=== PATIENT | female | born 1955 | race Caucasian/White ===

== ENCOUNTER → 2020-09-21 14:42 | Outpatient (CLI) | payer MEDICARE, SELFPAY ==
--- NOTE | ~2020-09-21 | MM_ITS ---
EXAMINATION: MM screening [facility] BI w charli HISTORY: Screening mammogram TECHNIQUE: Craniocaudal and mediolateral oblique 3-D tomosynthesis images were obtained and synthetic 2-D images were generated. CAD analysis was submitted and interpreted. COMPARISON: 07/23/2019, 06/20/2018, 07/25/2017 BREAST PARENCHYMAL COMPOSITION: There are scattered areas of fibroglandular density. FINDINGS: There is no evidence of suspicious mass, calcification, or architectural distortion to sugg est malignancy in either breast. There has been no suspicious interval change. IMPRESSION: 1. No mammographic evidence of malignancy. 2. Recommend routine screening mammography in one year. BI-RADS Category 1: Negative Reviewed, dictated and finalized at location A. MBLER BONDING
== END ==
PROVIDERS: PCP Internal Medicine; Visit Provider Obstetrics & Gynecology
DX: Z12.31 Encounter for screening mammogram for malignant neoplasm of breast (principal)
CPT/HCPCS: 77063; 77067

== ENCOUNTER → 2022-01-20 10:02 | Outpatient (CLI) | payer MEDICARE, SELFPAY ==
--- NOTE | ~2022-01-20 | MM_ITS ---
EXAMINATION: MM screening [facility] BI w charli HISTORY: Screening mammogram TECHNIQUE: Craniocaudal and mediolateral oblique 3-D tomosynthesis images were obtained and synthetic 2-D images were generated. CAD analysis was submitted and interpreted. COMPARISON: 09/21/2020, 07/23/2019 bilateral screening mammogram examinations BREAST PARENCHYMAL COMPOSITION: There are scattered areas of fibroglandular density. FINDINGS: There is no evidence of suspicious mass, calcification, or architectural distortion to sugg est malignancy in either breast. There has been no suspicious interval change. IMPRESSION: 1. No mammographic evidence of malignancy. 2. Recommend routine screening mammography in one year. BI-RADS Category 1: Negative Reviewed, dictated and finalized at location A.
== END ==
PROVIDERS: PCP Internal Medicine; Visit Provider Obstetrics & Gynecology
DX: Z12.31 Encounter for screening mammogram for malignant neoplasm of breast (principal)
CPT/HCPCS: 77063; 77067

== ENCOUNTER 2022-11-11 09:12 | Outpatient (CLI) | payer MEDICARE, SELFPAY ==
[2022-11-11 10:09] LABS: Hematocrit 32.9 % (37.0-47.0); Hemoglobin 11.1 g/dL (12.0-15.0); Mean Corpuscular HGB Conc 33.7 g/dl (32-36); Mean Corpuscular Hemoglobin 30.1 pg (26-34); Mean Corpuscular Volume 89.2 fl (80-100); Platelet Count Result 351 k/mm3 (150-375); Red Blood Count 3.69 M/mm3 (4.2-5.4); Red Cell Distribution Width 13.6 % (11.5-14.5)
[2022-11-11 10:30] LABS: Anion Gap 4 mmol/L (8-16); Blood Urea Nitrogen 16 mg/dL (7-17); Carbon Dioxide 30 mmol/L (22-30); Chloride 102 mmol/L (98-107); Estimated Glomerular Filt Rate > 60; Glucose 101 mg/dL (65-110); Potassium 4.1 mmol/L (3.4-5.0); Sodium 136 mmol/L (137-145)
== END 2022-11-11 09:13 | disposition home or self-care (01) ==
LOC: ANHSURGERY 09:19
PROVIDERS: Anesthesiology; PCP Internal Medicine; Visit Provider Obstetrics & Gynecology
DX: N95.0 Postmenopausal bleeding (principal); Z51.81 Encounter for therapeutic drug level monitoring; Z01.818 Encounter for other preprocedural examination; I10 Essential (primary) hypertension
CPT/HCPCS: 36415; 80048; 85027; 93005

== ENCOUNTER 2022-11-17 00:18 | Day surgery (SDC) | payer MEDICARE, SELFPAY ==
[2022-11-10 15:10] VITALS: BMI 24.5
--- NOTE | 2022-11-10 15:31 | PC.NURSE ---
Report to the Outpatient Waiting Room, entrance under the green pavilion located off [facility], at time __8:15AM on date _11/17/22 . Planned Procedure Time: __10:15AM . Time changes happen often and if your time is changed the preop area will call you the afternoon before. - You and your visitor will be asked to self-screen and do not enter if you have any COVID symptoms. - Only one visitor is requested with a max of two and NO children visitors are allowed at this time. - The patient visitor may be requested to leave or wait in car when not with patient due to distancing restrictions. - A mask is optional within the hospital at this time. Patients may have clear liquids (water, carbonated beverages, clear teas, apple juice) until 3 hours prior to surgery with a maximum of 20 ounces. - No food from midnight until time of surgery Take the following medications with a SIP of water the morning of surgery: ____EYE DROPS DO NOT STOP ANY OF YOUR OTHER PRESCRIPTION MEDICATIONS PRIOR TO SURGERY ?EXCEPT THE FOLLOWING Medications to discontinue per physician ___HOLD ALL VITAMINS/SUPPLEMENTS 3 DAYS PRE-OP Date to take last dose___11/13/22 Please no make-up, nail kinyarwanda, hairspray, perfume, deodorant, or body powder the day of surgery. No jewelry (including any body piercings) or valuables the day of surgery, leave them at home. Please take a shower or bath the night before, or the morning of, surgery with an antibacterial soap. Wear comfortable, loose fitting clothing. Children are encouraged to wear pajamas. - Jewelry must be removed prior to entering the operating room. Rings and piercings that are not removed may be cut off. - The hospital will not accept responsibility for valuables. - Please leave all valuables, including medications, at home the day of surgery. If you are going home after surgery, a licensed truck driver must drive you home. - NO public transportation without another adult if you receive anesthesia. - We recommend that an adult stay with you for 24 hours following discharge. - We also recommend that you do not drive, make important decision, drink alcoholic beverages, or take any drugs that were not prescribed by your health care provider for at least 24 hours after your discharge time. Follow any additional instructions given to you from your surgeon. If you or anyone in your household have experienced Covid symptoms in the past week, please notify your surgeon or the nurse liaison at the phone number below for possible testing. Telephone instructions given to __PATIENT/HUSBAND_and asked if any additional questions and then verbalized understanding. Patient advised to call surgeon office or pre surgery nurse liaison [phone] if any additional questions.
--- NOTE | 2022-11-16 12:03 | WPDANESEPPF ---
Anes - Initial Pre Proc Eval Procedure: Operation Date: 11/17/22 09:15 Proposed Procedures p Hysteroscopy Dilation and Curettage - Venancio Trinidad MD Date/Time: 11/16/22 12:03 Surgeon: Venancio Trinidad MD Pre Op Diagnosis: post menopausal bleeding Patient Data Age: 67 Gender: F Height: 1.55 m Weight: 59 kg Allergies Allergy/AdvReac Type Severity Reaction Status Date / Time bacitracin Allergy Intermediate Swelling Verified 11/17/22 08:03 [From Neosporin ([id number])] celecoxib [From Celebrex] Allergy Intermediate Hives Verified 11/17/22 08:03 neomycin Allergy Intermediate Swelling Verified 11/17/22 08:03 [From Neosporin ([id number])] polymyxin B Allergy Intermediate Swelling Verified 11/17/22 08:03 [From Neosporin ([id number])] propoxyphene Allergy Intermediate Rash Verified 11/17/22 08:03 [From Darvocet-N 100] diclofenac AdvReac Intermediate Vomiting Verified 11/17/22 08:03 adhesive tape AdvReac Redness of Verified 11/17/22 08:03 Skin/IRRITATION Home Medications Medication Instructions Recorded Confirmed Type cetirizine 10 mg disintegrating 10 mg PO DAILY 11/24/21 11/10/22 History tablet folic acid 1 mg tablet 1 mg PO DAILY 11/24/21 11/10/22 History lisinopril 10 1 tablet PO QAM 11/24/21 11/10/22 History mg-hydrochlorothiazide 12.5 mg tablet methotrexate sodium 2.5 mg tablet 20 mg PO WEEKLY 11/24/21 11/10/22 History montelukast 10 mg tablet 10 mg PO DAILY 11/24/21 11/10/22 History rosuvastatin 20 mg tablet 20 mg PO DAILY 11/24/21 11/10/22 History tofacitinib 11 mg tablet,extended 11 mg PO DAILY 11/24/21 11/10/22 History release 24 hr (Xeljanz XR) brimonidine 0.2 % eye drops 1 drp LEFT EYE BID 11/10/22 11/10/22 History ibuprofen 200 mg tablet (Advil) 400 mg PO Q6H PRN Pain 11/10/22 11/10/22 History obvxtqdlpspd-lnoibfpf-nfrwkw tablet 1 tablet PO DAILY 11/10/22 11/10/22 History psyllium husk 0.4 gram capsule 0.4 g PO DAILY 11/10/22 11/10/22 History (Metamucil) timolol maleate 0.5 % eye drops 1 drp LEFT EYE BID 11/10/22 11/10/22 History clobetasol 0.05 % topical ointment 1 applic topical DAILY 11/11/22 11/11/22 History Patient hx anesthesia problems: none Family hx anesthesia problems: none Results Review: All pre-operative results and documents have been reviewed as part of the pre-operative evaluation. [facility] Past Medical History Medical History Acute arthritis Glaucoma High cholesterol Hypertension Psoriasis Surgical History Surgical History (Updated 10/25/22 @ 08:39 by LIANG Mueller) H/O eye surgery cataract removal implant in left eye History of dilation and curettage History of mandibular surgery (~1993) wires in jaw from surgery Family History Family History Other Carcinoma of colon Cerebrovascular accident Diabetes mellitus Heart disease Neoplasm of brain Social History Social History (Updated 10/25/22 @ 08:36 by LIANG Mueller) Smoking packs per day: 1 Smoking cigarettes per day: 20.0 Years smoked: 35 Smoking pack-years: 35.00 Smoking status: Former smoker Tobacco type: cigarettes Smoking end date: 03/18/11 Additional smoking assessment comments: quit 2010 Alcohol intake: never Substance use: never Substance use type: does not use Living arrangements: with family Additional living arrangements comments: [facility] Occupation/Education: retired Gender identity (if verbalized by the patient): Female Sexual Orientation (if Verbalized by the Patient): Straight or Heterosexual Spiritual care concerns: No Anes - Eval Final PreProcedure Day of Procedure 11/16/22 12:03 Patient weight: normal Heart: regular rate and rhythm Lungs: clear to auscultation and normal air movement Airway: Mallampati scale class II Neurological: alert and o
--- NOTE | 2022-11-17 06:59 | WPDHPUPDATE1 ---
History and Physical Update Update Date/Time: 11/17/22 06:59 History and Physical has been reviewed, including an updated exam of the patient. There are NO changes in the patient's condition. Risks, benefits, and alternatives have been discussed and questions answered. Patient agrees to proceed with procedure.
[2022-11-17] MEDS: LACTATED RINGERS 1,000 ML 30 ML IV CONT ×2 (07:45→09:34)
[2022-11-17] MEDS: ACETAMINOPHEN 500 MG TABLET 1000 MG PO (08:05)
[2022-11-17] MEDS: KETOROLAC 30 MG/ML VIAL (*BKC) IV PUSH (09:32)
--- NOTE | 2022-11-17 09:39 | W.PM.PROC2 ---
Procedure Note - Detailed Date of Procedure 11/17/22 Pre-op Diagnosis post menopausal bleeding Post-op Diagnosis Same Procedure Performed 1. Hysteroscopy with uterine curettings Surgeon Venancio Trinidad MD Anesthesia MAC and Local Findings Hysteroscopic exam reveals atrophic endometrial cavity with no abnormalities, no polyps or other evidence of etiology of bleed. Description of Procedure Patient was prepped and draped in usual manner for this procedure. Pediatric speculum was placed in the vagina the cervix was readily evaluated. Hysteroscope was placed in the endometrial cavity without difficulty and atrophy was noted. Throughout the entire endometrial cavity as well as endocervical canal there were no abnormalities noted. Curettings were obtained though tissue was scant due to the atrophy. At this point the procedure was considered terminated and the patient was sent to the recovery room in stable condition. Estimated Blood Loss 10 Drains No Packing No Pathology Yes Complications No immediate complications Condition Stable Disposition PACU [facility] Billing Surgery - Charge Forward: Surgery Billing
[2022-11-17 09:43] VITALS: BP 153/77; PULSE 70; RESP 16; O2SAT 94
[2022-11-17 10:10] VITALS: BP 120/94; PULSE 78; RESP 16
[2022-11-17] MEDS: oxyCODONE HCL (*CRX) 5 MG TAB IR PO (10:15)
[2022-11-17 10:39] VITALS: BP 165/67; PULSE 58; RESP 16
== END 2022-11-17 10:45 | disposition home or self-care (01) ==
PROVIDERS: PCP Internal Medicine; Visit Provider Obstetrics & Gynecology
PROC: 0U5B8ZZ Destruction of Endometrium, Via Natural or Artificial Opening Endoscopic (ICD-10-PCS; CPT 58563; principal; 2022-11-17 09:15)
DX: C54.1 Malignant neoplasm of endometrium (principal); N95.0 Postmenopausal bleeding; E78.00 Pure hypercholesterolemia, unspecified; I10 Essential (primary) hypertension; H40.9 Unspecified glaucoma; L40.9 Psoriasis, unspecified; Z87.891 Personal history of nicotine dependence
CPT/HCPCS: 58558; 36415; 80048; 85027; 88305; A9270; J1100; J1885; J2250; J2405; J2704; J3010; J7120

== ENCOUNTER → 2023-02-08 13:52 | Outpatient (CLI) | payer MEDICARE, SELFPAY ==
--- NOTE | ~2023-02-08 | CT_ITS ---
CT Scan of the Chest without Contrast: Clinical Indication: Lung cancer screening, personal history of nicotine dependence Technique: Contiguous sections were acquired throughout the chest without intravenous contrast. Dose reduction technique was used on this scan by utilizing automated exposure control and iterative recon struction technique. The dose-length product (DLP) was 49.73 mGy-cm. Findings: There is no evidence of any significant mediastinal, hilar or axillary lymphadenopathy. There are mil d atherosclerotic calcifications of the aorta and coronary arteries. There is no evidence of pleural or pericardial effusion. Possible very subtle 6 mm groundglass opacity in the right upper lobe (axial image 23). No other pulm onary nodule seen. Images through the upper abdomen reveal no abnormalities. Impression: Lung RADS 2: Benign appearance. 12 month follow-up screening CT advised. Reviewed, dictated and finalized at location . Impression: Lung RADS 2: Benign appearance. 12 month follow-up screening CT advised.
== END ==
PROVIDERS: PCP Internal Medicine; Visit Provider Internal Medicine
DX: Z12.2 Encounter for screening for malignant neoplasm of respiratory organs (principal); F17.210 Nicotine dependence, cigarettes, uncomplicated
CPT/HCPCS: 71271

== ENCOUNTER → 2023-02-08 13:58 | Outpatient (CLI) | payer MEDICARE, SELFPAY ==
--- NOTE | ~2023-02-08 | MM_ITS ---
EXAMINATION: MM screening [facility] BI w charli HISTORY: Screening mammogram TECHNIQUE: Craniocaudal and mediolateral oblique 3-D tomosynthesis images were obtained and synthetic 2-D images were generated. CAD analysis was submitted and interpreted. COMPARISON: 01/20/2022, 10/01/2020, 07/23/2019 BREAST PARENCHYMAL COMPOSITION: There are scattered areas of fibroglandular density. FINDINGS: No suspicious mass, calcification, or architectural distortion are identified in either valeria ast to suggest malignancy. There has been no suspicious interval change. IMPRESSION: 1. No mammographic evidence of malignancy. 2. Recommend routine screening mammography in one year. BI-RADS Category 1: Negative Reviewed, dictated and finalized at location A.
== END ==
PROVIDERS: Visit Provider Obstetrics & Gynecology
DX: Z12.31 Encounter for screening mammogram for malignant neoplasm of breast (principal)
CPT/HCPCS: 77063; 77067

== ENCOUNTER 2024-03-25 14:36 | Outpatient (CLI) | payer MEDICARE, SELFPAY ==
--- NOTE | ~2024-03-25 | MM_ITS ---
EXAMINATION: MM screening [facility] BI w charli HISTORY: Screening TECHNIQUE: Craniocaudal and mediolateral oblique 3-D tomosynthesis images were obtained and synthetic 2-D images were generated. CAD analysis was submitted and interpreted. COMPARISON: Comparison to multiple prior studies sequentially, with oldest reviewed study dated 03/2017. BREAST PARENCHYMAL COMPOSITION: Not dense: There are scattered areas of fibroglandular density. FINDINGS: There is no evidence of suspicious mass, calcification, or architectural distortion to sugg est malignancy in either breast. There has been no suspicious interval change. IMPRESSION: 1. No mammographic evidence of malignancy. 2. Recommend routine screening mammography in one year. BI-RADS Category 1: Negative Reviewed, dictated and finalized at location B.
== END 2024-03-25 14:37 ==
LOC: MICIMG 14:39
PROVIDERS: Visit Provider Obstetrics & Gynecology
DX: Z12.31 Encounter for screening mammogram for malignant neoplasm of breast (principal)
CPT/HCPCS: 77063; 77067

== ENCOUNTER 2024-03-25 14:41 | Outpatient (CLI) | payer MEDICARE, SELFPAY ==
--- NOTE | ~2024-03-25 | XR_ITS ---
EXAMINATION: XR cervical spine 4-5V DATE: 03/25/2024 15:10 INDICATION: Neck pain and stiffness and tingling. Segmental and somatic dysfunction of head region. TECHNIQUE: 5 views of cervical spine were obtained. COMPARISON: None. FINDINGS: There is 3 degrees dextrocurvature of cervical spine. Vertebral body heights are normal. Th ere is moderately decreased disc height at C3-C4 and severely decreased disc height at C4-C5, C5-C6, and C6-C7. There is multilevel uncovertebral joint osteoarthritis, severe bilaterally from C4-C5 thro ugh C6-C7. There is multilevel facet joint osteoarthritis, severe at C7-T1. There is mild central can al stenosis at C4-C5, C5-C6, and C6-C7. On the left, there is mild neural foraminal stenosis at C4-C 5, C5-C6, and C6-C7. On the right, there is mild neural foraminal stenosis at C3-C4 and moderate neur al foraminal stenosis at C4-C5, C5-C6, and C6-C7. No prevertebral soft tissue swelling. There is wire fixation of the mandible. IMPRESSION: 1. Severe cervical spondylosis. Reviewed, dictated and finalized at location E.
== END 2024-03-25 14:42 ==
PROVIDERS: PCP Chiropractor; Visit Provider Internal Medicine
DX: M99.00 Segmental and somatic dysfunction of head region (principal); M47.892 Other spondylosis, cervical region
CPT/HCPCS: 72050

== ENCOUNTER 2024-04-17 07:00 | Outpatient (NON) | payer MEDICARE, SELFPAY | END 2024-04-17 07:01 | disposition home or self-care (01) | LOC: ANHLAB 04-18 10:00 | PROVIDERS: PCP Internal Medicine; Visit Provider Internal Medicine Gastroenterology | DX: R63.4 Abnormal weight loss (principal) | CPT/HCPCS: 88305 ==

== ENCOUNTER 2024-04-17 08:20 | Day surgery (SDC) | payer MEDICARE, SELFPAY ==
[2024-04-05 09:58] VITALS: BMI 22.5
[2024-04-05 10:43] VITALS: BMI 22.1
--- NOTE | 2024-04-16 13:32 | WPDANESEPPF ---
Anes - Initial Pre Proc Eval Procedure: Operation Date: 04/17/24 10:30 Proposed Procedures p Esophagogastroduodenoscopy - Loyd Tobar MD Date/Time: 04/16/24 13:32 Surgeon: Loyd oTbar MD Pre Op Diagnosis: Weight loss. Patient Data Age: 68 Gender: F Height: 1.55 m Weight: 53 kg Allergies Allergy/AdvReac Type Severity Reaction Status Date / Time bacitracin Allergy Intermediate Swelling Verified 04/17/24 09:15 [From Neosporin ([id number])] celecoxib [From Celebrex] Allergy Intermediate Hives Verified 04/17/24 09:15 neomycin Allergy Intermediate Swelling Verified 04/17/24 09:15 [From Neosporin ([id number])] polymyxin B Allergy Intermediate Swelling Verified 04/17/24 09:15 [From Neosporin ([id number]-vls-vlzfh)] propoxyphene Allergy Intermediate Rash Verified 04/17/24 09:15 [From Darvocet-N 100] diclofenac AdvReac Intermediate Vomiting Verified 04/17/24 09:15 adhesive tape AdvReac Redness of Verified 04/17/24 09:15 Skin/IRRITATION Home Medications Medication Instructions Recorded Confirmed Type cetirizine 10 mg disintegrating 10 mg PO DAILY 11/24/21 04/17/24 History tablet folic acid 1 mg tablet 1 mg PO DAILY 11/24/21 04/17/24 History lisinopril 10 1 tablet PO QAM 11/24/21 04/17/24 History mg-hydrochlorothiazide 12.5 mg tablet methotrexate sodium 2.5 mg tablet 10 mg PO WEEKLY 11/24/21 04/17/24 History montelukast 10 mg tablet 10 mg PO DAILY 11/24/21 04/17/24 History rosuvastatin 20 mg tablet 20 mg PO DAILY 11/24/21 04/17/24 History tofacitinib 11 mg tablet,extended 11 mg PO DAILY 11/24/21 04/17/24 History release 24 hr (Xeljanz XR) brimonidine 0.2 % eye drops 1 drp LEFT EYE BID 11/10/22 04/17/24 History ibuprofen 200 mg tablet (Advil) 400 mg PO Q6H PRN Pain 11/10/22 04/17/24 History xaullvabjqge-zjxykmkl-qaimmc tablet 1 tablet PO DAILY 11/10/22 04/17/24 History psyllium husk 0.4 gram capsule 0.4 g PO DAILY 11/10/22 04/17/24 History (Metamucil) timolol maleate 0.5 % eye drops 1 drp LEFT EYE BID 11/10/22 04/17/24 History clobetasol 0.05 % topical ointment 1 applic topical DAILY PRN other 11/11/22 04/17/24 History omeprazole 20 mg capsule,delayed 20 mg PO DIRECTED PRN other 04/05/24 04/17/24 History release ondansetron HCl 4 mg tablet 4 mg PO QAM PRN Nausea 04/05/24 04/17/24 History prednisone 2.5 mg tablet 2.5 mg PO DIRECTED PRN other 04/05/24 04/17/24 History risankizumab-rzaa 150 mg/mL 150 mg subcut DIRECTED 04/05/24 04/17/24 History subcutaneous pen injector (Sherly) Patient hx anesthesia problems: none Family hx anesthesia problems: none Results Review: All pre-operative results and documents have been reviewed as part of the pre-operative evaluation. [facility] Past Medical History Medical History (Updated 04/17/24 @ 10:45 by Osbaldo Valencia DO) Acute arthritis Glaucoma High cholesterol History of cervical cancer last radiation 04/2023 Hypertension Psoriasis Surgical History Surgical History H/O eye surgery cataract removal implant in left eye History of dilation and curettage History of hysteroscopy (11/17/22) Hysteroscopy with uterine curettings / Endometrioid carcinoma, FIGO grade 1 History of mandibular surgery (~1993) wires in jaw from surgery Family History Family History Other Carcinoma of colon Cerebrovascular accident Diabetes mellitus Heart disease Neoplasm of brain Social History Social History Smoking packs per day: 1 Smoking cigarettes per day: 20.0 Years smoked: 35 Smoking pack-years: 35.00 Smoking status: Former smoker Tobacco type: cigarettes Smoking end date: 03/18/11 Additional smoking assessment comments: quit 2011 Alcohol intake: never Substance use: never Substance use type: castillo
[2024-04-17 09:24] VITALS: BP 124/68; PULSE 71; RESP 16; TEMP 36.6; O2SAT 100; BMI 21.3
[2024-04-17] MEDS: LACTATED RINGERS 1,000 ML 150 ML IV CONT (09:41)
--- NOTE | 2024-04-17 10:09 | PM.HPGS ---
History of Present Illness History of Present Illness Consent: Risks, benefits, and alternatives have been discussed and questions answered. Patient agrees to proceed with procedure. Chief complaint: Weight loss. Narrative: Louann Hogan is a 68 year old female referred for EGD by Dr. Otero. Patient reports having had cervical cancer a year and a half has been receiving radiation until April of last year. She stopped this medication is subsequently has had intermittent vomiting and diarrhea. She states the diarrhea has improved. She never had bleeding. She is to have intermittent vomiting. Patient reports that she was seen somewhere in [place] and underwent a colonoscopy and a CT scan within the last month that were reported to be normal. These are not available for review and have not been forwarded to me. EGD is now requested. Patient is currently on a trial of omeprazole 20mg p.o. daily. Family history noncontributory. Status of carcinoma in previous test results not available for review. Patient reports a 15lb weight loss recently. She has had a significant weight loss prior to this as well. Review of Systems Review of Systems: All systems reviewed & are unremarkable except as noted in HPI and below PMFSH Past Medical History Medical History Acute arthritis Glaucoma High cholesterol Hypertension Psoriasis Surgical History Surgical History H/O eye surgery cataract removal implant in left eye History of dilation and curettage History of hysteroscopy (11/17/22) Hysteroscopy with uterine curettings / Endometrioid carcinoma, FIGO grade 1 History of mandibular surgery (~1993) wires in jaw from surgery Family History Family History Other Carcinoma of colon Cerebrovascular accident Diabetes mellitus Heart disease Neoplasm of brain Social History Social History Smoking packs per day: 1 Smoking cigarettes per day: 20.0 Years smoked: 35 Smoking pack-years: 35.00 Smoking status: Former smoker Tobacco type: cigarettes Smoking end date: 03/18/11 Additional smoking assessment comments: quit 2010 Alcohol intake: never Substance use: never Substance use type: does not use Living arrangements: with family Additional living arrangements comments: [facility] Occupation/Education: retired Gender identity (if verbalized by the patient): Female Sexual Orientation (if Verbalized by the Patient): Straight or Heterosexual Spiritual care concerns: No Meds Home Medications and Allergies Home Medications Medication Instructions Recorded Confirmed Type cetirizine 10 mg disintegrating 10 mg PO DAILY 11/24/21 04/17/24 History tablet folic acid 1 mg tablet 1 mg PO DAILY 11/24/21 04/17/24 History lisinopril 10 1 tablet PO QAM 11/24/21 04/17/24 History mg-hydrochlorothiazide 12.5 mg tablet methotrexate sodium 2.5 mg tablet 10 mg PO WEEKLY 11/24/21 04/17/24 History montelukast 10 mg tablet 10 mg PO DAILY 11/24/21 04/17/24 History rosuvastatin 20 mg tablet 20 mg PO DAILY 11/24/21 04/17/24 History tofacitinib 11 mg tablet,extended 11 mg PO DAILY 11/24/21 04/17/24 History release 24 hr (Xeljanz XR) brimonidine 0.2 % eye drops 1 drp LEFT EYE BID 11/10/22 04/17/24 History ibuprofen 200 mg tablet (Advil) 400 mg PO Q6H PRN Pain 11/10/22 04/17/24 History hxieezjixqxd-ymikyrtw-sguazq tablet 1 tablet PO DAILY 11/10/22 04/17/24 History psyllium husk 0.4 gram capsule 0.4 g PO DAILY 11/10/22 04/17/24 History (Metamucil) timolol maleate 0.5 % eye drops 1 drp LEFT EYE BID 11/10/22 04/17/24 History clobetasol 0.05 % topical ointment 1 applic topical DAILY PRN other 11/11/22 04/17/24 History omeprazole 20 mg capsule,delayed 20 mg PO DIRECTED PRN other 07
[2024-04-17 11:02] VITALS: BP 104/61; PULSE 78; RESP 16; O2SAT 97
--- NOTE | 2024-04-17 11:08 | WPDANESPN ---
Anes - Prog Note Post-Op Date/Time: 04/17/24 11:08 Cardiovascular status: normal Respiratory status: normal Airway patency: baseline Mental status: baseline Post-Op hydration status: normal Vital Signs: Last Vital Signs Temp 36.6 C 04/17/24 09:24 Pulse 71 04/17/24 09:24 Resp 16 04/17/24 09:24 BP 124/68 04/17/24 09:24 Pulse Ox 100 04/17/24 09:24 O2 Del Method Room Air 04/17/24 09:24 Pain Score (VAS): 0 I/O: Intake & Output 04/16/24 04/17/24 04/17/24 23:59 07:59 15:59 Intake Total 300 Balance 300 Post-procedural complaints: none Patient Feedback: Patient satisfied with anesthetic care. Other Findings: Patient vital signs back to baseline. Patient denies nausea and vomiting. Patient's pain under control. Patient OK for discharge.
[2024-04-17 11:12] VITALS: BP 106/59; PULSE 79; RESP 16; O2SAT 97
[2024-04-17 11:22] VITALS: BP 125/64; PULSE 72; RESP 16; O2SAT 100
== END 2024-04-17 11:48 | disposition home or self-care (01) ==
PROVIDERS: PCP Internal Medicine; Visit Provider Internal Medicine Gastroenterology
PROC: 0DJ08ZZ Inspection of Upper Intestinal Tract, Via Natural or Artificial Opening Endoscopic (ICD-10-PCS; CPT 43235; principal; 2024-04-17 10:30)
DX: R11.0 Nausea (principal); K29.60 Other gastritis without bleeding
CPT/HCPCS: 43239

== ENCOUNTER 2024-07-18 12:24 | Outpatient (CLI) | payer MEDICARE, SELFPAY ==
--- NOTE | ~2024-07-18 | XR_ITS ---
XR abdomen/kub 1V Ordering provider: Chioma Mcbride APRN History: . hx of SBO, abdominal pain, VOMITING DIAHRREA X 14 MON. . Comparison: None. FINDINGS: BOWEL: Nonobstructive bowel gas pattern. ORGANOMEGALY: None. SIGNIFICANT PATHOLOGIC CALCIFICATIONS: None. OTHER: No free air is seen under the diaphragm. Degenerative spine. IMPRESSION: NO ACUTE ABDOMINAL FINDINGS. Reviewed, dictated and finalized at location A.
[2024-07-18 13:02] LABS: Hematocrit 25.6 % (37.0-47.0); Hemoglobin 8.2 g/dL (12.0-15.0); Mean Corpuscular Hemoglobin 25.9 pg (26-34); Mean Corpuscular Volume 80.8 fl (80-100); Mean Platelet Volume 8.8 fl (7.4-10.4); Platelet Count Result 382 k/mm3 (150-375); Red Blood Count 3.17 M/mm3 (4.2-5.4); Red Cell Distribution Width 16.1 % (11.5-14.5); White Blood Count 6.4 K/mm3 (4.5-10.0)
[2024-07-18 13:15] LABS: Alanine Aminotransferase 20 U/L (6-35); Alkaline Phosphatase 74 U/L (38-126); Anion Gap 8 mmol/L (4-12); Aspartate Amino Transferase 34 U/L (14-36); Bilirubin,Total 0.2 mg/dL (0.2-1.3); Blood Urea Nitrogen 9 mg/dL (7-17); CRP 1.8 mg/dL (<1.0); Calcium 8.9 mg/dL (8.4-10.2); Carbon Dioxide 29 mmol/L (22-30); Chloride 99 mmol/L (98-107); Estimated Glomerular Filt Rate > 60; Glucose 87 mg/dL (65-110); Potassium 3.1 mmol/L (3.4-5.0); Sodium 136 mmol/L (137-145)
[2024-07-18 13:28] LABS: Erythrocyte Sedimentation Rate 45 mm/hr (0-20)
[2024-07-25 03:23] LABS: Immunoglobulin A 64 mg/dL (70-320); TTG IGA AB <1.0 U/mL; Tissue Transglutaminase IgG Ab <1.0 U/mL
== END 2024-07-18 12:25 | disposition home or self-care (01) ==
PROVIDERS: PCP Internal Medicine; Visit Provider Nurse Practitioner
DX: R63.4 Abnormal weight loss (principal); K52.9 Noninfective gastroenteritis and colitis, unspecified; R10.30 Lower abdominal pain, unspecified; R11.2 Nausea with vomiting, unspecified; Z85.41 Personal history of malignant neoplasm of cervix uteri; Z87.19 Personal history of other diseases of the digestive system; R11.10 Vomiting, unspecified
CPT/HCPCS: 36415; 74018; 80053; 82784; 84443; 85027; 85652; 86140; 86364

== ENCOUNTER 2024-07-19 07:25 | Outpatient (NON) | payer MEDICARE, SELFPAY ==
[2024-07-24 16:19] LABS: Concentrate Ova and Parasites No Ova or Parasites; Trichrome Ova and Parasites No Ova or Parasites
== END 2024-07-19 07:26 | disposition home or self-care (01) ==
LOC: ANHLAB 07:29
PROVIDERS: PCP Internal Medicine; Visit Provider Nurse Practitioner
DX: K52.9 Noninfective gastroenteritis and colitis, unspecified (principal); R10.30 Lower abdominal pain, unspecified; R11.2 Nausea with vomiting, unspecified; Z85.41 Personal history of malignant neoplasm of cervix uteri; Z87.19 Personal history of other diseases of the digestive system
CPT/HCPCS: 82653; 83993; 87045; 87177; 87209; 87269; 87427; 87449; 87493

== ENCOUNTER 2024-08-21 11:09 | Outpatient (CLI) | payer MEDICARE, SELFPAY ==
--- NOTE | ~2024-08-21 | CT_ITS ---
EXAMINATION: CT abdomen pelvis w con DATE: 08/21/2024 11:34 INDICATION: Abdominal pain, nausea and vomiting. TECHNIQUE: Computed tomography (CT) of the abdomen and pelvis was performed with 100 mL Omnipaque-350 intravenous contrast. Automated exposure control and iterative reconstruction technique were employe d. The dose-length product was 194.05 mGy-cm. COMPARISON: None FINDINGS: Lung bases are clear. Heart size is normal. No pericardial or pleural effusion. Liver, gallbladder, s pleen, pancreas and bilateral adrenal glands are normal. There centimeter low-attenuation bilateral r enal cysts. There is mild diffuse colonic wall thickening with mild stranding and haziness to the per icolonic fat consistent with colitis. There are fluid-filled loops of small bowel, mildly dilated pro ximally measuring up to 3.5 cm but which gradually taper with intermittent small relatively decompres sed segments without a discrete transition point to suggest obstruction and would favor an ileus. Hung dder is normal. The uterus is not identified and has likely been surgically resected. Small amount of likely reactive free fluid in the deep pelvis. No abscess or free intraperitoneal gas. There is calc ified atherosclerosis of the normal caliber aorta and several the arteries arising from the aorta. N o pathologically enlarged abdominal or pelvic lymphadenopathy. Mild thoracolumbar dextrocurvature wit h moderate spondylosis. IMPRESSION: 1. Diffuse mild colonic wall thickening with mild associated pericolonic inflammatory stranding suspi cious for colitis which could be infectious, inflammatory or less likely ischemic in etiology. 2. Fluid within a few mildly dilated loops of small bowel which gradually and intermittently taper di stally without a discrete transition point to suggest obstruction and would favor an ileus. 3. Likely reactive small amount of ascites in the pelvis. Reviewed, dictated and finalized at location A. OR GRANTS OFFICER IMPRESSION: 1. Diffuse mild colonic wall thickening with mild associated pericolonic inflam matory stranding suspicious for colitis which could be infectious, inflammatory or less likely ischemic in etiology. 2. Fluid within a few mildly dilated loops of small bowel which gradually and i ntermittently taper distally without a discrete transition point to suggest obs truction and would favor an ileus. 3. Likely reactive small amount of ascites in the pelvis.
[2024-08-21 11:29] LABS: Estimated Glomerular Filt Rate > 60
== END 2024-08-21 11:10 | disposition home or self-care (01) ==
LOC: ANHIMG 11:13
PROVIDERS: PCP Internal Medicine; Visit Provider Nurse Practitioner
DX: A02.0 Salmonella enteritis (principal); R11.2 Nausea with vomiting, unspecified; R19.5 Other fecal abnormalities; R19.7 Diarrhea, unspecified; Z87.19 Personal history of other diseases of the digestive system
CPT/HCPCS: 74177; Q9967

== ENCOUNTER 2024-08-21 14:52 | Inpatient (IN) | payer MEDICARE, SELFPAY ==
[2024-08-21 15:08] VITALS: BP 153/86; PULSE 86; RESP 16; TEMP 36.8; O2SAT 99
[2024-08-21 17:19] LABS: Basophils Absolute Auto 0.1 K/mm3 (0.0-0.1); Basophils Percent Auto 0.9 % (0.2-1.2); Eosinophils Absolute Auto 0.1 K/mm3 (0-0.3); Eosinophils Percent Auto 0.9 % (0-4.4); Hematocrit 29.6 % (37.0-47.0); Hemoglobin 9.4 g/dL (12.0-15.0); Immature Granulocyte Absolute 0.03 K/mm3 (0.00-0.031); Immature Granulocyte Percent A 0.4 % (0-0.5); Lymphocytes Absolute Auto 0.77 K/mm3 (0.9-3.2); Mean Corpuscular HGB Conc 31.8 g/dl (32-36); Mean Corpuscular Hemoglobin 25.3 pg (26-34); Mean Corpuscular Volume 79.8 fl (80-100); Mean Platelet Volume 8.8 fl (7.4-10.4); Monocytes Absolute Auto 0.7 K/mm3 (0.1-0.6); Monocytes Percent Auto 10.5 % (2.6-8.5); Neutrophils Absolute Auto 5.3 K/mm3 (1.3-6.7); Neutrophils Percent Auto 76.3 % (45.5-73.1); Platelet Count Result 510 k/mm3 (150-375); Red Blood Count 3.71 M/mm3 (4.2-5.4); Red Cell Distribution Width 17.8 % (11.5-14.5)
[2024-08-21 17:31] LABS: Alanine Aminotransferase 18 U/L (6-35); Albumin Level 4.2 g/dL (3.5-5.1); Alkaline Phosphatase 77 U/L (38-126); Anion Gap 5 mmol/L (4-12); Aspartate Amino Transferase 36 U/L (14-36); Bilirubin,Total 0.5 mg/dL (0.2-1.3); Blood Urea Nitrogen 9 mg/dL (7-17); Calcium 9.4 mg/dL (8.4-10.2); Carbon Dioxide 30 mmol/L (22-30); Chloride 92 mmol/L (98-107); Estimated CRCL calculation 43 ml/min; Estimated Glomerular Filt Rate > 60; Glucose 103 mg/dL (65-110); Lipase 43 U/L (23-300); Potassium 3.1 mmol/L (3.4-5.0); Sodium 127 mmol/L (137-145)
--- NOTE | 2024-08-21 17:40 | ED_ITS ---
HPI - Abdominal Pain General Chief Complaint: Abdominal Pain <Vianey Braxton PA-C - Last Filed: 08/21/24 18:57> Stated Complaint: abd pain <ALEN Hong Last Filed: 08/21/24 18:57> Time Seen by Provider: 08/21/24 17:11 <Vianey Braxton PA-C - Last Filed: 08/21/24 18:57> Source: patient <ALEN Hong Last Filed: 08/21/24 18:57> Mode of arrival: ambulatory <ALEN Hong Last Filed: 08/21/24 18:57> Limitations: no limitations <ALEN Hong Last Filed: 08/21/24 18:57> History of Present Illness HPI narrative: This is a 69-year-old female that presents to the emergency department for abdominal pain. Ongoing over the last 3 days. Reports associated vomiting and diarrhea. Reports she has been having a lot abdominal troubles since she had radiation therapy last year. She has been following with GI for this recently. Her GI doctor ordered an outpatient CT scan today and prompted her to be seen in the ER after it was read. Denies fevers. <Vianey Braxton PA-C - Last Filed: 08/21/24 18:57> Related Data Home Medications: Home Medications Medication Instructions Recorded Confirmed cetirizine 10 mg disintegrating 10 mg PO DAILY 11/24/21 08/21/24 tablet folic acid 1 mg tablet 1 mg PO DAILY 11/24/21 08/21/24 lisinopril 10 1 tablet PO QAM 11/24/21 08/21/24 mg-hydrochlorothiazide 12.5 mg tablet methotrexate sodium 2.5 mg tablet 10 mg PO WEEKLY 11/24/21 08/21/24 montelukast 10 mg tablet 10 mg PO DAILY 11/24/21 08/21/24 rosuvastatin 20 mg tablet 20 mg PO DAILY 11/24/21 08/21/24 brimonidine 0.2 % eye drops 1 drp LEFT EYE BID 11/10/22 08/21/24 ibuprofen 200 mg tablet (Advil) 400 mg PO Q6H PRN Pain 11/10/22 08/21/24 fqniqhlkqakp-ikfiujuc-nicytb tablet 1 tablet PO DAILY 11/10/22 08/21/24 psyllium husk 0.4 gram capsule 0.4 g PO DAILY 11/10/22 08/21/24 (Metamucil) timolol maleate 0.5 % eye drops 1 drp LEFT EYE BID 11/10/22 08/21/24 clobetasol 0.05 % topical ointment 1 applic topical DAILY PRN other 11/11/22 08/21/24 omeprazole 20 mg capsule,delayed 20 mg PO DIRECTED PRN other 04/05/24 08/21/24 release prednisone 2.5 mg tablet 2.5 mg PO DIRECTED PRN other 04/05/24 08/21/24 <Vianey Braxton PA-C - Last Filed: 08/21/24 18:57> Allergies/Adverse Reactions: Allergies Allergy/AdvReac Type Severity Reaction Status Date / Time bacitracin Allergy Intermediate Swelling Verified 08/21/24 18:06 [From Neosporin ([id number])] celecoxib [From Celebrex] Allergy Intermediate Hives Verified 08/21/24 18:06 neomycin Allergy Intermediate Swelling Verified 08/21/24 18:06 [From Neosporin ([id number])] polymyxin B Allergy Intermediate Swelling Verified 08/21/24 18:06 [From Neosporin ([id number])] propoxyphene Allergy Intermediate Rash Verified 08/21/24 18:06 [From Darvocet-N 100] diclofenac AdvReac Intermediate Vomiting Verified 08/21/24 18:06 adhesive tape AdvReac Redness of Verified 08/21/24 18:06 Skin/IRRITATION <Vianey Braxton PA-C - Last Filed: 08/21/24 18:57> Review of Systems Review of Systems: CONSTITUTIONAL: Denies fever GASTROINTESTINAL: Reports abdominal pain, nausea, vomiting, and diarrhea. GENITOURINARY: Denies dysuria <ALEN Hong Last Filed: 08/21/24 18:57> All systems reviewed & are unremarkable except as noted in HPI and below <ALEN Hong Last Filed: 08/21/24 18:57> [facility] Past Medical History Medical History: Medical History Acute arthritis Glaucoma High cholesterol History of cervical cancer last radiation 04/2023 Hypertension Psoriasis <Vianey Braxton PA-C - Last Filed: 08/21/24 18:57> Surgical History Surgical History: Surgical History H/O eye surgery cataract removal implant in left eye History of dilation and curettage History of hysteroscopy (11/17/22) Hysteroscopy with uterine curettings / Endometrioid carcinoma, FIGO grade 1 History of mandibular surgery (~1993) wires in jaw from surgery <Vianey Braxton PA-C - Last Filed: 08/21/24 18:57> Family History Family History: Family History Other Carcinoma of colon Cerebrovascular accident Diabetes mellitus Heart disease Neoplasm of brain <Vianey Braxton PA-C - Last Filed: 08/21/24 18:57> Social History Social History: Social History Smoking packs per day: 1 Smoking cigarettes per day: 20.0 Years smoked: 35 Smoking pack-years: 35.00 Smoking status: Former smoker Tobacco type: cigarettes Smoking end date: 03/18/11 Additional smoking assessment comments: quit 2011 Alcohol intake: former Substance use: never Substance use type: does not use Do You Feel Safe in your Home?: Yes Lack of Transportation: No Lack of Food: Never True Current Housing: I Have Housing Concerned About Future Housing: No Difficulty Paying Gas/Electric Bills: No Difficulty Paying for Meds: No Currently Unemployed: No Education: Bachelor's Degree Difficulty w/ Childcare or Family Care: No Living arrangements: with family Additional [facility] arrangements comments[facility] Occupation/Education: retired Gender identity (if verbalized by the patient): Female Sexual Orientation (if Verbalized by the Patient): Straight or Heterosexual Spiritual care concerns: No <Vianey Braxton PA-C - Last Filed: 08/21/24 18:57> Exam Narrative: GENERAL: Well-appearing, well-nourished, and in no acute distress. HEAD: Normocephalic, atraumatic. EYES: EOMI. ENT: Mucous membranes moist. Oropharynx without tonsillar hypertrophy exudate or other lesions. CHEST: Clear to auscultation. No respiratory distress. No wheezes rales or rhonchi HEART: Regular rate and rhythm. No murmur heard. Normal peripheral pulses. ABDOMEN: Soft, nondistended, normal active bowel sounds. Tender to palpation throughout the abdomen, without guarding EXTREMITIES: Normal range of motion. No edema. SKIN: Warm, dry, no rash. NEURO: No focal deficits. Alert and oriented x3. PSYCH: Normal mood and affect <ALEN Hong Last Filed: 08/21/24 18:57> Course Course Emergency Course: patient updated on her workup and recommendation for admission <ALEN Hong Last Filed: 08/21/24 18:57> Consultations Consultation #1: Spoke with hospitalist about patient and workup who accepts admission <ALEN Hong Last Filed: 08/21/24 18:57> Date: 08/21/24 <ALEN Hong Last Filed: 08/21/24 18:57> Vital Signs Vital signs: Vital Signs Temperature 98.2 F 08/21/24 15:08 Pulse Rate 86 08/21/24 15:08 Respiratory Rate 16 08/21/24 15:08 Blood Pressure 153/86 H 08/21/24 15:08 Pulse Oximetry 99 08/21/24 15:08 Temperature 97 F L 08/21/24 21:20 Pulse Rate 78 08/21/24 21:34 Respiratory Rate 20 08/21/24 21:34 Blood Pressure 125/79 08/21/24 21:20 Pulse Oximetry 99 08/21/24 21:34 Oxygen Delivery Room Air 08/21/24 21:34 <ALEN Hong Last Filed: 08/21/24 18:57> Vital Signs Temperature 98.2 F 08/21/24 15:08 Pulse Rate 86 08/21/24 15:08 Respiratory Rate 16 08/21/24 15:08 Blood Pressure 153/86 H 08/21/24 15:08 Pulse Oximetry 99 08/21/24 15:08 Temperature 97 F L 08/21/24 21:20 Pulse Rate 78 08/21/24 21:34 Respiratory Rate 20 08/21/24 21:34 Blood Pressure 125/79 08/21/24 21:20 Pulse Oximetry 99 08/21/24 21:34 Oxygen Delivery Room Air 08/21/24 21:34 <Tacos Waterman MD - Last Filed: 08/22/24 00:21> MDM - Abdominal Pain MDM Narrative Medical decision making narrative: Patient presents to the ER for abnormal outpatient CT scan. She is afebrile and nontoxic appearing. Blood pressure is stable. Heart rate is normal. Cbc without leukocytosis. Shows microcytic anemia with hemoglobin 9.4. Metabolic panel with evidence of dehydration, hyponatremia, hypokalemia. Patient hydrated and electrolytes replaced. Urine without evidence of infection . CT abdomen pelvis shows findings of colitis as well as ileus. Patient updated on her workup and recommendation for admission. Spoke with hospitalist about patient and workup who accepts admission <Vianey Braxton PA-C - Last Filed: 08/21/24 18:57> Differential Diagnosis Differential diagnosis: Likely diverticulitis, small bowel obstruction and other (colitis, dehydration, electrolyte derangement) <Vianey Braxton PA-C - Last Filed: 08/21/24 18:57> Medical Records Attestation: I reviewed the patient's medical records. <Vianey Braxton PA-C - Last Filed: 08/21/24 18:57> Medical records narrative: CT abdomen/pelvis- IMPRESSION: 1. Diffuse mild colonic wall thickening with mild associated pericolonic inflammatory stranding suspicious for colitis which could be infectious, inflammatory or less likely ischemic in etiology. 2. Fluid within a few mildly dilated loops of small bowel which gradually and intermittently taper distally without a discrete transition point to suggest obstruction and would favor an ileus. 3. Likely reactive small amount of ascites in the pelvis. <Vianey Braxton PA-C - Last Filed: 08/21/24 18:57> Lab Data Attestation: I reviewed the patient's lab results. <ALEN Hong Last Filed: 08/21/24 18:57> Result diagrams: 08/21/24 16:49 08/21/24 16:49 <Vianey Braxton PA-C - Last Filed: 08/21/24 18:57> Labs: Lab Results 08/21/24 08/21/24 08/21/24 Range/Units 16:45 16:49 17:34 WBC 7.0 (4.5-10.0) K/mm3 RBC 3.71 L (4.2-5.4) M/mm3 Hgb 9.4 L (12.0-15.0) g/dL Hct 29.6 L (37.0-47.0) % MCV 79.8 L (80-100) fl MCH 25.3 L (26-34) pg MCHC 31.8 L (32-36) g/dl RDW 17.8 H (11.5-14.5) % Plt Count 510 H (150-375) k/mm3 MPV 8.8 (7.4-10.4) fl Immature Gran % (Auto) 0.4 (0-0.5) % Neut % (Auto) 76.3 H (45.5-73.1) % Lymph % (Auto) 11.0 L (18.3-44.2) % [place] % (Auto) 10.5 H (2.6-8.5) % Eos % (Auto) 0.9 (0-4.4) % Baso % (Auto) 0.9 (0.2-1.2) % Lymph # (Auto) 0.77 L (0.9-3.2) K/mm3 [place] # (Auto) 0.7 H (0.1-0.6) K/mm3 Eos # (Auto) 0.1 (0-0.3) K/mm3 Baso # (Auto) 0.1 (0.0-0.1) K/mm3 Abs Immat Gran (auto) 0.03 (0.00-0.031) K/mm3 Absolute Neuts (auto) 5.3 (1.3-6.7) K/mm3 Absolute Nucleated RBC 0.000 (0.0-0.012) K/mm3 Nucleated RBC % 0.0 (0.0-0.2) % Sodium 127 L (137-145) mmol/L Potassium 3.1 L (3.4-5.0) mmol/L Chloride 92 L (98-107) mmol/L Carbon Dioxide 30 (22-30) mmol/L Anion Gap 5 (4-12) mmol/L BUN 9 (7-17) mg/dL Creatinine 0.80 (0.7-1.0) mg/dL Estim Creat Clear Calc 43 ml/min Estimated GFR > 60 (59 - ) Glucose 103 (65-110) mg/dL Calcium 9.4 (8.4-10.2) mg/dL Magnesium 1.9 (1.6-2.3) mg/dL Total Bilirubin 0.5 (0.2-1.3) mg/dL AST 36 (14-36) U/L ALT 18 (6-35) U/L Alkaline Phosphatase 77 (38-126) U/L Total Protein 6.0 L (6.3-8.2) g/dL Albumin 4.2 (3.5-5.1) g/dL Lipase 43 (23-300) U/L Urine Color Yellow (Yellow) Urine Appearance Clear (Clear) Urine pH 7.0 (5.0-9.0) Ur Specific [place] 1.017 (1.001-1.035) Urine Protein Negative (Negative) mg/dL Urine Glucose (UA) Negative (Negative) mg/dL Urine Ketones Negative (Negative) mg/dL Ur Blood (Man) 2+ H (Negative) Urine Nitrate Negative (Negative) Urine Bilirubin Negative (Negative) Urine Urobilinogen 0.2 (<2.0) mg/dL Leukocyte Esterase Rfl Negative (Negative) MATILDE/UL Urine RBC 11-20 H (0-2) /hpf Urine WBC 0-5 (0-3) /hpf Ur Squamous Epith Cells None seen (Few) /hpf Urine Bacteria None seen /hpf Urine Casts 0-2 <Vianey Braxton PA-C - Last Filed: 08/21/24 18:57> Lab Results 08/21/24 08/21/24 08/21/24 Range/Units 16:45 16:49 17:34 WBC 7.0 (4.5-10.0) K/mm3 RBC 3.71 L (4.2-5.4) M/mm3 Hgb 9.4 L (12.0-15.0) g/dL Hct 29.6 L (37.0-47.0) % MCV 79.8 L (80-100) fl MCH 25.3 L (26-34) pg MCHC 31.8 L (32-36) g/dl RDW 17.8 H (11.5-14.5) % Plt Count 510 H (150-375) k/mm3 MPV 8.8 (7.4-10.4) fl Immature Gran % (Auto) 0.4 (0-0.5) % Neut % (Auto) 76.3 H (45.5-73.1) % Lymph % (Auto) 11.0 L (18.3-44.2) % [place] % (Auto) 10.5 H (2.6-8.5) % Eos % (Auto) 0.9 (0-4.4) % Baso % (Auto) 0.9 (0.2-1.2) % Lymph # (Auto) 0.77 L (0.9-3.2) K/mm3 [place] # (Auto) 0.7 H (0.1-0.6) K/mm3 Eos # (Auto) 0.1 (0-0.3) K/mm3 Baso # (Auto) 0.1 (0.0-0.1) K/mm3 Abs Immat Gran (auto) 0.03 (0.00-0.031) K/mm3 Absolute Neuts (auto) 5.3 (1.3-6.7) K/mm3 Absolute Nucleated RBC 0.000 (0.0-0.012) K/mm3 Nucleated RBC % 0.0 (0.0-0.2) % Sodium 127 L (137-145) mmol/L Potassium 3.1 L (3.4-5.0) mmol/L Chloride 92 L (98-107) mmol/L Carbon Dioxide 30 (22-30) mmol/L Anion Gap 5 (4-12) mmol/L BUN 9 (7-17) mg/dL Creatinine 0.80 (0.7-1.0) mg/dL Estim Creat Clear Calc 43 ml/min Estimated GFR > 60 (59 - ) Glucose 103 (65-110) mg/dL Calcium 9.4 (8.4-10.2) mg/dL Magnesium 1.9 (1.6-2.3) mg/dL Total Bilirubin 0.5 (0.2-1.3) mg/dL AST 36 (14-36) U/L ALT 18 (6-35) U/L Alkaline Phosphatase 77 (38-126) U/L Total Protein 6.0 L (6.3-8.2) g/dL Albumin 4.2 (3.5-5.1) g/dL Lipase 43 (23-300) U/L Urine Color Yellow (Yellow) Urine Appearance Clear (Clear) Urine pH 7.0 (5.0-9.0) Ur Specific [place] 1.017 (1.001-1.035) Urine Protein Negative (Negative) mg/dL Urine Glucose (UA) Negative (Negative) mg/dL Urine Ketones Negative (Negative) mg/dL Ur Blood (Man) 2+ H (Negative) Urine Nitrate Negative (Negative) Urine Bilirubin Negative (Negative) Urine Urobilinogen 0.2 (<2.0) mg/dL Leukocyte Esterase Rfl Negative (Negative) MATILDE/UL Urine RBC 11-20 H (0-2) /hpf Urine WBC 0-5 (0-3) /hpf Ur Squamous Epith Cells None seen (Few) /hpf Urine Bacteria None seen /hpf Urine Casts 0-2 <Tacos Waterman MD - Last Filed: 08/22/24 00:21> Critical Care Time Critical Care Time Critical Care Time: No <Vianey Braxton PA-C - Last Filed: 08/21/24 18:57> Discharge Plan Discharge Clinical Impression: Colitis, Acute hyponatremia, Acute dehydration <Vianey Braxton PA-C - Last Filed: 08/21/24 18:57> Patient Disposition: Still a Patient <Vianey Braxton PA-C - Last Filed: 08/21/24 18:57> Condition: Stable <Vianey Braxton PA-C - Last Filed: 08/21/24 18:57> Attestation Supervising Provider Attestation This visit was performed by both a physician and an APC (KIAN Braxton). I performed all aspects of the MDM as documented. <Tacos Waterman MD - Last Filed: 08/22/24 00:21>
[2024-08-21 17:48] LABS: Add Urine Microscopic? YES; Appearance Urine Clear (Clear); Bacteria Urine None Seen /hpf; Bilirubin Urine Negative (Negative); Blood Urine 2+ (Negative); Color Urine Yellow (Yellow); Glucose Urine UA Negative (Negative); Ketones Urine Negative (Negative); Leukocyte Esterase Ur Negative LEU/UL (Negative); Nitrate Urine Negative (Negative); Non Pathogenic Casts 0-2; Protein Urine Negative (Negative); Specific Grav Ur 1.017 (1.001-1.035); Squamous Epithelial Cell Urine None Seen /hpf (Few); Urobilinogen Urine 0.2 mg/dL (<2.0); WBC Urine 0-5 /hpf (0-3)
[2024-08-21 18:05] VITALS: BP 146/86; PULSE 70; RESP 18; O2SAT 99
[2024-08-21] MEDS: MORPHINE SULFATE (*CRX) 4 MG/ML INJ IV PUSH (18:06)
[2024-08-21] MEDS: SODIUM CHLORIDE 0.9% IV 1,000 ML 999 ML IV CONT (18:06)
[2024-08-21] MEDS: ONDANSETRON INJ 4 MG/2 ML VIAL IV PUSH (18:06)
[2024-08-21 18:15] LABS: Magnesium 1.9 mg/dL (1.6-2.3)
[2024-08-21] MEDS: POTASSIUM CHLORIDE INJ 40 MEQ in SODIUM CHLORIDE 0.9% IV 500 ML 130 MEQ IVPB (18:37)
[2024-08-21] MEDS: PIPERACILLN/TAZ 3.375GM/NS50ML 3.375 GM/50 ML BAG IVPB (18:40)
--- NOTE | 2024-08-21 19:15 | PC.NURSE ---
Assumed care of patient after receiving report from JT Marie. No questions at this time.
[2024-08-21 19:21] VITALS: BP 150/78; PULSE 78; RESP 20; O2SAT 99
--- NOTE | 2024-08-21 19:36 | PM.IMHP ---
H&P: HPI History of Present Illness Date/Time: 08/21/24 19:36 Chief Complaint: abdominal pain, nausea, vomiting Narrative: This is a 69-year-old female patient admitted to the hospital due to abdominal pain with nausea and vomiting CT imaging showing ileus versus obstruction. Patient has a history of cervical cancer treated with radiation with subsequent recurrent bowel obstructions verses ileus due to adhesions. Patient reports that her gastroenterology provider has her on FODMAP diet to try to help her recurrent symptoms. Patient reported that her abdomen has been hurting a couple of days and she was very nauseous today. Patient reports her stool went from formed to soft to yellow mustard appearance. Patient reports that due to her history of psoriatic arthritis she is on multiple medications that hamper her immune system. Patient was wearing a mask and was upset that staff was not wearing a mask into her room. She requested that all staff wear a mask into her room because of her immune system. On workup in the emergency department patient noted to have hyponatremia 127 and stable chronic anemia with hemoglobin of 9.4. Mild hematuria noted in urine no signs of infection. Patient reports she has had these bowel issues ongoing for over a year and has lost a significant amount of weight from [address] scan abdomen pelvis reveals the following: IMPRESSION: 1. Diffuse mild colonic wall thickening with mild associated pericolonic inflammatory stranding suspicious for colitis which could be infectious, inflammatory or less likely ischemic in etiology. 2. Fluid within a few mildly dilated loops of small bowel which gradually and intermittently taper distally without a discrete transition point to suggest obstruction and would favor an ileus. 3. Likely reactive small amount of ascites in the pelvis. Review of Systems Review of Systems: All systems reviewed & are unremarkable except as noted in HPI and below [facility] Past Medical History Medical History (Updated 08/22/24 @ 02:31 by Tahir Rodarte APRN) Glaucoma High cholesterol History of cervical cancer last radiation 04/2023 Hypertension Psoriatic arthritis Surgical History Surgical History H/O eye surgery cataract removal implant in left eye History of dilation and curettage History of hysteroscopy (11/17/22) Hysteroscopy with uterine curettings / Endometrioid carcinoma, FIGO grade 1 History of mandibular surgery (~1993) wires in jaw from surgery Family History Family History Other Carcinoma of colon Cerebrovascular accident Diabetes mellitus Heart disease Neoplasm of brain Social History Social History Smoking packs per day: 1 Smoking cigarettes per day: 20.0 Years smoked: 35 Smoking pack-years: 35.00 Smoking status: Former smoker Tobacco type: cigarettes Smoking end date: 03/18/11 Additional smoking assessment comments: quit 2010 Alcohol intake: former Substance use: never Substance use type: does not use Do You Feel Safe in your Home?: Yes Lack of Transportation: No Lack of Food: Never True Current Housing: I Have Housing Concerned About Future Housing: No Difficulty Paying Gas/Electric Bills: No Difficulty Paying for Meds: No Currently Unemployed: No Education: Bachelor's Degree Difficulty w/ Childcare or Family Care: No Living arrangements: with family Additional living arrangements comments: [facility] Occupation/Education: retired Gender identity (if verbalized by the patient): Female Sexual Orientation (if Verbalized by the Patient): Straight or Heterosexual Spiritual care concerns: No Meds Home Medications and Allergies Home Medications Medication Instructions Recorded Confirmed Type cetirizine 10 mg disintegrating 10 mg PO DAILY 11/24/21 08/21/24 History tablet folic acid 1 mg tablet 1 mg PO DAILY 11/24/21 08/21/24 History lisinopril 10 1 tablet PO QAM 11/24/21 08/21/24 History mg-hydrochlorothiazide 12.5 mg tablet methotrexate sodium 2.5 mg tablet 10 mg PO WEEKLY 11/24/21 08/21/24 History montelukast 10 mg tablet 10 mg PO DAILY 11/24/21 08/21/24 History rosuvastatin 20 mg tablet 20 mg PO DAILY 11/24/21 08/21/24 History brimonidine 0.2 % eye drops 1 drp LEFT EYE BID 11/10/22 08/21/24 History ibuprofen 200 mg tablet (Advil) 400 mg PO Q6H PRN Pain 11/10/22 08/21/24 History sketiljuwlqd-zwsbqrsi-zxungr tablet 1 tablet PO DAILY 11/10/22 08/21/24 History psyllium husk 0.4 gram capsule 0.4 g PO DAILY 11/10/22 08/21/24 History (Metamucil) timolol maleate 0.5 % eye drops 1 drp LEFT EYE BID 11/10/22 08/21/24 History clobetasol 0.05 % topical ointment 1 applic topical DAILY PRN other 11/11/22 08/21/24 History omeprazole 20 mg capsule,delayed 20 mg PO DIRECTED PRN other 04/05/24 08/21/24 History release prednisone 2.5 mg tablet 2.5 mg PO DIRECTED PRN other 04/05/24 08/21/24 History metoclopramide HCl 5 mg tablet 5 mg PO Q6H PRN nausea and 08/21/24 08/21/24 Rx (Reglan) vomiting #20 tabs upadacitinib 15 mg tablet,extended 15 mg PO DAILY 08/22/24 08/22/24 History release 24 hr (Rinvoq) Allergies Allergy/AdvReac Type Severity Reaction Status Date / Time bacitracin Allergy Intermediate Swelling Verified 08/21/24 18:06 [From Neosporin ([id number])] celecoxib [From Celebrex] Allergy Intermediate Hives Verified 08/21/24 18:06 neomycin Allergy Intermediate Swelling Verified 08/21/24 18:06 [From Neosporin ([id number])] polymyxin B Allergy Intermediate Swelling Verified 08/21/24 18:06 [From Neosporin ([id number])] propoxyphene Allergy Intermediate Rash Verified 08/21/24 18:06 [From Darvocet-N 100] diclofenac AdvReac Intermediate Vomiting Verified 08/21/24 18:06 adhesive tape AdvReac Redness of Verified 08/21/24 18:06 Skin/IRRITATION Vital Signs Vital Signs - 24 hr 08/21/24 15:08 08/21/24 18:05 08/21/24 19:21 Temperature 36.8 C Pulse Rate 86 70 78 Respiratory Rate 16 18 20 Blood Pressure 153/86 H 146/86 H 150/78 H Pulse Oximetry 99 99 99 Exam Narrative: GENERAL: Chronically ill-appearing, anxious appearing, wearing N95 mask HEAD: Normocephalic, atraumatic. EYES: EOMI. CHEST: Clear to auscultation. No respiratory distress. No wheezes rales or rhonchi HEART: Regular rate and rhythm. No murmur heard. Normal peripheral pulses. ABDOMEN: Soft, nondistended, hypoactive bowel sounds. Tender to palpation throughout the abdomen, without guarding EXTREMITIES: Normal range of motion. No edema. SKIN: Warm, dry, no rash. NEURO: No focal deficits. Alert and oriented x3. PSYCH: Normal mood and affect H&P: Results Labs Labs: Short CBC 08/21/24 Range/Units 16:49 WBC 7.0 (4.5-10.0) K/mm3 Hgb 9.4 L (12.0-15.0) g/dL Hct 29.6 L (37.0-47.0) % Plt Count 510 H (150-375) k/mm3 BMP 08/21/24 16:49 Sodium 127 L Potassium 3.1 L Chloride 92 L Carbon Dioxide 30 BUN 9 Creatinine 0.80 Glucose 103 Calcium 9.4 Liver Function 08/21/24 Range/Units 16:49 Total Bilirubin 0.5 (0.2-1.3) mg/dL AST 36 (14-36) U/L ALT 18 (6-35) U/L Alkaline Phosphatase 77 (38-126) U/L Albumin 4.2 (3.5-5.1) g/dL Urine 08/21/24 Range/Units 17:34 Urine Color Yellow (Yellow) Urine Appearance Clear (Clear) Urine pH 7.0 (5.0-9.0) Ur Specific [place] 1.017 (1.001-1.035) Urine Protein Negative (Negative) mg/dL Urine Glucose (UA) Negative (Negative) mg/dL IMPRESSION: 1. Diffuse mild colonic wall thickening with mild associated pericolonic inflammatory stranding suspicious for colitis which could be infectious, inflammatory or less likely ischemic in etiology. 2. Fluid within a few mildly dilated loops of small bowel which gradually and intermittently taper distally without a discrete transition point to suggest obstruction and would favor an ileus. 3. Likely reactive small amount of ascites in the pelvis. Pulse Oximetry SpO2 results: 99% on room air Attestation: I personally reviewed and interpreted this pulse oximetry as follows: Interpretation: No need for supplemental oxygenation at this time Imaging CT scan - abdomen: Radiologist's impression: EXAMINATION: CT abdomen pelvis w con DATE: 08/21/2024 11:34 INDICATION: Abdominal pain, nausea and vomiting. TECHNIQUE: Computed tomography (CT) of the abdomen and pelvis was performed with 100 mL Omnipaque-350 intravenous contrast. Automated exposure control and iterative reconstruction technique were employed. The dose-length product was 194.05 mGy-cm. COMPARISON: None FINDINGS: Lung bases are clear. Heart size is normal. No pericardial or pleural effusion. Liver, gallbladder, spleen, pancreas and bilateral adrenal glands are normal. There centimeter low-attenuation bilateral renal cysts. There is mild diffuse colonic wall thickening with mild stranding and haziness to the pericolonic fat consistent with colitis. There are fluid-filled loops of small bowel, mildly dilated proximally measuring up to 3.5 cm but which gradually taper with intermittent small relatively decompressed segments without a discrete transition point to suggest obstruction and would favor an ileus. Bladder is normal. The uterus is not identified and has likely been surgically resected. Small amount of likely reactive free fluid in the deep pelvis. No abscess or free intraperitoneal gas. There is calcified atherosclerosis of the normal caliber aorta and several the arteries arising from the aorta. No pathologically enlarged abdominal or pelvic lymphadenopathy. Mild thoracolumbar dextrocurvature with moderate spondylosis. IMPRESSION: 1. Diffuse mild colonic wall thickening with mild associated pericolonic inflammatory stranding suspicious for colitis which could be infectious, inflammatory or less likely ischemic in etiology. 2. Fluid within a few mildly dilated loops of small bowel which gradually and intermittently taper distally without a discrete transition point to suggest obstruction and would favor an ileus. 3. Likely reactive small amount of ascites in the pelvis. Reviewed, dictated and finalized at location A. NT SERVICES COORDINATOR Assessment and Plan Assessment and plan (1) Colitis: Code(s): K52.9 - Noninfective gastroenteritis and colitis, unspecified Status: Acute Assessment and Plan: -Abdominal pain, nausea/vomiting, change in stool consistency and appearance -CT indicates colitis as well as ileus vs obstruction (favoring ileus) -No recent antibiotics to suspect C-Diff though patient is immune compromised due to medications for psoriatic arthritis -Stool cultures ordered -IV antibiotics started in ER and continued (2) Acute hyponatremia: Code(s): E87.1 - Hypo-osmolality and hyponatremia Status: Acute Assessment and Plan: -[place] to be related to dehydration and poor nutrition recently as result of abdominal pain, nausea and vomiting -ER gave 1000 mL Normal Saline bolus and started on 125 mL/hr continuous fluids. -Slowed rate to 75 mL/hr -Repeat BMP shows sodium 133 -Ordered morning labs, monitor for signs of overcorrection (3) Acute dehydration: Code(s): E86.0 - Dehydration Status: Acute Assessment and Plan: See above (4) Ileus: Code(s): K56.7 - Ileus, unspecified Status: Acute Assessment and Plan: -Recurrent troubles with obstruction vs ileus -Consider NG tube and Surgery consult if patient has vomiting or worsening symptoms (5) Psoriatic arthritis: Code(s): L40.50 - Arthropathic psoriasis, unspecified Status: Acute Assessment and Plan: -Ordered Reverse Isolation, all team members to wear a mask when entering patient room -Patient to have bring her Rinvoq from home -Cautiously restart home oral meds when feasible Quality VTE Prophylaxis VTE prophylaxis: pharmacologic ordered (Lovenox) Hospitalist [facility] Advance Care Plan I have confirmed that the patient's Advanced Care Plan is present, code status is documented, or surrogate decision maker is listed in patient medical record.: Yes Medication Reconciliation I have utilized all available resources to obtain, update and review the patients current medications (includes all prescriptions, OTC, herbals, cannabis, and nutritional supplements).: Yes
--- NOTE | 2024-08-21 21:18 | ADMGEN ---
This patient, Louann Hogan, was admitted to Medical Room 249-01. Patient/family oriented to hospital policies and general routines including ID bracelet, bed and alarms, visiting hours, pain management, procedures, bathroom and other care routines, personal items, smoking policy, room service/diet, and visiting hours. Information on how to activate the Rapid Response Team has been discussed. Patient/Family are encouraged to report perceived risks to care and to ask questions if they do not understand what they are told or what they should do.
[2024-08-21 21:20] VITALS: BP 125/79; PULSE 77; RESP 18; TEMP 36.1; O2SAT 99
[2024-08-21 21:25] VITALS: BMI 21.3
[2024-08-21 21:34] VITALS: PULSE 78; RESP 20; O2SAT 99
[2024-08-21] MEDS: SODIUM CHLORIDE 0.9% IV 1,000 ML 125 ML IV CONT (22:51)
[2024-08-22] MEDS: PIPERACILLN/TAZ 3.375GM/NS50ML 3.375 GM/50 ML BAG IVPB ×5 (00:29→23:48)
[2024-08-22 00:51] LABS: Anion Gap 2 mmol/L (4-12); Blood Urea Nitrogen 7 mg/dL (7-17); Calcium 8.4 mg/dL (8.4-10.2); Carbon Dioxide 27 mmol/L (22-30); Chloride 104 mmol/L (98-107); Estimated CRCL calculation 49 ml/min; Estimated Glomerular Filt Rate > 60; Glucose 89 mg/dL (65-110); Potassium 4.3 mmol/L (3.4-5.0); Sodium 133 mmol/L (137-145)
[2024-08-22 05:48] VITALS: BP 138/65; PULSE 82; RESP 16; TEMP 37.1; O2SAT 99
[2024-08-22 06:18] LABS: Basophils Absolute Auto 0.1 K/mm3 (0.0-0.1); Basophils Percent Auto 0.7 % (0.2-1.2); Eosinophils Absolute Auto 0.1 K/mm3 (0-0.3); Eosinophils Percent Auto 1.4 % (0-4.4); Hematocrit 25.8 % (37.0-47.0); Immature Granulocyte Absolute 0.03 K/mm3 (0.00-0.031); Immature Granulocyte Percent A 0.4 % (0-0.5); Lymphocytes Absolute Auto 0.61 K/mm3 (0.9-3.2); Lymphocytes Percent Auto 8.8 % (18.3-44.2); Mean Corpuscular Hemoglobin 25.4 pg (26-34); Mean Corpuscular Volume 81.9 fl (80-100); Mean Platelet Volume 8.7 fl (7.4-10.4); Monocytes Absolute Auto 0.7 K/mm3 (0.1-0.6); Monocytes Percent Auto 9.5 % (2.6-8.5); Neutrophils Absolute Auto 5.5 K/mm3 (1.3-6.7); Neutrophils Percent Auto 79.2 % (45.5-73.1); Platelet Count Result 420 k/mm3 (150-375); Red Blood Count 3.15 M/mm3 (4.2-5.4); Red Cell Distribution Width 17.7 % (11.5-14.5); White Blood Count 6.9 K/mm3 (4.5-10.0)
[2024-08-22 06:37] LABS: Alanine Aminotransferase 13 U/L (6-35); Albumin Level 3.1 g/dL (3.5-5.1); Alkaline Phosphatase 59 U/L (38-126); Anion Gap 4 mmol/L (4-12); Aspartate Amino Transferase 23 U/L (14-36); Bilirubin,Total 0.5 mg/dL (0.2-1.3); Blood Urea Nitrogen 6 mg/dL (7-17); Calcium 8.1 mg/dL (8.4-10.2); Carbon Dioxide 25 mmol/L (22-30); Chloride 105 mmol/L (98-107); Estimated CRCL calculation 49 ml/min; Estimated Glomerular Filt Rate > 60; Glucose 83 mg/dL (65-110); Magnesium 1.8 mg/dL (1.6-2.3); Potassium 3.6 mmol/L (3.4-5.0); Sodium 134 mmol/L (137-145)
--- NOTE | 2024-08-22 07:08 | PM.IMPN ---
Progress Note: A&P Assessment and Plan (1) Colitis: Code(s): K52.9 - Noninfective gastroenteritis and colitis, unspecified Status: Acute Assessment and Plan: -Abdominal pain, nausea/vomiting, change in stool consistency and appearance -CT indicates colitis as well as ileus vs obstruction (favoring ileus) -No recent antibiotics to suspect C-Diff though patient is immune compromised due to medications for psoriatic arthritis -Stool cultures ordered -IV Zosyn (2) Acute hyponatremia: Code(s): E87.1 - Hypo-osmolality and hyponatremia Status: Acute Assessment and Plan: -[place] to be related to dehydration and poor nutrition recently as result of abdominal pain, nausea and vomiting -ER gave 1000 mL Normal Saline bolus and started on 125 mL/hr continuous fluids. -Slowed rate to 75 mL/hr -Repeat BMP shows sodium 133 -Ordered morning labs, monitor for signs of overcorrection Could be due to hydrochlorothiazide Currently holding hydrochlorothiazide (3) Acute dehydration: Code(s): E86.0 - Dehydration Status: Acute Assessment and Plan: See above (4) Ileus: Code(s): K56.7 - Ileus, unspecified Status: Acute Assessment and Plan: No need for NG tube at this time -Recurrent troubles with obstruction vs ileus -Consider NG tube and Surgery consult if patient has vomiting or worsening symptoms (5) Psoriatic arthritis: Code(s): L40.50 - Arthropathic psoriasis, unspecified Status: Acute Assessment and Plan: -Ordered Reverse Isolation, all team members to wear a mask when entering patient room -Patient to have bring her Rinvoq from home -Cautiously restart home oral meds when feasible Time Spent With Patient Time with patient: Greater than 35 minutes Subjective Date/time seen: 08/22/24 07:08 Interval history: 69-year-old female patient admitted to the hospital due to abdominal pain with nausea and vomiting CT imaging showing ileus versus obstruction and colitis Patient states that her belly pain is improved somewhat overnight Review of Systems Review of Systems: All systems reviewed & are unremarkable except as noted in HPI and below Exam Narrative: GENERAL: Chronically ill-appearing, anxious appearing, wearing N95 mask HEAD: Normocephalic, atraumatic. EYES: EOMI. CHEST: Clear to auscultation. No respiratory distress. No wheezes rales or rhonchi HEART: Regular rate and rhythm. No murmur heard. Normal peripheral pulses. ABDOMEN: Soft, nondistended, hypoactive bowel sounds. Tender to palpation throughout the abdomen, without guarding EXTREMITIES: Normal range of motion. No edema. SKIN: Warm, dry, no rash. NEURO: No focal deficits. Alert and oriented x3. PSYCH: Normal mood and affect Objective Data Vital Signs Vital Signs: Vital Signs - 24 hr 08/21/24 15:08 08/21/24 18:05 08/21/24 19:21 Temperature 98.2 F Pulse Rate 86 70 78 Respiratory Rate 16 18 20 Blood Pressure 153/86 H 146/86 H 150/78 H Pulse Oximetry 99 99 99 Oxygen Delivery 08/21/24 21:34 08/21/24 21:20 08/22/24 05:48 Temperature 97 F L 98.7 F Pulse Rate 78 77 82 Respiratory Rate 20 18 16 Blood Pressure 125/79 138/65 Pulse Oximetry 99 99 99 Oxygen Delivery Room Air Intake/Output Intake/Output: Intake & Output 08/19/24 08/20/24 08/21/24 08/22/24 23:59 23:59 23:59 23:59 Intake Total 1133.3 50 Output Total 1000 Balance 1133.3 -950 Meds/Results Medications: Active Medications Generic Name Dose Route Start Last Admin Trade Name Freq PRN Reason Stop Dose Admin Brimonidine Tartrate 1 drop 08/22/24 09:00 Brimonidine Tartrate 0.2% Op Soln 5 Ml Btl LEFT EYE Q12HR SEVERO Enoxaparin Sodium 40 mg 08/22/24 09:00 Enoxaparin 40 Mg/0.4 Ml Syringe SUB-Q DAILY SEVERO Sodium Chloride 1,000 mls @ 75 mls/hr 08/21/24 18:45 08/21/24 23:31 Normal Saline Iv IV CONT 75 mls/hr .[id number] SEVERO Infusion Piperacillin/Tazobactam/Dextrose 3.375 gm in 50 mls @ 100 mls/hr 08/22/24 01:00 08/22/24 05:13 Zosyn 3.375 Gm/Ns 50 Ml IVPB 100 mls/hr Q6HR SEVERO Administration Miscellaneous Information 0 each 08/22/24 00:01 Upadacitinib Nonformulary Can Pt Bring From Home? XX 09/21/24 00:00 [facility] Non-Formulary Medication 15 mg 08/22/24 09:00 Upadacitinib [Rinvoq] PO 09/21/24 08:59 DAILY [facility] Ondansetron HCl 4 mg 08/21/24 23:22 Ondansetron Inj 4 Mg/2 Ml Vial IV PUSH Q6H PRN Nausea And Vomiting Pantoprazole Sodium 40 mg 08/22/24 09:00 Pantoprazole Sodium Iv 40 Mg Vial IV PUSH QAM [facility] Timolol Maleate 1 drop 08/22/24 09:00 Timolol Maleate 0.5% Op Soln 5 Ml Bottle LEFT EYE Q12HR [facility] Labs Labs: Laboratory Results - last 24 hr 08/21/24 08/21/24 08/21/24 16:45 16:49 17:34 WBC 7.0 RBC 3.71 L Hgb 9.4 L Hct 29.6 L MCV 79.8 L MCH 25.3 L MCHC 31.8 L RDW 17.8 H Plt Count 510 H MPV 8.8 Immature Gran % (Auto) 0.4 Neut % (Auto) 76.3 H Lymph % (Auto) 11.0 L [place] % (Auto) 10.5 H Eos % (Auto) 0.9 Baso % (Auto) 0.9 Lymph # (Auto) 0.77 L [place] # (Auto) 0.7 H Eos # (Auto) 0.1 Baso # (Auto) 0.1 Abs Immat Gran (auto) 0.03 Absolute Neuts (auto) 5.3 Absolute Nucleated RBC 0.000 Nucleated RBC % 0.0 Sodium 127 L Potassium 3.1 L Chloride 92 L Carbon Dioxide 30 Anion Gap 5 BUN 9 Creatinine 0.80 Estim Creat Clear Calc 43 Estimated GFR > 60 Glucose 103 Calcium 9.4 Magnesium 1.9 Total Bilirubin 0.5 AST 36 ALT 18 Alkaline Phosphatase 77 Total Protein 6.0 L Albumin 4.2 Lipase 43 Urine Color Yellow Urine Appearance Clear Urine pH 7.0 Ur Specific [place] 1.017 Urine Protein Negative Urine Glucose (UA) Negative Urine Ketones Negative Ur Blood (Man) 2+ H Urine Nitrate Negative Urine Bilirubin Negative Urine Urobilinogen 0.2 Leukocyte Esterase Rfl Negative Urine RBC 11-20 H Urine WBC 0-5 Ur Squamous Epith Cells None seen Urine Bacteria None seen Urine Casts 0-2 08/22/24 08/22/24 00:13 05:58 WBC 6.9 RBC 3.15 L Hgb 8.0 L Hct 25.8 L MCV 81.9 MCH 25.4 L MCHC 31.0 L RDW 17.7 H Plt Count 420 H MPV 8.7 Immature Gran % (Auto) 0.4 Neut % (Auto) 79.2 H Lymph % (Auto) 8.8 L [place] % (Auto) 9.5 H Eos % (Auto) 1.4 Baso % (Auto) 0.7 Lymph # (Auto) 0.61 L [place] # (Auto) 0.7 H Eos # (Auto) 0.1 Baso # (Auto) 0.1 Abs Immat Gran (auto) 0.03 Absolute Neuts (auto) 5.5 Absolute Nucleated RBC 0.000 Nucleated RBC % 0.0 Sodium 133 L 134 L Potassium 4.3 3.6 Chloride 104 105 Carbon Dioxide 27 25 Anion Gap 2 L 4 BUN 7 6 L Creatinine 0.70 0.70 Estim Creat Clear Calc 49 49 Estimated GFR > 60 > 60 Glucose 89 83 Calcium 8.4 8.1 L Magnesium 1.8 Total Bilirubin 0.5 AST 23 ALT 13 Alkaline Phosphatase 59 Total Protein 5.0 L Albumin 3.1 L Lipase Urine Color Urine Appearance Urine pH Ur Specific [place] Urine Protein Urine Glucose (UA) Urine Ketones Ur Blood (Man) Urine Nitrate Urine Bilirubin Urine Urobilinogen Leukocyte Esterase Rfl Urine RBC Urine WBC Ur Squamous Epith Cells Urine Bacteria Urine Casts Quality VTE Prophylaxis VTE prophylaxis: pharmacologic ordered (Lovenox) Hospitalist [facility] Advance Care Plan I have confirmed that the patient's Advanced Care Plan is present, code status is documented, or surrogate decision maker is listed in patient medical record.: Yes Medication Reconciliation I have utilized all available resources to obtain, update and review the patients current medications (includes all prescriptions, OTC, herbals, cannabis, and nutritional supplements).: Yes
[2024-08-22] MEDS: PANTOPRAZOLE SODIUM IV 40 MG VIAL IV PUSH (08:45)
[2024-08-22] MEDS: TIMOLOL MALEATE 0.5% OP SOLN 5 ML BOTTLE 1 DROP LEFT EYE ×2 (08:45→20:32)
[2024-08-22 08:46] VITALS: RESP 16; O2SAT 99
[2024-08-22] MEDS: ENOXAPARIN 40 MG/0.4 ML SYRINGE SUB-Q (08:46)
[2024-08-22] MEDS: BRIMONIDINE TARTRATE 0.2% OP SOLN 5 ML BTL 1 DROP LEFT EYE ×2 (08:46→20:32)
--- NOTE | 2024-08-22 10:31 | PHAR ---
HOME MED RINVOQ (UPADACITINIB)) ER TABLETS 15 MG. BROUGHT DOWN IN MANUFACTURERS BOTTLE. VERIFIED BY PHARMACY.
[2024-08-22] MEDS: UPADACITINIB 15 MG 15 EACH PO (10:52)
[2024-08-22] MEDS: SODIUM CHLORIDE 0.9% IV 1,000 ML 75 ML IV CONT (11:56)
[2024-08-22 14:00] VITALS: BP 145/59; PULSE 76; RESP 18; TEMP 36.7; O2SAT 99
[2024-08-22] MEDS: oxyCODONE/ACETAMINOPHEN (*CRX) 5-325 MG TABLET 1 TABLET PO ×2 (16:32→22:36)
[2024-08-22 20:00] VITALS: O2SAT 99
[2024-08-22] MEDS: ACETAMINOPHEN 325 MG TABLET 650 MG PO (21:47)
[2024-08-22 22:00] VITALS: BP 139/65; PULSE 67; RESP 18; TEMP 36.6; O2SAT 97
[2024-08-23] MEDS: SODIUM CHLORIDE 0.9% IV 1,000 ML 75 ML IV CONT (02:46)
[2024-08-23 04:49] LABS: Basophils Absolute Auto 0.1 K/mm3 (0.0-0.1); Basophils Percent Auto 0.8 % (0.2-1.2); Eosinophils Absolute Auto 0.1 K/mm3 (0-0.3); Eosinophils Percent Auto 0.9 % (0-4.4); Hematocrit 28.1 % (37.0-47.0); Hemoglobin 8.9 g/dL (12.0-15.0); Immature Granulocyte Absolute 0.04 K/mm3 (0.00-0.031); Immature Granulocyte Percent A 0.5 % (0-0.5); Lymphocytes Percent Auto 7.6 % (18.3-44.2); Mean Corpuscular HGB Conc 31.7 g/dl (32-36); Mean Corpuscular Hemoglobin 25.9 pg (26-34); Mean Corpuscular Volume 81.9 fl (80-100); Mean Platelet Volume 8.7 fl (7.4-10.4); Monocytes Absolute Auto 0.5 K/mm3 (0.1-0.6); Monocytes Percent Auto 6.7 % (2.6-8.5); Neutrophils Absolute Auto 6.6 K/mm3 (1.3-6.7); Neutrophils Percent Auto 83.5 % (45.5-73.1); Platelet Count Result 446 k/mm3 (150-375); Red Blood Count 3.43 M/mm3 (4.2-5.4); Red Cell Distribution Width 17.6 % (11.5-14.5); White Blood Count 7.9 K/mm3 (4.5-10.0)
[2024-08-23 05:07] LABS: Alanine Aminotransferase 15 U/L (6-35); Albumin Level 3.9 g/dL (3.5-5.1); Alkaline Phosphatase 69 U/L (38-126); Anion Gap 14 mmol/L (4-12); Aspartate Amino Transferase 27 U/L (14-36); Bilirubin,Total 0.6 mg/dL (0.2-1.3); Blood Urea Nitrogen 9 mg/dL (7-17); Calcium 8.4 mg/dL (8.4-10.2); Carbon Dioxide 17 mmol/L (22-30); Chloride 103 mmol/L (98-107); Estimated CRCL calculation 57 ml/min; Estimated Glomerular Filt Rate > 60; Glucose 46 mg/dL (65-110); Magnesium 1.8 mg/dL (1.6-2.3); Potassium 3.5 mmol/L (3.4-5.0); Sodium 134 mmol/L (137-145)
[2024-08-23 05:16] LABS: Glucose Point of Care 47 mg/dl (65-105)
[2024-08-23] MEDS: DEXTROSE 50% 25 GM/50 ML SYRINGE IV PUSH (05:47)
[2024-08-23 05:54] VITALS: BP 173/62; PULSE 71; RESP 18; TEMP 36.4; O2SAT 98
[2024-08-23] MEDS: oxyCODONE/ACETAMINOPHEN (*CRX) 5-325 MG TABLET 1 TABLET PO ×2 (06:16→19:36)
[2024-08-23] MEDS: PIPERACILLN/TAZ 3.375GM/NS50ML 3.375 GM/50 ML BAG IVPB ×2 (06:16→12:30)
[2024-08-23 06:40] LABS: Glucose Point of Care 175 mg/dl (65-105)
[2024-08-23 07:57] LABS: Glucose Point of Care 211 mg/dl (65-105)
[2024-08-23] MEDS: LORATADINE 10 MG TABLET PO (08:29)
[2024-08-23] MEDS: UPADACITINIB 15 MG 15 EACH PO (08:30)
[2024-08-23] MEDS: TIMOLOL MALEATE 0.5% OP SOLN 5 ML BOTTLE 1 DROP LEFT EYE ×2 (08:31→20:50)
[2024-08-23] MEDS: BRIMONIDINE TARTRATE 0.2% OP SOLN 5 ML BTL 1 DROP LEFT EYE ×2 (08:31→20:50)
[2024-08-23] MEDS: ENOXAPARIN 40 MG/0.4 ML SYRINGE SUB-Q (08:32)
[2024-08-23] MEDS: DEXTROSE 5%/LACTATED RINGERS 1,000 ML 75 ML IV CONT ×2 (08:33→22:51)
[2024-08-23] MEDS: PANTOPRAZOLE SODIUM IV 40 MG VIAL IV PUSH (08:33)
--- NOTE | 2024-08-23 10:32 | PM.IMPN ---
Progress Note: A&P Assessment and Plan (1) Colitis: Code(s): K52.9 - Noninfective gastroenteritis and colitis, unspecified Status: Acute Assessment and Plan: -Abdominal pain, nausea/vomiting, change in stool consistency and appearance -CT indicates colitis as well as ileus vs obstruction (favoring ileus) -No recent antibiotics to suspect C-Diff though patient is immune compromised due to medications for psoriatic arthritis -Stool cultures ordered -IV Zosyn Will change to Augmentin as patient toleration orals. (2) Acute hyponatremia: Code(s): E87.1 - Hypo-osmolality and hyponatremia Status: Acute Assessment and Plan: -[place] to be related to dehydration and poor nutrition recently as result of abdominal pain, nausea and vomiting -ER gave 1000 mL Normal Saline bolus and started on 125 mL/hr continuous fluids. -Slowed rate to 75 mL/hr -Repeat BMP shows sodium 133 -Ordered morning labs, monitor for signs of overcorrection Could be due to hydrochlorothiazide Currently holding hydrochlorothiazide (3) Acute dehydration: Code(s): E86.0 - Dehydration Status: Acute Assessment and Plan: See above (4) Ileus: Code(s): K56.7 - Ileus, unspecified Status: Acute Assessment and Plan: No need for NG tube at this time -Recurrent troubles with obstruction vs ileus -Consider NG tube and Surgery consult if patient has vomiting or worsening symptoms (5) Psoriatic arthritis: Code(s): L40.50 - Arthropathic psoriasis, unspecified Status: Acute Assessment and Plan: -Ordered Reverse Isolation, all team members to wear a mask when entering patient room -Patient to have bring her Rinvoq from home -Cautiously restart home oral meds when feasible Plan Advance diet, liquids 08/23, solids on 08/24 as tolerated Restart remaining oral home meds as tolerated Q6H accucheck and D5LR at 75mL/hr until handling full diet and glucose stable D/C Zosyn, start Augmentin for colitis Time Spent With Patient Time with patient: Greater than 35 minutes Subjective Date/time seen: 08/23/24 10:32 Interval history: Patient feeling better, less nausea, less pain. She is ambulatory, passing gas. Advanced diet to clear liquids for lunch and full liquids for dinner as long as she tolerates. Patient had hypoglycemia in the morning. On LR D5 at 75 mL/hr with Q6H accuchecks, hypoglycemia protocol in place. Review of Systems Review of Systems: All systems reviewed & are unremarkable except as noted in HPI and below Exam Narrative: GENERAL: Chronically ill-appearing, anxious appearing, wearing [id number] mask HEAD: Normocephalic, atraumatic. EYES: EOMI. CHEST: Clear to auscultation. No respiratory distress. No wheezes rales or rhonchi HEART: Regular rate and rhythm. No murmur heard. Normal peripheral pulses. ABDOMEN: Soft, nondistended, hypoactive bowel sounds. Tender to palpation throughout the abdomen, without guarding EXTREMITIES: Normal range of motion. No edema. SKIN: Warm, dry, no rash. NEURO: No focal deficits. Alert and oriented x3. PSYCH: Normal mood and affect Objective Data Vital Signs Vital Signs: Vital Signs - 24 hr 08/22/24 14:00 08/22/24 20:00 08/22/24 22:00 Temperature 36.7 C 36.6 C Pulse Rate 76 67 Respiratory Rate 18 18 Blood Pressure 145/59 H 139/65 Pulse Oximetry 99 99 97 Oxygen Delivery Room Air 08/23/24 05:54 Temperature 36.4 C Pulse Rate 71 Respiratory Rate 18 Blood Pressure 173/62 H Pulse Oximetry 98 Oxygen Delivery Intake/Output Intake/Output: Intake & Output 08/20/24 08/21/24 08/22/24 08/23/24 23:59 23:59 23:59 23:59 Intake Total 1133.3 1483.0 1083.7 Output Total 2800 1300 Balance 1133.3 -1317.0 -216.3 Meds/Results Medications: Active Medications Generic Name Dose Route Start Last Admin Trade Name Freq PRN Reason Stop Dose Admin Acetaminophen 650 mg 08/22/24 16:04 08/22/24 21:47 Acetaminophen 325 Mg Tablet PO 650 mg Q6H PRN Administration Mild Pain (1-3) or Fever Brimonidine Tartrate 1 drop 08/22/24 09:00 08/23/24 08:31 Brimonidine Tartrate 0.2% Op Soln 5 Ml Btl LEFT EYE 1 drop Q12HR SEVERO Administration Dextrose 12.5 gm 08/23/24 07:44 Dextrose 50% 25 Gm/50 Ml Syringe IV PUSH PRN PRN Hypoglycemia Protocol Enoxaparin Sodium 40 mg 08/22/24 09:00 08/23/24 08:32 Enoxaparin 40 Mg/0.4 Ml Syringe SUB-Q 40 mg DAILY SEVERO Administration Folic Acid 1 mg 08/24/24 09:00 Folic Acid 1 Mg Tablet PO DAILY SEVERO Glucagon 1 mg 08/23/24 07:44 Glucagon For Inj 1 Mg Vial IM PRN PRN Hypoglycemia Protocol Glucose 15 gm 08/23/24 07:44 Glucose Oral Gel 15 Gm Of Glucse In 37.5 Gm Tube PO PRN PRN Hypoglycemia Protocol Piperacillin/Tazobactam/Dextrose 3.375 gm in 50 mls @ 100 mls/hr 08/22/24 01:00 08/23/24 06:16 Zosyn 3.375 Gm/Ns 50 Ml IVPB 100 mls/hr Q6HR SEVERO Administration Dextrose/Lactated Ringer's 1,000 mls @ 75 mls/hr 08/23/24 07:45 08/23/24 08:33 Dextrose 5%/Lactated Ringers IV CONT 75 mls/hr .[id number] SEVERO Administration Dextrose 1,000 mls @ 100 mls/hr 08/23/24 07:44 Dextrose 5% 1,000 Ml IVPB PRN PRN Hypoglycemia Protocol Ibuprofen 400 mg 08/23/24 10:27 Ibuprofen 400 Mg Tablet PO Q6H PRN Pain Loratadine 10 mg 08/23/24 09:00 08/23/24 08:29 Loratadine 10 Mg Tablet PO 09/22/24 08:59 10 mg DAILY SEVERO Administration Methotrexate 10 mg 08/30/24 09:00 Methotrexate 2.5 Mg Tab (*Chemo) PO WEEKLY SEVERO Metoclopramide HCl 5 mg 08/23/24 10:27 Metoclopramide Hcl 5 Mg Tablet PO Q6H PRN nausea and vomiting Montelukast Sodium 10 mg 08/24/24 09:00 Montelukast Sodium 10 Mg Tablet PO DAILY [facility] Multivitamins/Minerals 1 tablet 08/24/24 09:00 Opti-Gen Tab PO DAILY [facility] Upadacitinib [Rinvoq 15 mg 08/22/24 11:00 08/23/24 08:30 ] 15 Mg Tablet PO 09/21/24 10:59 15 mg Extended Release 24 DAILY SEVERO Administration Hr Non-Formulary Medication 1 tablet 08/24/24 09:00 Lisinopril-Hydrochlorothiazide PO 09/23/24 08:59 QAM [facility] Ondansetron HCl 4 mg 08/21/24 23:22 Ondansetron Inj 4 Mg/2 Ml Vial IV PUSH Q6H PRN Nausea And Vomiting Oxycodone/Acetaminophen 1 tablet 08/22/24 16:05 08/23/24 06:16 Oxycodone/Acetaminophen (*Crx) 5-325 Mg Tablet PO 1 tablet Q6H PRN Administration pain 4-10 Pantoprazole Sodium 40 mg 08/22/24 09:00 08/23/24 08:33 Pantoprazole Sodium Iv 40 Mg Vial IV PUSH 40 mg QAM [facility] Administration Rosuvastatin Calcium 20 mg 08/23/24 09:00 08/23/24 08:33 Rosuvastatin 20 Mg Tablet PO Not Given DAILY [facility] Timolol Maleate 1 drop 08/22/24 09:00 08/23/24 08:31 Timolol Maleate 0.5% Op Soln 5 Ml Bottle LEFT EYE 1 drop Q12HR SEVERO Administration Labs Labs: Laboratory Results - last 24 hr 08/23/24 08/23/24 08/23/24 04:33 05:12 06:15 WBC 7.9 RBC 3.43 L Hgb 8.9 L Hct 28.1 L MCV 81.9 MCH 25.9 L MCHC 31.7 L RDW 17.6 H Plt Count 446 H MPV 8.7 Immature Gran % (Auto) 0.5 Neut % (Auto) 83.5 H Lymph % (Auto) 7.6 L [place] % (Auto) 6.7 Eos % (Auto) 0.9 Baso % (Auto) 0.8 Lymph # (Auto) 0.60 L [place] # (Auto) 0.5 Eos # (Auto) 0.1 Baso # (Auto) 0.1 Abs Immat Gran (auto) 0.04 H Absolute Neuts (auto) 6.6 Absolute Nucleated RBC 0.000 Nucleated RBC % 0.0 Sodium 134 L Potassium 3.5 Chloride 103 Carbon Dioxide 17 L Anion Gap 14 H BUN 9 Creatinine 0.60 L Estim Creat Clear Calc 57 Estimated GFR > 60 Glucose 46 L* POC Capillary Glucose 47 L* 211 H Calcium 8.4 Magnesium 1.8 Total Bilirubin 0.6 AST 27 ALT 15 Alkaline Phosphatase 69 Total Protein 6.0 L Albumin 3.9 08/23/24 06:35 WBC RBC Hgb Hct MCV MCH MCHC RDW Plt Count MPV Immature Gran % (Auto) Neut % (Auto) Lymph % (Auto) [place] % (Auto) Eos % (Auto) Baso % (Auto) Lymph # (Auto) [place] # (Auto) Eos # (Auto) Baso # (Auto) Abs Immat Gran (auto) Absolute Neuts (auto) Absolute Nucleated RBC Nucleated RBC % Sodium Potassium Chloride Carbon Dioxide Anion Gap BUN Creatinine Estim Creat Clear Calc Estimated GFR Glucose POC Capillary Glucose 175 H Calcium Magnesium Total Bilirubin AST ALT Alkaline Phosphatase Total Protein Albumin Pulse Oximetry SpO2 results: 98% on room air Attestation: I personally reviewed and interpreted this pulse oximetry as follows: Interpretation: no need for supplemental oxygenation at this time Quality VTE Prophylaxis VTE prophylaxis: pharmacologic ordered (Discontinued as patient ambulating often) If No VTE Prophylaxis Answer both mechanical and pharmacologic: Reason no mechanical VTE proph: low risk/not indicated Reason no pharmacologic proph: low risk/not indicated
[2024-08-23 11:56] LABS: Glucose Point of Care 70 mg/dl (65-105)
[2024-08-23 12:13] VITALS: BMI 21.3
[2024-08-23 14:00] VITALS: BP 147/55; PULSE 81; RESP 18; TEMP 36.2; O2SAT 100
[2024-08-23 18:00] LABS: Glucose Point of Care 114 mg/dl (65-105)
[2024-08-23 20:41] LABS: Glucose Point of Care 134 mg/dl (65-105)
[2024-08-23] MEDS: ROSUVASTATIN 20 MG TABLET PO (20:50)
[2024-08-23] MEDS: AMOXICILLIN/CLAVULANATE K 875-125 MG TAB 1 TABLET PO (20:50)
[2024-08-23] MEDS: MONTELUKAST SODIUM 10 MG TABLET PO (21:26)
[2024-08-23 22:00] VITALS: BP 167/64; PULSE 84; RESP 20; TEMP 37.3; O2SAT 100
[2024-08-23] MEDS: ACETAMINOPHEN 325 MG TABLET 650 MG PO (23:00)
[2024-08-24 00:42] VITALS: BP 151/72; PULSE 70; RESP 18; TEMP 36.9; O2SAT 100
[2024-08-24 06:00] VITALS: BP 153/74; PULSE 80; RESP 18; TEMP 36.7; O2SAT 100
[2024-08-24 06:05] LABS: Basophils Absolute Auto 0.1 K/mm3 (0.0-0.1); Basophils Percent Auto 0.8 % (0.2-1.2); Eosinophils Absolute Auto 0.2 K/mm3 (0-0.3); Eosinophils Percent Auto 2.2 % (0-4.4); Hematocrit 26.6 % (37.0-47.0); Hemoglobin 8.5 g/dL (12.0-15.0); Immature Granulocyte Absolute 0.05 K/mm3 (0.00-0.031); Immature Granulocyte Percent A 0.6 % (0-0.5); Lymphocytes Absolute Auto 0.76 K/mm3 (0.9-3.2); Lymphocytes Percent Auto 9.6 % (18.3-44.2); Mean Corpuscular Hemoglobin 25.3 pg (26-34); Mean Corpuscular Volume 79.2 fl (80-100); Mean Platelet Volume 8.6 fl (7.4-10.4); Monocytes Absolute Auto 0.7 K/mm3 (0.1-0.6); Monocytes Percent Auto 8.4 % (2.6-8.5); Neutrophils Absolute Auto 6.2 K/mm3 (1.3-6.7); Neutrophils Percent Auto 78.4 % (45.5-73.1); Platelet Count Result 452 k/mm3 (150-375); Red Blood Count 3.36 M/mm3 (4.2-5.4); Red Cell Distribution Width 17.9 % (11.5-14.5); White Blood Count 7.9 K/mm3 (4.5-10.0)
[2024-08-24 06:20] LABS: Alanine Aminotransferase 17 U/L (6-35); Albumin Level 3.7 g/dL (3.5-5.1); Alkaline Phosphatase 68 U/L (38-126); Anion Gap 5 mmol/L (4-12); Aspartate Amino Transferase 31 U/L (14-36); Bilirubin,Total 0.4 mg/dL (0.2-1.3); Blood Urea Nitrogen 4 mg/dL (7-17); Calcium 8.9 mg/dL (8.4-10.2); Carbon Dioxide 25 mmol/L (22-30); Chloride 104 mmol/L (98-107); Estimated CRCL calculation 57 ml/min; Estimated Glomerular Filt Rate > 60; Glucose 92 mg/dL (65-110); Magnesium 1.7 mg/dL (1.6-2.3); Potassium 3.3 mmol/L (3.4-5.0); Sodium 134 mmol/L (137-145)
[2024-08-24] MEDS: oxyCODONE/ACETAMINOPHEN (*CRX) 5-325 MG TABLET 1 TABLET PO (06:42)
[2024-08-24 08:29] VITALS: BP 132/68; PULSE 78; RESP 16; O2SAT 99
[2024-08-24] MEDS: MULTIVITAMINS /C LUTEIN (CENTRUM SILVER) TABLET *BKC 1 TAB PO (08:30)
[2024-08-24] MEDS: FOLIC ACID 1 MG TABLET PO (08:30)
[2024-08-24] MEDS: TIMOLOL MALEATE 0.5% OP SOLN 5 ML BOTTLE 1 DROP LEFT EYE (08:30)
[2024-08-24] MEDS: AMOXICILLIN/CLAVULANATE K 875-125 MG TAB 1 TABLET PO (08:30)
[2024-08-24] MEDS: lisinopriL 10 MG TABLET PO (08:30)
[2024-08-24] MEDS: LORATADINE 10 MG TABLET PO (08:30)
[2024-08-24] MEDS: PANTOPRAZOLE 40 MG TABLET PO (08:30)
[2024-08-24] MEDS: BRIMONIDINE TARTRATE 0.2% OP SOLN 5 ML BTL 1 DROP LEFT EYE (08:30)
[2024-08-24] MEDS: UPADACITINIB 15 MG 15 EACH PO (08:30)
--- NOTE | 2024-08-24 09:21 | P.PNIM_ITS ---
Subjective Date/time seen: 08/24/24 09:21 Objective Data Vital Signs Vital Signs: Vital Signs - 24 hr 08/23/24 14:00 08/23/24 22:00 08/23/24 20:00 Temperature 97.1 F L 99.1 F Pulse Rate 81 84 Respiratory Rate 18 20 Blood Pressure 147/55 H 167/64 H Pulse Oximetry 100 100 Oxygen Delivery Room Air 08/24/24 00:42 08/24/24 06:00 08/24/24 08:29 Temperature 98.5 F 98.1 F Pulse Rate 70 80 78 Respiratory Rate 18 18 16 Blood Pressure 151/72 H 153/74 H 132/68 Pulse Oximetry 100 100 99 Oxygen Delivery Intake/Output Intake/Output: Intake & Output 08/21/24 08/22/24 08/23/24 08/24/24 23:59 23:59 23:59 23:59 Intake Total 1133.3 1483.0 3500.7 500 Output Total 2800 2300 Balance 1133.3 -1317.0 1200.7 500 Meds/Results Medications: Active Medications Generic Name Dose Route Start Last Admin Trade Name Freq PRN Reason Stop Dose Admin Acetaminophen 650 mg 08/22/24 16:04 08/23/24 23:00 Acetaminophen 325 Mg Tablet PO 650 mg Q6H PRN Administration Mild Pain (1-3) or Fever Amoxicillin/Clavulanate Potassium 1 tablet 08/23/24 21:00 08/24/24 08:30 Amoxicillin/Clavulanate K 875-125 Mg Tab PO 1 tablet Q12HR SEVERO Administration Brimonidine Tartrate 1 drop 08/22/24 09:00 08/24/24 08:30 Brimonidine Tartrate 0.2% Op Soln 5 Ml Btl LEFT EYE 1 drop Q12HR SEVERO Administration Dextrose 12.5 gm 08/23/24 07:44 Dextrose 50% 25 Gm/50 Ml Syringe IV PUSH PRN PRN Hypoglycemia Protocol Folic Acid 1 mg 08/24/24 09:00 08/24/24 08:30 Folic Acid 1 Mg Tablet PO 1 mg DAILY SEVERO Administration Glucagon 1 mg 08/23/24 07:44 Glucagon For Inj 1 Mg Vial IM PRN PRN Hypoglycemia Protocol Glucose 15 gm 08/23/24 07:44 Glucose Oral Gel 15 Gm Of Glucse In 37.5 Gm Tube PO PRN PRN Hypoglycemia Protocol Dextrose/Lactated Ringer's 1,000 mls @ 75 mls/hr 08/23/24 07:45 08/23/24 22:51 Dextrose 5%/Lactated Ringers IV CONT 75 mls/hr .[id number] SEVERO Administration Dextrose 1,000 mls @ 100 mls/hr 08/23/24 07:44 Dextrose 5% 1,000 Ml IVPB PRN PRN Hypoglycemia Protocol Lisinopril 10 mg 08/24/24 09:00 08/24/24 08:30 Lisinopril 10 Mg Tablet PO 10 mg QAM SEVERO Administration Loratadine 10 mg 08/23/24 09:00 08/24/24 08:30 Loratadine 10 Mg Tablet PO 09/22/24 08:59 10 mg DAILY SEVERO Administration Methotrexate 10 mg 08/25/24 09:00 Methotrexate 2.5 Mg Tab (*Chemo) PO WEEKLY SEVERO Metoclopramide HCl 5 mg 08/23/24 10:27 Metoclopramide Hcl 5 Mg Tablet PO Q6H PRN nausea and vomiting Montelukast Sodium 10 mg 08/23/24 21:00 08/23/24 21:26 Montelukast Sodium 10 Mg Tablet PO 10 mg HS SEVERO Administration Multivitamins/Minerals 1 tab 08/24/24 09:00 08/24/24 08:30 Multivitamins /C Lutein (Centrum Silver) Tablet *Bkc PO 1 tab QAM SEVERO Administration Upadacitinib [Rinvoq 15 mg 08/22/24 11:00 08/24/24 08:30 ] 15 Mg Tablet PO 09/21/24 10:59 15 mg Extended Release 24 DAILY SEVERO Administration Hr Ondansetron HCl 4 mg 08/21/24 23:22 Ondansetron Inj 4 Mg/2 Ml Vial IV PUSH Q6H PRN Nausea And Vomiting Oxycodone/Acetaminophen 1 tablet 08/22/24 16:05 08/24/24 06:42 Oxycodone/Acetaminophen (*Crx) 5-325 Mg Tablet PO 1 tablet Q6H PRN Administration pain 4-10 Pantoprazole Sodium 40 mg 08/24/24 09:00 08/24/24 08:30 Pantoprazole 40 Mg Tablet PO 40 mg QAM SEVERO Administration Rosuvastatin Calcium 20 mg 08/23/24 21:00 08/23/24 20:50 Rosuvastatin 20 Mg Tablet PO 20 mg HS SEVERO Administration Timolol Maleate 1 drop 08/22/24 09:00 08/24/24 08:30 Timolol Maleate 0.5% Op Soln 5 Ml Bottle LEFT EYE 1 drop Q12HR SEVERO Administration Labs Labs: Laboratory Results - last 24 hr 08/23/24 08/23/24 08/23/24 11:53 17:57 20:22 WBC RBC Hgb Hct MCV MCH MCHC RDW Plt Count MPV Immature Gran % (Auto) Neut % (Auto) Lymph % (Auto) [place] % (Auto) Eos % (Auto) Baso % (Auto) Lymph # (Auto) [place] # (Auto) Eos # (Auto) Baso # (Auto) Abs Immat Gran (auto) Absolute Neuts (auto) Absolute Nucleated RBC Nucleated RBC % Sodium Potassium Chloride Carbon Dioxide Anion Gap BUN Creatinine Estim Creat Clear Calc Estimated GFR Glucose POC Capillary Glucose 70 114 H 134 H Calcium Magnesium Total Bilirubin AST ALT Alkaline Phosphatase Total Protein Albumin 08/24/24 05:50 WBC 7.9 RBC 3.36 L Hgb 8.5 L Hct 26.6 L MCV 79.2 L MCH 25.3 L MCHC 32.0 RDW 17.9 H Plt Count 452 H MPV 8.6 Immature Gran % (Auto) 0.6 H Neut % (Auto) 78.4 H Lymph % (Auto) 9.6 L [place] % (Auto) 8.4 Eos % (Auto) 2.2 Baso % (Auto) 0.8 Lymph # (Auto) 0.76 L [place] # (Auto) 0.7 H Eos # (Auto) 0.2 Baso # (Auto) 0.1 Abs Immat Gran (auto) 0.05 H Absolute Neuts (auto) 6.2 Absolute Nucleated RBC 0.000 Nucleated RBC % 0.0 Sodium 134 L Potassium 3.3 L Chloride 104 Carbon Dioxide 25 Anion Gap 5 BUN 4 L D Creatinine 0.60 L Estim Creat Clear Calc 57 Estimated GFR > 60 Glucose 92 POC Capillary Glucose Calcium 8.9 Magnesium 1.7 Total Bilirubin 0.4 AST 31 ALT 17 Alkaline Phosphatase 68 Total Protein 6.0 L Albumin 3.7
--- NOTE | 2024-08-24 10:56 | PM.DS ---
DS: Admitting Diagnosis Discharge Date 08/24/24 Admitting Diagnosis Colitis Acute hyponatremia Acute dehydration Ileus Psoriatic arthritis DS: Summary Hospital Course Reason for hospitalization: Colitis Acute hyponatremia Acute dehydration Ileus Psoriatic arthritis Hospital Course: This is a 69-year-old female who presented to the hospital on 08/21/2024 with complaints of abdominal pain, nausea, vomiting. Workup in the hospital included a CT of the abdomen and pelvis which showed diffuse mild colonic wall thickening with mild associated pericolonic inflammatory stranding suspicious for colitis which could be infectious or inflammatory, fluid of within a few mildly dilated loops of small bowel which gradually and intermediately taper distally without a discrete transition point to suggest obstruction would favor more and ileus, likely reactive small amount of ascites in the pelvis. Initial labs showed a white blood cell count of 7.0, hemoglobin 9.4, platelet count 510, sodium 127, potassium 3.1, chloride 92. A UA was obtained and showed 2+ urine blood, 11-20 urine RBC, otherwise normal. Stool culture was obtained on 08/19/2024 which was negative. Patient was started on Zosyn and then transitioned over to Augmentin. She was advanced slowly on to a regular diet. She is tolerating this well. She had a bowel movement this morning which was normal. She states she is feeling much better and would like to go home. Vital signs are stable, she is afebrile, she is currently on room air. Her labs are unremarkable today. She is stable for discharge at this time. She will need to finish up her course of Augmentin and then follow up with her primary care in 1 week. She was instructed not to take her methotrexate until after her Augmentin is finished in which she understands. Final diagnosis: Colitis with, acute hyponatremia, dehydration, ileus Status at Discharge Cognitive/behavioral status at discharge: Alert oriented x4 Functional status at discharge: independent ambulation Overall status at discharge: patient is progressing back to baseline Time Spent with Patient Time attestation: Total time spent providing and/or coordinating discharge services: Time spent: Greater than 30 minutes Exam Narrative: General: In no acute distress, well nourished Head: atraumatic, no encephalopathy Eyes: PERRLA, sclera clear ENT: moist mucous membranes, nasal passages clear Neck: supple, no JVD, no adenopathy, trachea midline Cardiac: Normal S1 and S2. RRR,No murmur, gallops or friction rubs, peripheral pulses intact. Respiratory: Lungs clear to auscultation, no adventitious lung sounds, currently on room air Gastrointestinal: soft, non-distended, non-tender, normoactive bowel sounds. : voiding without difficulty. Extremities: moves all extremities well, no edema, good ROM, strength 5/5 Skin: clean, dry, intact. No wounds or lesions. Neuro: Alert and oriented x4, cranial nerves intact, no neuro deficits. Psych: normal mood, normal affect, interactive DS: Data Data Completed and Pending Completed studies during hospitalization: Abdomen/pelvis CT Pending studies at discharge: None Labs on day of discharge: Labs from last 24 hours 08/24/24 08/23/24 08/23/24 05:50 20:22 17:57 WBC 7.9 RBC 3.36 L Hgb 8.5 L Hct 26.6 L MCV 79.2 L MCH 25.3 L MCHC 32.0 RDW 17.9 H Plt Count 452 H MPV 8.6 Immature Gran % (Auto) 0.6 H Neut % (Auto) 78.4 H Lymph % (Auto) 9.6 L [place] % (Auto) 8.4 Eos % (Auto) 2.2 Baso % (Auto) 0.8 Lymph # (Auto) 0.76 L [place] # (Auto) 0.7 H Eos # (Auto) 0.2 Baso # (Auto) 0.1 Abs Immat Gran (auto) 0.05 H Absolute Neuts (auto) 6.2 Absolute Nucleated RBC 0.000 Nucleated RBC % 0.0 Sodium 134 L Potassium 3.3 L Chloride 104 Carbon Dioxide 25 Anion Gap 5 BUN 4 L D Creatinine 0.60 L Estim Creat Clear Calc 57 Estimated GFR > 60 Glucose 92 POC Capillary Glucose 134 H 114 H Calcium 8.9 Magnesium 1.7 Total Bilirubin 0.4 AST 31 ALT 17 Alkaline Phosphatase 68 Total Protein 6.0 L Albumin 3.7 08/23/24 11:53 WBC RBC Hgb Hct MCV MCH MCHC RDW Plt Count MPV Immature Gran % (Auto) Neut % (Auto) Lymph % (Auto) [place] % (Auto) Eos % (Auto) Baso % (Auto) Lymph # (Auto) [place] # (Auto) Eos # (Auto) Baso # (Auto) Abs Immat Gran (auto) Absolute Neuts (auto) Absolute Nucleated RBC Nucleated RBC % Sodium Potassium Chloride Carbon Dioxide Anion Gap BUN Creatinine Estim Creat Clear Calc Estimated GFR Glucose POC Capillary Glucose 70 Calcium Magnesium Total Bilirubin AST ALT Alkaline Phosphatase Total Protein Albumin Procedures/Treatments: None Discharge Plan Discharge Attending physician on discharge: Lazaro Leger Discharging Clinician: Kelsea Armstrong Anticipated Discharge Date/Time: 08/24/24 09:38 Patient Disposition: Home, Self-Care Activity: as tolerated Diet: as tolerated Discharge Instructions: Finish all your antibiotic as directed Follow up with primary care doctor in 1 week Continue to advance diet as tolerated Hold Methotrexate until you are finished taking your antibiotics Patient Instructions: Antibiotic Form, Amoxicillin/Clavulanate Potassium (By mouth), Colitis (ED) Patient Language: Dominican Stand Alone Forms: General Discharge Information Follow-up/Referrals: Branden,MD Aniceto [Primary Care Provider] - 1 Week Discharge Medications: New oxycodone-acetaminophen 5-325 mg Tablet 1 tablet PO Q6H PRN (Reason: pain 4-10) Qty: 20 0RF amoxicillin-pot clavulanate 875-125 mg tablet 1 tablet PO Q12H Qty: 10 0RF Continued folic acid 1 mg tablet 1 mg PO DAILY lisinopril-hydrochlorothiazide 10-12.5 mg tablet 1 tablet PO QAM montelukast 10 mg tablet 10 mg PO DAILY rosuvastatin 20 mg tablet 20 mg PO DAILY cetirizine 10 mg tablet,disintegrating 10 mg PO DAILY timolol maleate 0.5 % drops 1 drp LEFT EYE BID brimonidine 0.2 % drops 1 drp LEFT EYE BID [id number] Tablet 1 tablet PO DAILY psyllium husk [Metamucil] 0.4 gram Capsule 0.4 g PO DAILY ibuprofen [Advil] 200 mg Tablet 400 mg PO Q6H PRN (Reason: Pain) clobetasol 0.05 % Ointment 1 applic TOPICAL DAILY PRN (Reason: other) Rinvoq 15 mg Tablet Extended Release 24 Hr 15 mg PO DAILY metoclopramide HCl [Reglan] 5 mg tablet 5 mg PO Q6H PRN (Reason: nausea and vomiting) Qty: 20 0RF prednisone 2.5 mg tablet 2.5 mg PO DIRECTED PRN (Reason: other) Patient Comments: arthritis flare omeprazole 20 mg capsule,delayed release(DR/EC) 20 mg PO DIRECTED PRN (Reason: other) Patient Comments: arthritis flare Held methotrexate sodium 2.5 mg tablet 10 mg PO WEEKLY Hold Instructions: Resume on 09/01/24. Hold until finished with antibiotics Rx Instructions: SUNDAYS Date of admission: 08/23/24 13:10 Primary Care Provider: FredyAniceto Admitting Provider: Mustapha Vela Attending physician on admission: Kelsea Armstrong Condition: Improved
== END 2024-08-24 12:05 | disposition home or self-care (01) | DRG 392 ==
LOC: ANHED 18:51 → ANH3MEDSUR 19:53 → ANH2MED 20:16
PROVIDERS: Emergency Medicine; Nurse Practitioner; Admitting Provider Internal Medicine; Emergency Provider Physician Assistant; PCP Internal Medicine; Visit Provider Nurse Practitioner Acute Care
DX: K52.9 Noninfective gastroenteritis and colitis, unspecified (principal); K56.7 Ileus, unspecified; E87.1 Hypo-osmolality and hyponatremia; E86.0 Dehydration; I10 Essential (primary) hypertension; L40.50 Arthropathic psoriasis, unspecified; H40.9 Unspecified glaucoma; Z85.41 Personal history of malignant neoplasm of cervix uteri; Z87.891 Personal history of nicotine dependence
CPT/HCPCS: 36415; 80048; 80053; 81001; 82948; 83690; 83735; 85025; 96361; 96365; 96372; 96375; 96376; 99285; A9270; G0378; J1650; J2270; J2405; J2470; J2543; J3480; J7030; J7040; J7121

== ENCOUNTER 2024-09-20 07:49 | Outpatient (CLI) | payer MEDICARE, SELFPAY ==
--- NOTE | ~2024-09-20 | XR_ITS ---
EXAMINATION: XR small bowel follow through DATE: 09/20/2024 10:30 INDICATION: Enteritis. Intermittent small bowel obstruction. TECHNIQUE: Oral contrast was administered, and a time course of radiographs of the abdomen was obtain ed. Fluoroscopy of the small bowel was not performed. Fluoroscopy exposure time was 0 minutes. The to ludmila number of images was 7. COMPARISON: CT abdomen and pelvis 08/21/2024 FINDINGS: There are no dilated loops of bowel. The terminal ileum is normal. Transit time from the stomach to p roximal colon was approximately 1 hour. IMPRESSION: 1. Normal small bowel series. Reviewed, dictated and finalized at location A. [employer]
== END 2024-09-20 07:50 | disposition home or self-care (01) ==
PROVIDERS: PCP Internal Medicine; Visit Provider Nurse Practitioner
DX: K52.9 Noninfective gastroenteritis and colitis, unspecified (principal); Z85.41 Personal history of malignant neoplasm of cervix uteri; Z87.19 Personal history of other diseases of the digestive system
CPT/HCPCS: 74250

== ENCOUNTER 2025-02-04 08:38 | Outpatient (CLI) | payer MEDICARE, SELFPAY ==
--- NOTE | ~2025-02-04 | DEXA_ITS ---
Bone Density Report Name: BRIAN PELLETIER Age: 69 Sex: Female Ethnicity: White Date of : 1955 Indication: osteopenia; history of glucocorticoids; cancer; hysterectomy; Referring Provider: Venancio Trinidad Study: Bone densitometry was performed. Exam Date: February 04, 2025 Accession number: [id number] Bone Density: Region BMD T-score Z-score Classification AP Spine(L1-L4) 0.765 -2.6 -0.5 Osteoporosis Femoral Neck (Left) 0.558 -2.6 -0.9 Osteoporosis Total Hip (Left) 0.660 -2.3 -0.8 Osteopenia Femoral Neck (Right) 0.564 -2.6 -0.8 Osteoporosis Total Hip (Right) 0.634 -2.5 -1.1 Osteoporosis Total Hip Mean 0.647 -2.4 -1.0 Osteopenia World Health Organization criteria for BMD impression classify patients as: Normal (T-score at or above -1.0), Osteopenia (T-score between -1.0 and -2.5), or Osteoporosis (T-score at or below -2.5). 10-year Fracture Risk: FRAX not reported because: Some T-score for Spine Total or Hip Total or Femoral Neck at or below -2.5 Previous Exams: -- Region Exam Age BMD T-score BMD Change BMD Change Date g/cm2 vs Baseline vs Previous -- AP Spine (L1-L4) 02/04/2025 69 0.765 -2.6 -16.3%* -16.3%* 05/24/2016 60 0.913 -1.2 Total Hip(Left) 02/04/2025 69 0.660 -2.3 -11.1%* -11.1%* 05/24/2016 60 0.742 -1.6 Total Hip(Right) 02/04/2025 69 0.634 -2.5 -13.8%* -13.8%* 05/24/2016 60 0.735 -1.7 -- *Denotes significance at 95% confidence level, LSC for AP Spine = 0.022 g/cm2, LSC for Total Hip = 0.027 g/cm2 Clinical Information Provided by Patient: Has taken Glucocorticoids Has used the following medications: MTV, Hx of control Has the following medical conditions: Cancer, Hysterectomy, Cervical ca- 2022 with radiation and complete hysterectomy Patient maximum height was 62.0 Menopause Age: 54 Drinks caffeinated beverages Onset of menses at age 15 Number of children 0 Impression: The patient has osteoporosis, based on the Total Spine T-score. The patient has risk factors, including: history of glucocorticoid therapy. The BMD for the AP Spine (L1-L4) decreased, changing by -16.3% since the last DXA exam. The BMD for the Total Hip(Left) decreased, changing by -11.1% since the last DXA exam. The BMD for the Total Hip(Right) decreased, changing by -13.8% since the last DXA exam. Discussion: INCREASED RISK OF FRACTURE. BONE DENSITY IS UNDESIRABLY LOW AT ONE OR MORE SKELETAL SITES, CONSISTENT WITH POSTMENOPAUSAL OSTEOPOROSIS. This patient's lowest T-score meets the World Health Organization's (WHO) criteria for osteoporosis at one or more sites (T-score -2.5 or below). In untreated patients, the risk of osteoporotic fracture increases approximately two-fold for each 1.0 SD decrease in T-score. Low bone density is not the only risk factor for fracture; also consider factors such as patient's age, frailty or poor health, risk of falling, risk of injury, previous osteoporotic fracture, family history of osteoporosis, cigarette smoking, low body weight, etc. Not everyone with low bone mineral density has osteoporosis; osteomalacia and other metabolic bone disorders should also be considered. Patients who have osteoporosis should be evaluated for specific diseases and conditions (secondary causes) that may cause or contribute to bone loss. The [place] Association of Clinical Endocrinologists (AACE) and National Osteoporosis Foundation (NOF) recommend pharmacologic intervention for all postmenopausal women whose T-score is in this range. The patient should follow a healthful lifestyle (good nutrition with adequate calcium and vitamin D, and appropriate weight-bearing exercise). Follow-Up: Consider a repeat BMD and Vertebral Fracture Assessment (VFA) exam in 2 years or sooner if medically necessary, to reassess this patient's status. Reported by: JAMIL on 02/05/2025 9:00:00 AM. Reviewed, dictated and finalized at location A.
== END 2025-02-04 08:39 | disposition home or self-care (01) ==
LOC: MICIMG 08:40
PROVIDERS: Visit Provider Obstetrics & Gynecology
DX: Z78.0 Asymptomatic menopausal state (principal); M85.852 Other specified disorders of bone density and structure, left thigh; M85.851 Other specified disorders of bone density and structure, right thigh; M81.0 Age-related osteoporosis without current pathological fracture
CPT/HCPCS: 77080

== ENCOUNTER 2025-06-12 05:11 | Outpatient (CLI) | payer MEDICARE, SELFPAY ==
--- OUTSIDE RECORDS SUMMARY | 2010-03-25 08:00 | XMS_ITS | Continuity of Care Document ---
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, [address] [facility] [address], [place], [place], [address], [place] tel:[phone] SEC Alan Castellanos No Information 0 Alexandr Mina. [address] [facility], [address], [place], [place], [address], [place]. tel:[phone] Referring Provider: Leopoldo Adame [address] [place] [address] [employer] [address], [place], [address] . tel:[phone] [facility], [address] [place] [address] [address], [place], [place], [address], [place] tel:[phone] SEC Alan Rodríguezbergbarbara No Information Ant-1 0-201 0 [facility] . [address] [facility], [address], [place], [address], . tel:[phone] Referring Provider: Jesse Hassan, [address] [facility] [address], [place], [address] . tel:[phone] sulting Provider: Latha Reyes, [address] [place] [address], [address]. tel:[phone] [facility], [address] [place] [address] [address], [place], [place], [address], [place] tel:[phone] SEC Alan Castellanos No Information Mar-2 3-201 0 [facility] . [address] [facility], [address], [place], [address], . tel:[phone] Referring Provider: Jesse Hassan, [address] [facility] [address], [place], [address] . tel:[phone] sulting Provider: Latha Reyes, [address] [place] [address], [address]. tel:[phone] [facility]/outpat ient Visit, [facility], [address] [place] [address] [address], [place], [place], [address], [place] tel:[phone] SEC Alan Castellanos No Information Dec-0 7-200 9 Alexandr Mina. [address] [place] [address] [employer] [address], [address], [place], [place], [address], [place]. tel:[phone] [facility], [address] [place] [address] [address], [place], [place], [address], [place] tel:[phone] SEC [place] N Lindbergh No Information Dale-3 0-200 9 [facility] . [address], [id number], . tel:[phone] Referring Provider: Jesse Hassan, [address], [address] . tel:[phone] sulting Provider: Latha Reyes, [address] [place] [address], [address]. tel:[phone] [facility], [address] [place] [address] [address], [place], [place], [address], [place] tel:[phone] SEC Alan N Lindbergh No Information Ant-0 4-200 9 Nany Molina. [address] [place] [address], [id number], [place]. tel:[phone] [facility] [address] [facility], [address] [place] [address] [address], [place], [place], [address], [place] tel:[phone] SEC Alan N Lindbergh No Information Oct-2 7-200 8 [facility] . [address] [place] [address], [id number], [place]. tel:[phone] Referring Provider: Jesse Hassan, [address] [place] [address], [address] . tel:[phone] sulting Provider: Latha Reyes, [address] [place] [address], [address]. tel:[phone] [facility], [address] [place] [address] [address], [place], [place], [address], [place] tel:[phone] SEC Alan N Lindbergh No Information Feb-0 4-200 8 [facility] . [address] [place] [address], [id number], . tel:[phone] Referring Provider: Jesse Hassan, [address], [address] . tel:[phone] sulting Provider: Latha Reyes, [address] [place], [address]. tel:[phone] [facility], [address] [place] [address] [address], [place], [place], [address], [place] tel:[phone] SEC Alan N Lindbergh No Information Feb-0 4-200 8 Alexandr Mina. [address] [place] [address], [address], [place], [place], [address], [place]. tel:[phone] Referring Provider: Leopoldo Adame, [address] [place] [address] [address], [place], [address] . tel:[phone] [facility], [address] [place] [address] [address], [place], [place], [address], [place] tel:[phone] SEC Alan N Lindbergh No Information Dale-0 6-200 7 [facility] . [address] [place] [address], [address], [id number], [place]. tel:[phone] Referring Provider: Jesse Hassan, [address], [address] . tel:[phone] sulting Provider: Latha Reyes, [address] [place] [address], [address]. tel:[phone] [facility], [address] [place] [address] [address], [place], [place], [address], [place] tel:[phone] SEC [place] N [place] No Information Feb-0 6-200 7 [facility] . [address] [place] [address], [address], [id number], . tel:[phone] Referring Provider: Jesse Hassan, [address] [facility] [address], [address] . tel:[phone] sulting Provider: Latha Reyes, [address] [place], [address]. tel:[phone] Family History Family Member Type Diagnosis Age At Onset No Information Payers Payer name Insurance type Covered democrat ID Authoriza tion(s) No Information Social History [...]
--- NOTE | 2025-06-06 13:49 | PC.NURSE ---
Patient emailed patency capsule instructions. I went through them with her and at this time she does not have any questions.
--- OUTSIDE RECORDS SUMMARY | 2025-06-12 05:13 | XMS_ITS | Encounter Summary ---
Author Organization [facility] Address [address] [place] [address] Phone Care Team Providers Care Washcloth Folder Name Role Phone Aniceto Otero MD Primary Care Provider + [phone] Venancio Trinidad MD Unavailable [phone] Vaishnavi Tran MD Unavailable [phone] Brittany Harrison MD Unavailable [phone] Encounter Details Date Type Department Care Team (Late st Contact Info) Description 05/06/2025 Results Follow-Up [facility] Medicine Rheumatology [address] [facility] [address] 5th [place] [address] [place] [address] Micheal Toro MD [address] [place] [address] Lipid panel Social History Tobacco Use Types Packs/Day Years Used Date Smoking Tobacco: Former Cigarettes 1 35 0 12/18/1975 - 12/17/2010 Smokeless Tobacco: Never Alcohol Use Standard Drinks/Week Comments No 0 (1 standard drink = 0.6 oz pur e alcohol) AUDIT-C Answer Date Recorded Q1: How often do you have a drink containing alc ohol? Never 11/30/2023 Average Number of Drinks Not on file 024 Frequency of Binge Drinking Not on file 11/16 Personal Safety Answer Date Recorded Have you ever been in or are you currently in a harmful physical or emotional relationship or is someone making you feel afraid or unsafe? Denies 07/03/2024 Comments No Sex and Gender Information Value Date Recorded Sex Assigned at Not on file Legal 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:35 AM NURSE EPIDEMIOLOGIST Gender Identity Female 09/19/2019 7:09 AM NURSE EPIDEMIOLOGIST Sexual Orientation Not on file documented as of this encounter Plan of Treatment Scheduled Procedures Name Priority Associated Diagnoses Date/Ti me COLONOSCOPY Open Access Cancer of endocervix (HCC) Pain, abdominal Loose bowel movements documented as of this encounter Visit Diagnoses Not on filedocumented in this encounter Care Teams Washcloth Folder Relationship Specialty Start Date End Date Aniceto Otero MD PCP - General 01/25/18 Venancio Trinidad MD [address] [place] [address] Referring Physician Obstetrics and Gynecology 01/26/23 Vaishnavi Tran MD [address] [place] [address] Consulting Physician Rheumatology 01/26/23 Brittany Harrison MD [address] [place] [address] Radiation Oncologist Radiation Oncology 03/22/23 documented as of this encounter
--- OUTSIDE RECORDS SUMMARY | 2025-06-12 05:13 | XMS_ITS | Encounter Summary ---
Author Organization [facility] Address [address] [place] [address] Phone Care Team Providers Care Machinist Helper Marine Name Role Phone Aniceto Otero MD Primary Care Provider + [phone] Venancio Trinidad MD Unavailable [phone] Vaishnavi Tran MD Unavailable [phone] Brittany Harrison MD Unavailable [phone] Encounter Details Date Type Department Care Team (Late st Contact Info) Description 07/19/2024 Orders Only [facility] Scanning, Provider Social History Tobacco Use Types Packs/Day Years [...] on file Legal 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:35 AM PUBLICATION DISTRIBUTOR Gender Identity Female 09/19/2019 7:09 AM PUBLICATION DISTRIBUTOR Sexual Orientation Not on file documented as of this encounter Plan of Treatment Scheduled Procedures Name Priority Associated Diagnoses Date/Ti me COLONOSCOPY Open Access Cancer of endocervix (HCC) Pain, abdominal Loose bowel movements documented as of this encounter Procedures Procedure Name Priority Date/Time Associated Diagnosis Comments SCAN - LABS 07/19/2024 SCAN - RADIOLOGY/IMAGING 2024 documented in this encounter Results * SCAN - LABS (07/19/2024) us Provider Scanning Final Result * SCAN - RADIOLOGY/IMAGING (2024) Anatomical Region Laterality Modality Other us Provider Scanning Final Result documented in this encounter Visit Diagnoses Not on filedocumented in this encounter Care Teams Machinist Helper Marine Relationship Specialty Start Date End Date Aniceto Otero MD PCP - General 01/25/18 Venancio Trinidad MD [address] [place] [address] Referring Physician Obstetrics and Gynecology 01/26/23 Vaishnavi Tran MD [address] [facility] [address] [place] [address] Consulting Physician Rheumatology 01/26/23 Brittany Harrison MD [address] [facility] [address] [place] [address] Radiation Oncologist Radiation Oncology 03/22/23 documented as of this encounter
--- OUTSIDE RECORDS SUMMARY | 2025-06-12 05:13 | XMS_ITS ---
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 Other Current Plans [facility]: Ferric Carboxymaltose - Support* Plan Start Date:05/05/2025 Plan Provider:Krystin Ramirez Veroniac, PAC Linked Problems Iron deficiency anemia due t o sideropenic dysphagia Treatment Medications Current Day (Day 8, Cycle 1 - Planned for 05/16/2025) No medications scheduled. No medications schedul ed. Past Treatment and Therapy Plans
--- OUTSIDE RECORDS SUMMARY | 2025-06-12 05:13 | XMS_ITS | Encounter Summary ---
Author Organization [facility] Address [address] [place] [address] Phone Care Team Providers Care Road Hogger Operator Name Role Phone Aniceto Otero MD Primary Care Provider + [phone] Venancio Trinidad MD Unavailable [phone] Vaishnavi Tran MD Unavailable [phone] Brittany Harrison MD Unavailable [phone] Encounter Details Date Type Department Care Team (Late st Contact Info) Description 06/14/2024 Orders Only [facility] Scanning, Provider [...] making you feel afraid or unsafe? Denies 11/30/2023 Comments No Sex and Gender Information Value Date Recorded Sex Assigned at Not on file Legal 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:35 AM LAB SUPPORT SERVICE TECH Gender Identity Female 09/19/2019 7:09 AM LAB SUPPORT SERVICE TECH Sexual Orientation Not on file documented as of this encounter Plan of Treatment Scheduled Procedures Name Priority Associated Diagnoses Date/Ti me COLONOSCOPY Open Access Cancer of endocervix (HCC) Pain, abdominal Loose bowel movements documented as of this encounter Procedures Procedure Name Priority Date/Time Associated Diagnosis Comments SCAN - LABS 06/14/2024 documented in this encounter Results * SCAN - LABS (06/14/2024) us Provider Scanning Final Result documented in this encounter Visit Diagnoses Not on filedocumented in this encounter Care Teams Road Hogger Operator Relationship Specialty Start Date End Date Aniceto Otero MD PCP - General 01/25/18 Venancio Trinidad MD [address] [place] [address] Referring Physician Obstetrics and Gynecology 01/26/23 Vaishnavi Tran MD [address] [facility] [address] [place] [address] Consulting Physician Rheumatology 01/26/23 Brittany Harrison MD [address] [facility] [address] [place] [address] Radiation Oncologist Radiation Oncology 03/22/23 documented as of this encounter
--- OUTSIDE RECORDS SUMMARY | 2025-06-12 05:13 | XMS_ITS | Encounter Summary ---
Author Organization [facility] Address [address] [place] [address] Phone Care Team Providers Care Inspector Balance Wheel Motion Name Role Phone Aniceto Otero MD Primary Care Provider + [phone] Venancio Trinidad MD Unavailable [phone] Vaishnavi Tran MD Unavailable [phone] Brittany Harrison MD Unavailable [phone] Encounter Details Date Type Department Care Team (Late st Contact Info) Description 03/25/2021 Orders Only [facility] Scanning, Provider Social History Tobacco Use Types Packs/Day Years Used Date Smoking Tobacco: Former Smokeless Tobacco: Never Alcohol Use Standard Drinks/Week Comments No 0 (1 standard drink = 0.6 oz pur e alcohol) Comments Unknown Sex and Gender Information Value Date Recorded Sex Assigned at Not on file Legal 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:35 AM STATIONS SUPERINTENDENT Gender Identity Female 09/19/2019 7:09 AM STATIONS SUPERINTENDENT Sexual Orientation Not on file documented as of this encounter Plan of Treatment Scheduled Procedures Name Priority Associated Diagnoses Date/Ti me COLONOSCOPY Open Access Cancer of endocervix (HCC) Pain, abdominal Loose bowel movements documented as of this encounter Procedures Procedure Name Priority Date/Time Associated Diagnosis Comments SCAN - LABS 03/25/2021 documented in this encounter Results * SCAN - LABS (03/25/2021) us Provider Scanning Final Result documented in this encounter Visit Diagnoses Not on filedocumented in this encounter Care Teams Inspector Balance Wheel Motion Relationship Specialty Start Date End Date Aniceto Otero MD PCP - General 01/25/18 Venancio Trinidad MD [address] [place] [address] Referring Physician Obstetrics and Gynecology 01/26/23 Vaishnavi Tran MD [address] [place] [address] Consulting Physician Rheumatology 01/26/23 Brittany Harrison MD [address] [place] [address] Radiation Oncologist Radiation Oncology 03/22/23 documented as of this encounter
--- OUTSIDE RECORDS SUMMARY | 2025-06-12 05:13 | XMS_ITS | Encounter Summary ---
Author Organization [facility] Address [address] [place] [address] Phone Care Team Providers Care Peer Counselor Name Role Phone Aniceto Otero MD Primary Care Provider + [phone] Venancio Trinidad MD Unavailable [phone] Vaishnavi Tran MD Unavailable [phone] Brittany Harrison MD Unavailable [phone] Encounter Details Date Type Department Care Team (Late st Contact Info) Description 02/20/2023 Orders Only [facility] Scanning, Provider Social History Tobacco Use Types Packs/Day Years Used Date Smoking Tobacco: Former Cigarettes 1 35 0 12/18/1975 - 12/17/2010 Smokeless Tobacco: Never Alcohol Use Standard Drinks/Week Comments No 0 (1 standard drink = 0.6 oz pur e alcohol) AUDIT-C Answer Date Recorded Q1: How often do you have a drink containing alcohol? Never 12/27/2022 Q2: How many drinks containi ng alcohol do you have on a typical day when you are drinking? Patient does not drink Q3: How often do you have si x or more drinks on one occasion? Never 12/27/2022 Comments No Sex and Gender Information Value Date Recorded Sex Assigned at Not on file Legal 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:35 AM RESTAURANT MAINTENANCE TECHNICIAN Gender Identity Female 09/19/2019 7:09 AM RESTAURANT MAINTENANCE TECHNICIAN Sexual Orientation Not on file documented as of this encounter Plan of Treatment Scheduled Procedures Name Priority Associated Diagnoses Date/Ti me COLONOSCOPY Open Access Cancer of endocervix (HCC) Pain, abdominal Loose bowel movements documented as of this encounter Procedures Procedure Name Priority Date/Time Associated Diagnosis Comments SCAN - LABS 02/20/2023 documented in this encounter Results * SCAN - LABS (02/20/2023) us Provider Scanning Final Result documented in this encounter Visit Diagnoses Not on filedocumented in this encounter Care Teams Peer Counselor Relationship Specialty Start Date End Date Aniceto Otero MD PCP - General 01/25/18 Venancio Trinidad MD [address] [place] [address] Referring Physician Obstetrics and Gynecology 01/26/23 Vaishnavi Tran MD [address] [facility] [address] [place] [address] Consulting Physician Rheumatology 01/26/23 Brittany Harrison MD [address] [facility] [address] [place] [address] Radiation Oncologist Radiation Oncology 03/22/23 documented as of this encounter
--- OUTSIDE RECORDS SUMMARY | 2025-06-12 05:13 | XMS_ITS | Encounter Summary ---
Author Organization [facility] Address [address] [place] [address] Phone Care Team Providers Care Nut Tapper Name Role Phone Aniceto Otero MD Primary Care Provider + [phone] Venancio Trinidad MD Unavailable [phone] Vaishnavi Tran MD Unavailable [phone] Brittany Harrison MD Unavailable [phone] Encounter Details Date Type Department Care Team (Late st Contact Info) Description 03/12/2024 Orders Only [facility] Scanning, Provider [...] on file Legal 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:35 AM T RAIL TURNER Gender Identity Female 09/19/2019 7:09 AM T RAIL TURNER Sexual Orientation Not on file documented as of this encounter Plan of Treatment Scheduled Procedures Name Priority Associated Diagnoses Date/Ti me COLONOSCOPY Open Access Cancer of endocervix (HCC) Pain, abdominal Loose bowel movements documented as of this encounter Procedures Procedure Name Priority Date/Time Associated Diagnosis Comments SCAN - LABS 03/12/2024 documented in this encounter Results * SCAN - LABS (03/12/2024) us Provider Scanning Edited Result - Final documented in this encounter Visit Diagnoses Not on filedocumented in this encounter Care Teams Nut Tapper Relationship Specialty Start Date End Date Aniceto Otero MD PCP - General 01/25/18 Venancio Trinidad MD [address] [place] [address] Referring Physician Obstetrics and Gynecology 01/26/23 Vaishnavi Tran MD [address] [place] [address] Consulting Physician Rheumatology 01/26/23 Brittany Harrison MD [address] [place] [address] Radiation Oncologist Radiation Oncology 03/22/23 documented as of this encounter
--- OUTSIDE RECORDS SUMMARY | 2025-06-12 05:13 | XMS_ITS | Encounter Summary ---
Author Organization [facility] Address [address] [place] [address] Phone Care Team Providers Care Automobile Travel Club Counselor Name Role Phone Aniceto Otero MD Primary Care Provider + [phone] Venancio Trinidad MD Unavailable [phone] Vaishnavi Tran MD Unavailable [phone] Brittany Harrison MD Unavailable [phone] Encounter Details Date Type Department Care Team (Late st Contact Info) Description 04/01/2024 Orders Only [facility] Scanning, Provider [...] on file Legal 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:35 AM EMPLOYEE REPRESENTATIVE Gender Identity Female 09/19/2019 7:09 AM EMPLOYEE REPRESENTATIVE Sexual Orientation Not on file documented as of this encounter Plan of Treatment Scheduled Procedures Name Priority Associated Diagnoses Date/Ti me COLONOSCOPY Open Access Cancer of endocervix (HCC) Pain, abdominal Loose bowel movements documented as of this encounter Procedures Procedure Name Priority Date/Time Associated Diagnosis Comments SCAN - LABS 04/01/2024 documented in this encounter Results * SCAN - LABS (04/01/2024) us Provider Scanning Final Result documented in this encounter Visit Diagnoses Not on filedocumented in this encounter Care Teams Automobile Travel Club Counselor Relationship Specialty Start Date End Date Aniceto Otero MD PCP - General 01/25/18 Venancio Trinidad MD [address] [place] [address] Referring Physician Obstetrics and Gynecology 01/26/23 Vaishnavi Tran MD [address] [facility] [address] [place] [address] Consulting Physician Rheumatology 01/26/23 Brittany Harrison MD [address] [facility] [address] [place] [address] Radiation Oncologist Radiation Oncology 03/22/23 documented as of this encounter
--- OUTSIDE RECORDS SUMMARY | 2025-06-12 05:13 | XMS_ITS | Encounter Summary ---
Author Organization [facility] Address [address] [place] [address] Phone Care Team Providers Care Relay Telegrapher Name Role Phone Aniceto Otero MD Primary Care Provider + [phone] Venancio Trinidad MD Unavailable [phone] Vaishnavi Tran MD Unavailable [phone] Brittany Harrison MD Unavailable [phone] Encounter Details Date Type Department Care Team (Late st Contact Info) Description 03/25/2024 Orders Only [facility] Scanning, Provider [...] on file Legal 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:35 AM TELEPHONE ADVICE NURSE Gender Identity Female 09/19/2019 7:09 AM TELEPHONE ADVICE NURSE Sexual Orientation Not on file documented as of this encounter Plan of Treatment Scheduled Procedures Name Priority Associated Diagnoses Date/Ti me COLONOSCOPY Open Access Cancer of endocervix (HCC) Pain, abdominal Loose bowel movements documented as of this encounter Procedures Procedure Name Priority Date/Time Associated Diagnosis Comments SCAN - RADIOLOGY/IMAGING 03/25/2024 documented in this encounter Results * SCAN - RADIOLOGY/IMAGING (03/25/2024) Anatomical Region Laterality Modality Other us Provider Scanning Final Result documented in this encounter Visit Diagnoses Not on filedocumented in this encounter Care Teams Relay Telegrapher Relationship Specialty Start Date End Date Aniceto Otero MD PCP - General 01/25/18 Venancio Trinidad MD [address] [place] [address] Referring Physician Obstetrics and Gynecology 01/26/23 Vaishnavi Tran MD [address] [place] [address] Consulting Physician Rheumatology 01/26/23 Brittany Harrison MD [address] [place] [address] Radiation Oncologist Radiation Oncology 03/22/23 documented as of this encounter
--- OUTSIDE RECORDS SUMMARY | 2025-06-12 05:13 | XMS_ITS | Clinical Summary ---
Author Organization [facility] Address [address] [place] [address] Phone Care Team Providers Care Product Development Specialist Name Role Phone Aniceto Otero MD Primary Care Provider [phone] Allergies Active Allergy Reactions Criticality Noted Date Comments Bacitracin Unknown 04/29/2025 Cat Dander Unknown 04/29/2025 Celecoxib Diarrhea,Nausea Low 04/29/2025 celecoxib Propoxyphene Other (see Comments) 04/29/2025 Diclofenac Diarrhea,Nausea Low 04/29/2025 diclofenac Gramineae Pollens Unknown 04/29/2025 Latex Hives High 04/14/2020 Neomycin-Bacitracin Zn-Polymyx Unknown 04/29/2025 Nsaids Other (see Comments) 04/29/2025 Apremilast Unknown 04/29/2025 Iron Sucrose Other (see Comments) Medium 04/29/2025 Medications acetaminophen (TYLENOL) 325 MG Tablet Take 650 mg by mouth every 6 hours as needed. Active alendronate (FOSAMAX) 70 MG Tablet Take 70 mg by mouth every 7 days. 04/07/2025 Active cetirizine (ZyrTEC Allergy) 10 MG Tablet Take 10 mg by mouth daily. 12/16/2014 Active lisinopril-hydro CHLOROthiazide (PRINZIDE, ZESTORETIC) 10-12.5 MG Tablet Take 1 Tablet by mouth daily. 12/16/2014 Active predniSONE (DELTASONE) 2.5 MG Tablet Take 2.5 mg by mouth daily. Active brimonidine (ALPHAGAN) 0.2 % Solution Place 1 Drop in left eye 2 times daily. 12/16/2014 Active Singulair 10 MG Tablet Take 10 mg by mouth every evening. 12/16/2014 Active rosuvastatin (CRESTOR) 20 MG Tablet Take 20 mg by mouth daily. 01/03/2018 Active Clobetasol Propionate 0.05 % Shampoo Apply 0.05 % daily. 10/16/2015 Active clobetasol (TEMOVATE) 0.05 % Ointment Apply 2 times daily. 05/01/2017 Active clobetasol (TEMOVATE) 0.05 % Solution Apply 2 times daily. 05/29/2019 Active upadacitinib er (Rinvoq) 15 MG TABLET SR 24 HR Take 1 Tablet by mouth daily. 12/09/2024 Active Multiple Vitamins-Mineral s (CENTRUM SILVER PO) Take by mouth. Active Psyllium (METAMUCIL PO) Take by mouth. Active Probiotic Product (PROBIOTIC DAILY PO) Take by mouth. Active omeprazole (PriLOSEC) 20 MG CAPSULE DELAYED RELEASE Take 20 mg by mouth daily. 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 04/29/2025 Anemia 07/19/2024 Gastroesophageal reflux disease without esophagi tis 12/17/2023 Primary malignant neoplasm of endocervix 023 Hyperlipidemia 06/09/2018 Glaucoma 04/21/2016 Overview (04/29/2025): Glaucoma Psoriatic arthritis 04/21/2016 Overview (04/29/2025): Psoriatic arthritis Essential hypertension 12/16/2014 Overview (04/29/2025): Essential hypertension Encounters Date Type Department Care Team Description 05/16/2025 11:00 AM CDT Clinical Support [facility] [address] [place] [address] Aniceto Otero MD 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) Discharge Disposition: Discharged to home or Selfcare 05/16/2025 Travel 05/15/2025 Travel 05/09/2025 11:00 AM CDT Clinical Support [facility] [address] [place] [address] Krystin Ramriez February, PAC 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) Discharge Disposition: Discharged to home or Selfcare 05/09/2025 Travel 05/07/2025 Travel 05/05/2025 Telephone [facility] [address] [place] [address] Krystin Ramirez February, PAC 05/02/2025 11:00 AM CDT Clinical Support [facility] Oncology Services [address] [place] [address] Aniceto Otero MD 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) Discharge Disposition: Discharged to home or Selfcare 05/02/2025 Travel 05/01/2025 Telephone [facility] Oncology Services [address] [place] [address] Krystin Ramirez February, PAC 04/30/2025 Travel 04/29/2025 10:00 AM CDT Lab [facility] [address] [place] [address] Krystin Ramirez February, PAC Iron deficiency anemia due to sideropenic dysphagia Discharge Disposition: Discharged to home or Selfcare 04/29/2025 9:20 AM CDT Initial Consult [facility] [address] [place] [address] Krystin Ramirez February, PAC 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) Discharge Disposition: Discharged to home or Selfcare 04/29/2025 Travel 04/27/2025 Travel 04/24/2025 Telephone [facility] Services [address] [place] [address] Aniceto Otero MD 04/18/2025 10:00 AM CDT Clinical Support [facility] [address] [place] [address] Aniceto Otero MD Iron deficiency anemia due to chronic blood loss (Primary Dx) Discharge Disposition: Discharged to home or Selfcare 04/18/2025 Travel from Last 3 Months Social History Tobacco Use Types Packs/Day Years Used Date Smoking Tobacco: Former Cigarettes Q uit: 1989 Smokeless Tobacco: Never Tobacco Cessation:Counseling Given: Not Answered Comments No Sex and Gender Information Value Date Recorded Sex Assigned at Not on file Legal Sex Female 11:16 AM CDT Gender Identity Not on file Sexual Orientation Not on file Last Filed Vital Signs Vital Sign Reading Time Taken Comments Blood Pressure 130/80 05/16/2025 11:00 AM CDT Pulse 82 05/16/2025 11:00 AM CDT Temperature 36.2 C (97.2 F) 05/16/2025 11:00 AM CDT Respiratory Rate 16 05/16/2025 11:0 0 AM CDT Oxygen Saturation 97% 05/16/2025 11: 00 AM CDT Inhaled Oxygen Concentration - - Weight 50.3 kg (110 lb 12.8 oz) 04/29/2025 9:13 AM CDT Height - - Body Mass Index - - Plan of Treatment Upcoming Encounters Date Type Department Care Team (Late st Contact Info) Description 06/30/2025 9:20 AM CDT Office Visit [facility] [place] [facility] [address] [place] [address] Krystin Ramirez Veronica, [facility] [address] [place] [address] Discharge Disposition: Discharged to home or Selfcare Health Maintenance Due Date Last Done Comments DEXA Bone Density 1955 Hepatitis C Virus (HCV) Screening 1955 Mammogram 1955 Cologuard 2000 Immunochemical Fecal Occult Blood 2000 Pneumococcal Immunization (50+ years) (3 of 3 - PCV20 or PCV21) 07/27/2021 06/01/2021, 01/02/2015 Influenza Immunization (#1) 05/19/202505/19, 06/08/2023, 06/21/2022, Additional history exists SARS-COV-2 Immunization ( season) 2025 03/10/2025, 06/04/2024, 12/15/2023, Additional history exists Colonoscopy 11/29/2033 11/30/2023 Colorectal Cancer Screening 11/29/2033 Zoster Immunization Completed 02/01/2021, 07/20/2020, 01/02/2015 Respiratory Syncytial Virus (RSV) Immunization (Adult) Completed 06/05/2023 TdaP Immunization Completed 06/11/2023 Hepatitis B Immunization Aged Out No longer eligible based on patient's age to complete this topic Human Papillomavirus (HPV) Immunization Aged Out No longer eligible based on patient's age to complete this topic Meningococcal Immunization (ACWY) Aged Out No longer eligible based on patient's age to complete this topic Rotavirus Immunization Aged Out No lo nger eligible based on patient's age to complete this topic Procedures Procedure Name Priority Date/Time Associated Diagnosis Comments CBC WITH AUTO DIFFERENTIAL Routine 04/29/2025 10:20 AM CDT Iron deficiency anemia due to sideropenic dysphagia IRON,TRANSFERN,CALC.TIB C,%SAT Routine 04/29/2025 10:20 AM CDT Iron deficiency anemia due to sideropenic dysphagia IMMUNOFIXATION W/ ELECTROPHORESIS SERUM Routine 04/29/2025 10:20 AM CDT Iron deficiency anemia due to sideropenic dysphagia FREE KAPPA & LAMBDA LIGHT CHAINS SERUM Routine 04/29/2025 10:20 AM CDT Iron deficiency anemia due to sideropenic dysphagia LACTATE DEHYDROGENASE (LD) Routine 04/29/2025 10:20 AM CDT Iron deficiency anemia due to sideropenic dysphagia RETICULOCYTE COUNT (RETIC) Routine 04/29/2025 10:20 AM CDT Iron deficiency anemia due to sideropenic dysphagia VITAMIN B12 Routine 04/29/2025 10:20 AM CDT Iron deficiency anemia due to sideropenic dysphagia COMPLETE BLOOD COUNT (CBC) WITH DIFF Routine 04/29/2025 10:20 AM CDT Iron deficiency anemia due to sideropenic dysphagia CMP (COMPREHENSIVE METABOLIC PANEL) Routine 04/29/2025 10:20 AM CDT Iron deficiency anemia due to sideropenic dysphagia FERRITIN Routine 04/29/2025 10:20 AM CDT Iron deficiency anemia due to sideropenic dysphagia FOLIC ACID (FOLATE) Routine 04/29/2025 1 0:20 AM CDT Iron deficiency anemia due to sideropenic dysphagia from Last 3 Months Results * (ABNORMAL) IRON,TRANSFERN,CALC.TIBC,%SAT (04/29/2025 10:20 AM CDT) Pathologist [facility] IRON 38 25 - 156 mcg/dL 04/29/2025 12:03 PM CDT [facility] TRANSFERRIN 297 173 - 360 mg/dL 04/29/2025 12:03 PM CDT [facility] TIBC, CALCULATED 371 265 - 497 mcg/dL 04/29/2025 12:03 PM CDT [facility] % SATURATION * 10(L) 15 - 62 % 04/29/2025 12:03 PM CDT [facility] Blood Venipuncture / Unknown 04/29/2025 10:20 AM CDT 04/29/2025 10:20 AM CDT us Krystin Ramirez PAC CHEMISTRY ORDERABLES Aure l Result [facility] [address] [place] [address] * (ABNORMAL) CBC WITH AUTO DIFFERENTIAL (04/29/2025 10:20 AM CDT) WBC 6.32 4.00 - 12.00 10(3)/mcL 04/29/2025 11:32 AM CDT [facility] RBC 3.43(L) 3.80 - 5.30 10(6)/mcL 04/29/2025 11:32 AM CDT [facility] HEMOGLOBIN (HGB) 9.5(L) 12.0 - 15.8 g/dL 04/29/2025 11:32 AM CDT [facility] HEMATOCRIT (HCT) 29.9(L) 36.0 - 47.0 % 04/29/2025 11:32 AM CDT [facility] MCV 87.2 82.0 - 96.0 fL 04/29/2025 11:32 AM CDT [facility] MCH 27.7 26.0 - 34.0 pg 04/29/2025 11:32 AM CDT [facility] MCHC 31.8 31.0 - 36.0 g/dL 04/29/2025 11:32 AM CDT [facility] PLATELET COUNT 496(H) 140 - 440 10(3)/[facility] 04/29/2025 11:32 AM CDT [facility] RDW 17.3(H) 11.8 - 15.5 % 04/29/2025 11:32 AM CDT [facility] MPV 9.3(L) 9.7 - 12.4 fL 04/29/2025 11:32 AM CDT [facility] NEUTROPHILS 70.5 47.0 - 73.0 % 04/29/2025 11:32 AM CDT [facility] LYMPHOCYTES 16.9(L) 18.0 - 42.0 % 04/29/2025 11:32 AM CDT [facility] MONOCYTES 9.5 4.0 - 12.0 % 04/29/2025 11:32 AM CDT [facility] EOSINOPHILS 1.7 0.0 - 5.0 % 04/29/2025 11:32 AM CDT [facility] BASOPHILS 0.8 0.0 - 1.0 % 04/29/2025 11:32 AM CDT [facility] ABSOLUTE NEUTROPHILS 4.45 1.60 - 7.70 10(3)/[facility] 04/29/2025 11:32 AM CDT [facility] ABSOLUTE LYMPHOCYTES 1.07(L) 1.30 - 3.20 10(3)/[facility] 04/29/2025 11:32 AM CDT [facility] ABSOLUTE MONOCYTES 0.60 0.20 - 1.00 10(3)/[facility] 04/29/2025 11:32 AM CDT [facility] ABSOLUTE EOSINOPHIL 0.11 0.00 - 0.40 10(3)/[facility] 04/29/2025 11:32 AM CDT [facility] ABSOLUTE BASOPHILS 0.05 0.00 - 0.10 10(3)/[facility] 04/29/2025 11:32 AM CDT [facility] NRBC PER 100 WBC 0 04/29/20 11:32 AM CDT [facility] Blood Venipuncture / Unknown 04/29/2025 10:20 AM CDT 04/29/2025 10:20 AM CDT Krystin Ramirez PAC HEMATOLOGY ORDERABLES Fin al Result [facility] [address] [place] [address] * FREE KAPPA & LAMBDA LIGHT CHAINS SERUM (04/29/2025 10:20 AM CDT) Free [place] Lt Chn 18.66 3.30 - 19.40 mg/L 04/30/2025 9:27 AM CDT [facility] Free Lambda Lt Chn 12.12 5.71 - 26.30 mg/L 04/30/2025 9:27 AM CDT [facility] free sofia guzmán ratio 1.54 0.26 - 1.65 04/30/2025 9:27 AM CDT [facility] Blood Venipuncture / Unknown 04/29/2025 10:20 AM CDT 04/29/2025 10:20 AM CDT [facility] PAC CHEMISTRY ORDERABLES Aure l Result [facility] [address] [place] [address], [place] * VITAMIN B12 (04/29/2025 10:20 AM CDT) VITAMIN B12 644 213 - 816 pg/mL 04/29/2025 1:27 PM CDT [facility] Blood Venipuncture / Unknown 04/29/2025 10:20 AM CDT 04/29/2025 10:20 AM CDT [facility] PAC CHEMISTRY ORDERABLES Aure l Result Performing Organization Address City/[facility]/ZIP Co de Phone Number [facility] [address] [place] [address] * RETICULOCYTE COUNT (RETIC) (04/29/2025 10:20 AM CDT) RETICULOCYTES 1.8 0.5 - 2.0 % 04/29/2025 11:32 AM CDT [facility] Blood Venipuncture / Unknown 04/29/2025 10:20 AM CDT 04/29/2025 10:20 AM CDT [facility] PAC HEMATOLOGY ORDERABLES Fin al Result Performing Organization Address City/[facility]/ZIP Co de Phone Number [facility] [address] [place] [address] * LACTATE DEHYDROGENASE (LD) (04/29/2025 10:20 AM CDT) LDH 212 125 - 220 U/L 04/29/2025 12:03 PM CDT [facility] Blood Venipuncture / Unknown 04/29/2025 10:20 AM CDT 04/29/2025 10:20 AM CDT Krystin Ramirez PAC CHEMISTRY ORDERABLES Aure sydney Result [facility] [address] [place] [address] * (ABNORMAL) IMMUNOFIXATION W/ ELECTROPHORESIS SERUM (04/29/2025 10:20 AM CDT) TOTAL PROTEIN 6.3 6.0 - 8.0 g/dL 05/02/2025 12:54 PM CDT [facility] % ALBUMIN 59.1 55.8 - 66.7 % 05/02/2025 12:54 PM CDT [facility] ALBUMIN SERUM 3.7 2.5 - 5.4 g/dL 05/02/2025 12:54 PM CDT [facility] % ALPHA 1 GLOBULIN 5.0(H) 2.9 - 4.9 % 05/02/2025 12:54 PM CDT [facility] ALPHA 1 0.3 0.2 - 0.4 g/dL 05/02/2025 12:54 PM CDT [facility] % ALPHA 2 GLOBULIN 13.2(H) 7.1 - 11.8 % 05/02/2025 12:54 PM CDT [facility] ALPHA 2 0.8 0.5 - 1.0 g/dL 05/02/2025 12:54 PM CDT [facility] % BETA 13.5(H) 8.4 - 13.1 % 05/02/2025 12:54 PM CDT [facility] BETA-GLOBULIN 0.9 0.5 - 1.1 g/dL 05/02/2025 12:54 PM CDT [facility] % GAMMA GLOBULIN 9.1(L) 11.1 - 18.8 % 05/02/2025 12:54 PM CDT [facility] GAMMA 0.6(L) 0.7 - 1.5 g/dL 05/02/2025 12:54 PM CDT [facility] IMMUNOGLOBULIN G 454(L) 552 - 1,631 mg/dL 05/02/2025 12:54 PM CDT [facility] IMMUNOGLOBULIN A 72 69 - 517 mg/dL 05/02/2025 12:54 PM CDT [facility] IMMUNOGLOBULIN M 85 33 - 293 mg/dL 05/02/2025 12:54 PM CDT [facility] INTERPRETATION SERUM No abnormal protein band is detected by serum protein electrophoresis. Serum immunofixation electrophoresis is negative for monoclonal immunoglobulins. Reviewed by Rancho Alan M.D. 05/02/2025 12:54 PM CDT [facility] A/G RATIO, SERUM 1.4 05/02/20 12:54 PM CDT [facility] Blood Venipuncture / Unknown 04/29/2025 10:20 AM CDT 04/29/2025 10:20 AM CDT [facility] PAC CHEMISTRY ORDERABLES Aure l Result [facility] [address] [place] [address], * FOLIC ACID (FOLATE) (04/29/2025 10:20 AM CDT) FOLATE 31.4 7.0 - 31.4 ng/mL 04/29/2025 2:52 PM CDT [facility] IS THE PATIENT REQUIRED TO BE FASTING? No 04/29/2025 2:52 PM CDT [facility] Blood Venipuncture / Unknown 04/29/2025 10:20 AM CDT 04/29/2025 10:20 AM CDT [facility] PAC CHEMISTRY ORDERABLES Aure l Result [facility] [address] [place] [address] * FERRITIN (04/29/2025 10:20 AM CDT) Pathologist [facility] FERRITIN 150 5 - 204 ng/mL 04/29/2025 12:24 PM CDT [facility] Blood Venipuncture / Unknown 04/29/2025 10:20 AM CDT 04/29/2025 10:20 AM CDT Krystin Ramirez PAC CHEMISTRY ORDERABLES Aure l Result [facility] [address] [place] [address] * (ABNORMAL) CMP (COMPREHENSIVE METABOLIC PANEL) (04/29/2025 10:20 AM CDT) Pathologist [facility] SODIUM 134(L) 136 - 145 mmol/L 04/29/2025 12:03 PM CDT [facility] POTASSIUM 4.0 3.5 - 5.1 mmol/L 04/29/2025 12:03 PM CDT [facility] CHLORIDE 101 98 - 107 mmol/L 04/29/2025 12:03 PM CDT [facility] CO2, VENOUS 26 22 - 30 mmol/L 04/29/2025 12:03 PM CDT [facility] ANION GAP 11.0 <18.0 mmol/L 04/29/2025 12:03 PM CDT [facility] GLUCOSE 92 70 - 99 mg/dL 04/29/2025 12:03 PM CDT [facility] BUN 15 10 - 20 mg/dL 04/29/2025 12:03 PM CDT [facility] CREATININE, BLOOD 0.62 0.60 - 1.00 mg/dL 04/29/2025 12:03 PM CDT [facility] BUN/CREATININE RATIO 24(H) 12 - 20 ratio 04/29/2025 12:03 PM CDT [facility] TOTAL PROTEIN 6.8 6.0 - 8.0 g/dL 04/29/2025 12:03 PM CDT [facility] ALBUMIN 4.4 3.5 - 5.0 g/dL 04/29/2025 12:03 PM CDT [facility] A/G RATIO 1.8 1.0 - 2.2 04/29/2025 12:03 PM CDT [facility] CALCIUM 9.3 8.7 - 10.5 mg/dL 04/29/2025 12:03 PM CDT [facility] T BILI 0.2 0.2 - 1.2 mg/dL 04/29/2025 12:03 PM CDT [facility] SGOT (AST) 29 <43 U/L 04/29/2025 12:03 PM CDT [facility] SGPT (ALT) 21 <56 U/L 04/29/2025 12:03 PM CDT [facility] ALKALINE PHOSPHATASE 77 40 - 150 U/L 04/29/2025 12:03 PM CDT [facility] IS THE PATIENT REQUIRED TO BE FASTING? No 04/29/2025 12:03 PM CDT [facility] GFR, ESTIMATED >60 >=60 04/29/2025 12:03 PM CDT [facility] Comment: Creatinine Clearance is the preferred criteria for selecting drug dose adjustments in renally impaired patients. The GFR is provided as additional pertinent clinical information. GFR is reported in mL/min/1.73 sq m. Calculation based on the Chronic Kidney Disease Epidemiology Collaboration (CKD- EPI) equation refit without adjustment for race. GFR, EST. >60 >=60 025 12:03 PM CDT [facility] GFR, EST. NONAFRICAN >60 >=60 04/29/2025 12:03 PM CDT [facility] Blood Venipuncture / Unknown 04/29/2025 10:20 AM CDT 04/29/2025 10:20 AM CDT us Krystin Ramirez PAC CHEMISTRY ORDERABLES Aure l Result [facility] [address] [facility] [place] [address] from Last 3 Months Insurance MEDICARE C [facility] Care Teams Product Development Specialist Relationship Specialty Start Date End Date Aniceto Otero MD [address] [place] [address] PCP - General Internal Medicine 04/16/25
--- OUTSIDE RECORDS SUMMARY | 2025-06-12 05:13 | XMS_ITS ---
Author Organization [facility] Address [address] [place] [address] Care Team Providers Care Abattoir Supervisor Name Role Phone Aniceto Otero MD Primary Care Provider [phone] Venancio Trinidad MD Unavailable [phone] Vaishnavi Tran MD Unavailable [phone] Brittany Harrison MD Unavailable [phone] Active Problems Problem Noted Date Diagnosed Date Gastroesophageal reflux disease without esophagi tis 12/17/2023 Disorder of skin or subcutaneous tissue 06/02/20 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 Cancer Staging:Pathologic stage from 12/27/2022:FIGO Stage IB2(pT1b2, pN0, cM0) - Signed by Claudette Sol MD on 01/12/2023 Hyperglycemia 02/27/2019 Hyperlipidemia 06/09/2018 Psoriasis 04/23/2017 Glaucoma 04/21/2016 Overview (12/23/2016): Glaucoma Psoriatic arthritis 04/21/2016 Overview (12/23/2016): Psoriatic arthritis Essential hypertension 12/16/2014 Overview (12/23/2016): Essential hypertension Atopic rhinitis 12/16/2014 Overview (12/23/2016): Allergic rhinitis Current Treatment and Therapy Plans No current plan information found. Past Treatment and Therapy Plans No past plan information found. Radiation Treatments * Course C1 Cervix 202203/02/2023 - 04/18/2023 Treatment Period Energy Fraction Dose Fractions Total Dose Plans Planned RePln Pelvis 03/08/2023 - 04/18/2023 180 25 / 4,500 PELVIS 03/02/2023 - 03/06/2023 180 3 / 5,040 Reference Points Delivered Pelvis 03/02/2023 - 04/18/2023 5,040 Lifetime Dose Tracking * Chemical Lifetime Dose Automatic Entry Manual Entr y DLP 647 mGycm 647 mGycm 0 mGycm Resolved Problems Problem Noted Date Diagnosed Date Resolved Date Pain, abdominal 10/31/2023 04/16/2025 Loose bowel movements 10/31/20232024 Dysuria 06/02/2023 04/16/2025 Hand pain 06/02/2023 04/16/2025 Urinary tract infectious disease 06/02/2023 04/16/2025 Nicotine dependence 04/26/2022 12/07/19 23
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
--- NOTE | 2025-06-12 08:01 | SUR.OPER ---
Patient brought to GI Lab. Instructions for patient undergoing Patency Capsule Endoscopy reviewed with patient. Consent form signed. Patient swallowed capsule with 8 ozs of water. Patient instructed they may have clear liquids at 0630 this AM and eat or drink at 1030 this AM. Patient instructed to return to imaging center tomorrow 06/13/25 between 10am and 12pm with order for XRAY and to call GI Lab after XRAY is taken. Instructed patient to call [phone] or to go to the ER if any nausea and vomiting or abdominal pain is experienced.
== END 2025-06-12 05:12 | disposition home or self-care (01) ==
PROVIDERS: PCP Internal Medicine; Referring Provider Nurse Practitioner; Visit Provider Internal Medicine Gastroenterology
PROC: 0DJ07ZZ Inspection of Upper Intestinal Tract, Via Natural or Artificial Opening (ICD-10-PCS; CPT 91110; principal; 2025-06-12 07:00)
DX: D50.9 Iron deficiency anemia, unspecified (principal)
CPT/HCPCS: 91110

== ENCOUNTER 2025-06-13 10:16 | Outpatient (CLI) | payer MEDICARE, SELFPAY ==
--- OUTSIDE RECORDS SUMMARY | 2010-03-25 08:00 | XMS_ITS | Continuity of Care Document ---
Author Organization [facility] Address [address] [place] [address] [facility] [address] [place] [address] Phone Care Team Providers Care Grades 6 Through 8 Teacher Name Role Phone Alexandr PRATT FACS, Leopoldo [...] Diagnoses Date Provider Providers Copied on Encounter [facility], [address] [facility] [address], [place], [place], [address], [place] tel:[phone] SEC Alan Castellanos No Information 0 Alexandr Mina. [address] [facility], [address], [place], [place], [address], [place]. tel:[phone] Referring Provider: Leopoldo Adame [address] [place] [address], [place], [address] . tel:[phone] [facility], [address] [place] [address] [address], [place], [place], [address], [place] tel:[phone] SEC Alan Rodríguezbergbarbara No Information Ant-1 0-201 0 [facility] . [address] [facility], [address], [place], [address], . tel:[phone] Referring Provider: Jesse Hassan, [address] [facility] [address], [place], [address] . tel:[phone] sulting Provider: Latha Reyes, [address] [place] [address], [address]. tel:[phone] [facility], [address] [place] [address] [address], [place], [place], [address], [place] tel:[phone] SEC Alan Castellanos No Information Mar-2 3-201 0 [facility] . [address] [facility], [address], [place], [address], . tel:[phone] Referring Provider: Jesse Hassan, [address] [facility] [address], [place], [address] . tel:[phone] sulting Provider: Latha Reyes, [address] [place] [address], [address]. tel:[phone] [facility]pat ient [facility], [address] [place] [address] [address], [place], [place], [address], [place] tel:[phone] SEC Alan Castellanos No Information Dec-0 7-200 9 Alexandr Mina. [address] [place] [address], [address], [place], [place], [address], [place]. tel:[phone] [facility], [address] [place] [address] [address], [place], [place], [address], [place] tel:[phone] SEC [place] No Information Dale-3 0-200 9 [facility] . [address], [id number], . tel:[phone] Referring Provider: Jesse Hassan, [address], [address] . tel:[phone] sulting Provider: Latha Reyes, [address] [place] [address], [address]. tel:[phone] [facility], [address] [place] [address] [address], [place], [place], [address], [place] tel:[phone] SEC Alan N Lindbergh No Information Ant-0 4-200 9 Nany Molina. [address] [place] [address], [id number], [place]. tel:[phone] [facility], [address] [place] [address] [address], [place], [place], [address], [place] tel:[phone] SEC Alan N Lindbergh No Information Oct-2 7-200 8 [facility] . [address] [place] [address], [id number], [place]. tel:[phone] Referring Provider: Jesse Hassan, [address] [place] [address], [address] . tel:[phone] sulting Provider: Latha Reyes, [address] [place] [address], [address]. tel:[phone] [facility], [address] [place] [address] [address], [place], [place], [address], [place] tel:[phone] SEC Alan N Lindbergh No Information Feb-0 4-200 8 [facility] . [address] [place] [address], [id number], . tel:[phone] Referring Provider: Jesse Hassan, [address], [address] . tel:[phone] sulting Provider: Ltaha Reyes, [address] [place], [address]. tel:[phone] [facility], [address] [place] [address] [address], [place], [place], [address], [place] tel:[phone] SEC Alan N Lindbergh No Information Feb-0 4-200 8 Alexandr Mina. [address] [place] [address], [address], [place], [place], [address], [place]. tel:[phone] Referring Provider: Leopoldo Adame, [address] [place] [address] [address], [place], [address] . tel:[phone] [facility], [address] [place] [address] [address], [place], [place], [address], [place] tel:[phone] SEC Alan N Lindbergh No Information Dale-0 6-200 7 [facility] . [address] [place] [address], [address], [id number], [place]. tel:[phone] Referring Provider: Jesse Hassan, [address], [address] . tel:[phone] sulting Provider: Latha Reyes, [address] [place] [address], [address]. tel:[phone] [facility], [address] [place] [address] [address], [place], [place], [address], [place] tel:[phone] SEC [place] N [place] No Information Feb-0 6-200 7 [facility] . [address] [place] [address], [address], [id number], . tel:[phone] Referring Provider: Jesse Hassan, [address] [facility] [address], [place], [address] . tel:[phone] sulting Provider: Latha Reyes, [address] [place], [address]. tel:[phone] Family History Family Member Type Diagnosis Age At Onset No Information Payers Payer name Insurance type Covered constitution party ID Authoriza tion(s) No Information Social History [...]
--- NOTE | ~2025-06-13 | XR_ITS ---
EXAMINATION: XR abdomen/kub 1V, 06/13/2025 10:28 CDT HISTORY: D50.9-Iron deficiency anemia; LOOKING TO SEE IF PILL PASSED COMPARISON: No comparisons available. Technique: 3 view. Findings: Moderate fecal content, no dilated bowel loops. No free air. No abnormal calcifications There is a radiopaque foreign body overlying the rectum. No acute osseous abnormality. Impression: 1. No acute abnormality. Reviewed, dictated and finalized at location P. Impression: 1. No acute abnormality.
--- OUTSIDE RECORDS SUMMARY | 2025-06-13 10:20 | XMS_ITS | Encounter Summary ---
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 Gender Identity Female 09/19/2019 7:09 AM SENIOR ERP CONSULTANT Sexual Orientation Not on file documented as [...] on filedocumented in this encounter Care Teams Outdoor Emergency Care Technician Relationship Specialty Start Date End Date Aniceto Otero MD PCP - General 01/25/18 Venancio Trinidad MD [address] [place] [address] Referring Physician Obstetrics and Gynecology 01/26/23 Vaishnavi Tran MD [address] [facility] [address] [place] [address] Consulting Physician Rheumatology 01/26/23 Brittany Harrison MD [address] [facility] [address] [place] [address] Radiation Oncologist Radiation Oncology 03/22/23 documented as of this encounter
--- OUTSIDE RECORDS SUMMARY | 2025-06-13 10:20 | XMS_ITS | Encounter Summary ---
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 Gender Identity Female 09/19/2019 7:09 AM EVENT SET UP SPECIALIST Sexual Orientation Not on file documented as [...] on filedocumented in this encounter Care Teams Bullion Weigher Relationship Specialty Start Date End Date Aniceto Otero MD PCP - General 01/25/18 Venancio Trinidad MD [address] [place] [address] Referring Physician Obstetrics and Gynecology 01/26/23 Vaishnavi Tran MD [address] [facility] [address] [place] [address] Consulting Physician Rheumatology 01/26/23 Brittany Harrison MD [address] [facility] [address] [place] [address] Radiation Oncologist Radiation Oncology 03/22/23 documented as of this encounter
--- OUTSIDE RECORDS SUMMARY | 2025-06-13 10:20 | XMS_ITS | Encounter Summary ---
Author Organization 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 Gender Identity Female 09/19/2019 7:09 AM STUDIO MODEL Sexual Orientation Not on file documented as [...] on filedocumented in this encounter Care Teams Vendor Quality Supervisor Relationship Specialty Start Date End Date Aniceto Otero MD PCP - General 01/25/18 Venancio Trinidad MD [address] [place] [address] Referring Physician Obstetrics and Gynecology 01/26/23 Vaishnavi Tran MD [address] [place] [address] Consulting Physician Rheumatology 01/26/23 Brittany Harrison MD [address] [place] [address] Radiation Oncologist Radiation Oncology 03/22/23 documented as of this encounter
--- OUTSIDE RECORDS SUMMARY | 2025-06-13 10:20 | XMS_ITS | Clinical Summary ---
Author Organization [facility] Address [address] [place] [address] Care Team Providers Care Hydramatic Mechanic Name Role Phone Unavailable Primary Care Provider Unavailabl e Source Comments [facility],non-owned Affiliates and Associated Physician Practices is amultiple site organization consisting of ambulatory clinics and hospital sitesin [place], [place]. This disclosure is being madepursuant to the Care Everywhere program and may not contain all information available regarding this patient. Last updated 18.[facility] [email or web address] Immunizations Immunization Administration Dates Next Due INFLUENZA VACCINE, QUADR. (F LUZONE; FLULAVAL; FLUARIX; AFLURIA QUADRIVALENT; 6MO+), 0.5 ML (IIV4) 06/08/2020 Social History Tobacco Use Types Packs/Day Years Used Date Smoking Tobacco: Never Assessed Comments Unknown Sex and Gender Information Value Date Recorded Sex Assigned at Not on file Legal Sex Female 9:05 AM CDT Gender Identity Not on file Sexual Orientation Not on file Plan of Treatment Health Maintenance Due Date Last Done Comments BONE DENSITY TESTING 1955 COLOGUARD (AGES 45-75) - COLON CA SCREENING 1955 COLON MONITORING 1955 COLONOSCOPY - COLON CA SCREENING 1955 CT COLONOGRAPHY - COLON CA SCREENING 1955 Colorectal Cancer Screening 1955 FIT - COLON CA SCREENING 1955 FLEX SIG - COLON CA SCREENING 1955 LIPID TESTING 1955 MAMMOGRAM 1955 HEPATITIS C SCREENING 07/13/1973 DTAP/TDAP/TD VACCINES (1 - Tdap) 1974 PNEUMOCOCCAL VACCINE 50+ (1 of 1 - PCV) 2005 ZOSTER VACCINE (1 of 2) 2005 DEPRESSION SCREENING 09/18/2024 MEDICARE AWV CALENDAR YEAR 2024 COVID-19 VACCINE (1 - season) 2025 INFLUENZA VACCINE (#1) 2025 0, 05/24/2019, 06/01/2018, Additional history exists Respiratory Syncytial Virus (RSV) Vaccine Pt: or over 60 yrs (1 - 1-dose 75+ series) 2030 HEPATITIS B VACCINE Aged Out No longe r eligible based on patient's age to complete this topic HIB VACCINE Aged Out No longer eligi ble based on patient's age to complete this topic HPV VACCINE Aged Out No longer eligi ble based on patient's age to complete this topic MENINGOCOCCAL (Group B) VACCINE SHARED DECISION-MAKING Aged Out No longer eligible based on patient's age to complete this topic MENINGOCOCCAL GROUPS A/C/Y/W VACCINE Aged Out No longer eligible based on patient's age to complete this topic Insurance [facility] UHC MANAGED MEDICARE ADV * Guarantor: BRIAN KOCH Account Type Relation to Patient Date of Phone Billing Address Personal/Family [address] [place] [address] SELF PAY NO INSURANCE Member Subscriber Plan / Payer (Ef fective for All Dates) Name:Brian Koch Member ID:Not on file Relation to Subscriber:Not on file Name:BRIAN KOCH Subscriber ID:Not on file (Home) Address: [address] [place] [address] [place] [address] Payer ID:Not on file Group ID:Not on file Type:Self Pay Address: [facility] MANAGED MEDICARE ADV * Guarantor: BRIAN KOCH Account Type Relation to Patient Date of Phone Billing Address Personal/Family [address] [place] [address] SELF PAY NO INSURANCE Member Subscriber Plan / Payer (Ef fective for All Dates) Name:Brian Koch Member ID:Not on file Relation to Subscriber:Not on file Name:BRIAN KOCH Subscriber ID:Not on file (Home) Address: [address] [address] Payer ID:Not on file Group ID:Not on file Type:Self Pay Address: [facility] MANAGED MEDICARE ADV * Guarantor: BRAIN KOCH Account Type Relation to Patient Date of Phone Billing Address Personal/Family [address] [place] [phone] SELF PAY NO INSURANCE Member Subscriber Plan / Payer (Ef fective for All Dates) Name:Brian Koch Member ID:Not on file Relation to Subscriber:Not on file Name:BRIAN KOCH Subscriber ID:Not on file (Home) Address: [address] [place] [address] [place] [address] Payer ID:Not on file Group ID:Not on file Type:Self Pay Address: [facility] MANAGED MEDICARE ADV
--- OUTSIDE RECORDS SUMMARY | 2025-06-13 10:20 | XMS_ITS | Encounter Summary ---
Author Organization [facility] Address [address] [place] [address] Phone Care Team Providers Care Shoeshiner Name Role Phone Aniceto Otero MD Primary Care Provider + [phone] Venancio Trinidad MD Unavailable [phone] Vaishnavi Tran MD Unavailable [phone] Brittany Harrison MD Unavailable [phone] Encounter Details Date Type Department Care Team [...] on file Legal 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:35 AM JOB SPOTTER Gender Identity Female 09/19/2019 7:09 AM JOB SPOTTER Sexual Orientation Not on file documented as [...] on filedocumented in this encounter Care Teams Shoeshiner Relationship Specialty Start Date End Date Aniceto Otero MD PCP - General 01/25/18 Venancio Trinidad MD [address] [place] [address] Referring Physician Obstetrics and Gynecology 01/26/23 Vaishnavi Tran MD [address] [facility] [address] [place] [address] Consulting Physician Rheumatology 01/26/23 Brittany Harrison MD [address] [facility] [address] [place] [address] Radiation Oncologist Radiation Oncology 03/22/23 documented as of this encounter
--- OUTSIDE RECORDS SUMMARY | 2025-06-13 10:20 | XMS_ITS | Encounter Summary ---
Author Organization [facility] Address [address] [place] [address] Phone Care Team Providers Care Patcher Helper Name Role Phone Aniceto Otero MD Primary Care Provider + [phone] Venancio Trinidad MD Unavailable [phone] Vaishnavi Tran MD Unavailable [phone] Brittany Harrison MD Unavailable [phone] Encounter Details Date Type Department Care Team (Late st Contact Info) Description 05/06/2025 Results Follow-Up [facility] Medicine Rheumatology [address] [facility] Advanced Medicine 5th [place] [address] [place] [address] Micheal Toro MD [address] [place] [address] Lipid panel Social History Tobacco Use Types [...] on file Legal 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:35 AM LOGISTICS ASSISTANT Gender Identity Female 09/19/2019 7:09 AM LOGISTICS ASSISTANT Sexual Orientation Not on file documented as of this encounter Plan of Treatment Scheduled Procedures Name Priority Associated Diagnoses Date/Ti me COLONOSCOPY Open Access Cancer of endocervix (HCC) Pain, abdominal Loose bowel movements documented as of this encounter Visit Diagnoses Not on filedocumented in this encounter Care Teams Patcher Helper Relationship Specialty Start Date End Date Aniceto Otero MD PCP - General 01/25/18 Venancio Trinidad MD [address] [place] [address] Referring Physician Obstetrics and Gynecology 01/26/23 Vaishnavi Tran MD [address] [place] [address] Consulting Physician Rheumatology 01/26/23 Brittany Harrison MD [address] [place] [address] Radiation Oncologist Radiation Oncology 03/22/23 documented as of this encounter
--- OUTSIDE RECORDS SUMMARY | 2025-06-13 10:20 | XMS_ITS | Encounter Summary ---
Author Organization [facility] Address [address] [place] [address] Phone Care Team Providers Care Measurement Operator Name Role Phone Aniceto Otero MD Primary Care Provider + [phone] Venancio Trinidad MD Unavailable [phone] Vaishnavi Tran MD Unavailable [phone] Brittany Harrison MD Unavailable [phone] Encounter Details Date Type Department Care Team (Late st Contact Info) Description 11/02/2021 Orders Only [facility] Scanning, Provider Social History Tobacco Use Types Packs/Day Years Used Date Smoking Tobacco: Former Smokeless Tobacco: Never Alcohol Use Standard Drinks/Week Comments No 0 (1 standard drink = 0.6 oz pur e alcohol) Comments Unknown Sex and Gender Information Value Date Recorded Sex Assigned at Not on file Legal 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:35 AM OPTICS MANUFACTURING TECHNICIAN Gender Identity Female 09/19/2019 7:09 AM OPTICS MANUFACTURING TECHNICIAN Sexual Orientation Not on file documented as of this encounter Plan of Treatment Scheduled Procedures Name Priority Associated Diagnoses Date/Ti me COLONOSCOPY Open Access Cancer of endocervix (HCC) Pain, abdominal Loose bowel movements documented as of this encounter Procedures Procedure Name Priority Date/Time Associated Diagnosis Comments SCAN - LABS 11/02/2021 documented in this encounter Results * SCAN - LABS (11/02/2021) us Provider Scanning Edited Result - Final documented in this encounter Visit Diagnoses Not on filedocumented in this encounter Care Teams Measurement Operator Relationship Specialty Start Date End Date Aniceto Otero MD PCP - General 01/25/18 Venancio Trinidad MD [address] [place] [address] Referring Physician Obstetrics and Gynecology 01/26/23 Vaishnavi Tran MD [address] [place] [address] Consulting Physician Rheumatology 01/26/23 Brittany Harrison MD [address] [place] [address] Radiation Oncologist Radiation Oncology 03/22/23 documented as of this encounter
--- OUTSIDE RECORDS SUMMARY | 2025-06-13 10:21 | XMS_ITS | Clinical Summary ---
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) Discharge Disposition: Discharged to home or Selfcare 05/16/2025 Travel 05/15/2025 Travel 05/09/2025 11:00 AM CDT [facility] [address] [place] [address] Krystin Ramirez February, PAC 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) Discharge Disposition: Discharged to home or Selfcare 05/09/2025 Travel 05/07/2025 Travel 05/05/2025 Telephone [facility] [address] [place] [address] Krystin Ramirez February, PAC 05/02/2025 11:00 AM CDT Clinical Support [facility] Oncology Services [address] [place] [address] Aniceto Otero MD 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) Discharge Disposition: Discharged to home or Selfcare 05/02/2025 Travel 05/01/2025 Telephone [facility] Oncology Services [address] [place] [address] Krystin Ramirez February, PAC 04/30/2025 Travel 04/29/2025 10:00 AM CDT Lab [facility] [address] [place] [address] Krystin Ramirez February, PAC Iron deficiency anemia due to sideropenic dysphagia Discharge Disposition: Discharged to home or Selfcare 04/29/2025 9:20 AM CDT Initial Consult [facility] [address] [place] [address] Krystin Ramirez February, PAC 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 [address] [place] [address] Discharge Disposition: Discharged to home or Selfcare [...] (ABNORMAL) IRON,TRANSFERN,CALC.TIBC,%SAT (04/29/2025 10:20 AM CDT) Pathologist [facility] IRON 38 25 - 156 mcg/dL 04/29/2025 12:03 PM CDT [facility] TRANSFERRIN 297 173 - 360 mg/dL 04/29/2025 12:03 PM CDT [facility] TIBC, CALCULATED 371 265 - 497 mcg/dL 04/29/2025 12:03 PM CDT [facility] % SATURATION * 10(L) 15 - 62 % 04/29/2025 12:03 PM CDT [facility] Blood Venipuncture / Unknown 04/29/2025 10:20 AM CDT 04/29/2025 10:20 AM CDT us Krystin Ramirez PAC CHEMISTRY ORDERABLES Aure l Result [facility] [place] [address] * (ABNORMAL) CBC WITH AUTO DIFFERENTIAL (04/29/2025 10:20 AM CDT) WBC 6.32 4.00 - 12.00 10(3)/mcL 04/29/2025 11:32 AM CDT [facility] RBC 3.43(L) 3.80 - 5.30 10(6)/mcL 04/29/2025 11:32 AM CDT [facility] HEMOGLOBIN (HGB) 9.5(L) 12.0 - 15.8 g/dL 04/29/2025 11:32 AM CDT [facility] HEMATOCRIT (HCT) 29.9(L) 36.0 - 47.0 % 04/29/2025 11:32 AM CDT [facility] MCV 87.2 82.0 - 96.0 fL 04/29/2025 11:32 AM CDT [facility] MCH 27.7 26.0 - 34.0 pg 04/29/2025 11:32 AM CDT [facility] MCHC 31.8 31.0 - 36.0 g/dL 04/29/2025 11:32 AM CDT [facility] LAB PLATELET COUNT 496(H) 140 - 440 10(3)/[facility] 04/29/2025 11:32 AM CDT [facility] RDW 17.3(H) 11.8 - 15.5 % 04/29/2025 11:32 AM CDT [facility] MPV 9.3(L) 9.7 - 12.4 fL 04/29/2025 11:32 AM CDT [facility] NEUTROPHILS 70.5 47.0 - 73.0 % 04/29/2025 11:32 AM CDT [facility] LYMPHOCYTES 16.9(L) 18.0 - 42.0 % 04/29/2025 11:32 AM CDT [facility] MONOCYTES 9.5 4.0 - 12.0 % 04/29/2025 11:32 AM CDT [facility] EOSINOPHILS 1.7 0.0 - 5.0 % 04/29/2025 11:32 AM CDT [facility] BASOPHILS 0.8 0.0 - 1.0 % 04/29/2025 11:32 AM CDT [facility] ABSOLUTE NEUTROPHILS 4.45 1.60 - 7.70 10(3)/[facility] 04/29/2025 11:32 AM CDT [facility] ABSOLUTE LYMPHOCYTES 1.07(L) 1.30 - 3.20 10(3)/[facility] 04/29/2025 11:32 AM CDT [facility] ABSOLUTE MONOCYTES 0.60 0.20 - 1.00 10(3)/[facility] 04/29/2025 11:32 AM CDT [facility] ABSOLUTE EOSINOPHIL 0.11 0.00 - 0.40 10(3)/[facility] 04/29/2025 11:32 AM CDT [facility] ABSOLUTE BASOPHILS 0.05 0.00 - 0.10 10(3)/[facility] 04/29/2025 11:32 AM CDT [facility] NRBC PER 100 WBC 0 04/29/20 11:32 AM CDT [facility] Blood Venipuncture / Unknown 04/29/2025 10:20 AM CDT 04/29/2025 10:20 AM CDT Krystin Ramirez PAC HEMATOLOGY ORDERABLES Fin al Result [facility] LAB [address] [place] [address] * FREE KAPPA & LAMBDA LIGHT CHAINS SERUM (04/29/2025 10:20 AM CDT) Free [place] Lt Chn 18.66 3.30 - 19.40 mg/L 04/30/2025 9:27 AM CDT [facility] Free Lambda Lt Chn 12.12 5.71 - 26.30 mg/L 04/30/2025 9:27 AM CDT [facility] free sofia guzmán ratio 1.54 0.26 - 1.65 04/30/2025 9:27 AM CDT [facility] Blood Venipuncture / Unknown 04/29/2025 10:20 AM CDT 04/29/2025 10:20 AM CDT [facility] PAC CHEMISTRY ORDERABLES Aure l Result [facility] [address] [place] [address], [place] * VITAMIN B12 (04/29/2025 10:20 AM CDT) VITAMIN B12 644 213 - 816 pg/mL 04/29/2025 1:27 PM CDT [facility] Blood Venipuncture / Unknown 04/29/2025 10:20 AM CDT 04/29/2025 10:20 AM CDT [facility] PAC CHEMISTRY ORDERABLES Aure l Result Performing Organization Address City/[facility]/ZIP Co de Phone Number [facility] LAB [address] [place] [address] * RETICULOCYTE COUNT (RETIC) (04/29/2025 10:20 AM CDT) RETICULOCYTES 1.8 0.5 - 2.0 % 04/29/2025 11:32 AM CDT [facility] Blood Venipuncture / Unknown 04/29/2025 10:20 AM CDT 04/29/2025 10:20 AM CDT [facility] PAC HEMATOLOGY ORDERABLES Fin al Result Performing Organization Address City/[facility]/ZIP Co de Phone Number [facility] LAB [address] [place] [address] * LACTATE DEHYDROGENASE (LD) (04/29/2025 10:20 AM CDT) LDH 212 125 - 220 U/L 04/29/2025 12:03 PM CDT [facility] Blood Venipuncture / Unknown 04/29/2025 10:20 AM CDT 04/29/2025 10:20 AM CDT Krystin Ramirez PAC CHEMISTRY ORDERABLES Aure sydney Result [facility] LAB [address] [place] [address] * (ABNORMAL) IMMUNOFIXATION W/ ELECTROPHORESIS SERUM (04/29/2025 10:20 AM CDT) TOTAL PROTEIN 6.3 6.0 - 8.0 g/dL 05/02/2025 12:54 PM CDT [facility] % ALBUMIN 59.1 55.8 - 66.7 % 05/02/2025 12:54 PM CDT [facility] ALBUMIN SERUM 3.7 2.5 - 5.4 g/dL 05/02/2025 12:54 PM CDT [facility] % ALPHA 1 GLOBULIN 5.0(H) 2.9 - 4.9 % 05/02/2025 12:54 PM CDT [facility] ALPHA 1 0.3 0.2 - 0.4 g/dL 05/02/2025 12:54 PM CDT [facility] % ALPHA 2 GLOBULIN 13.2(H) 7.1 - 11.8 % 05/02/2025 12:54 PM CDT [facility] ALPHA 2 0.8 0.5 - 1.0 g/dL 05/02/2025 12:54 PM CDT [facility] % BETA 13.5(H) 8.4 - 13.1 % 05/02/2025 12:54 PM CDT [facility] BETA-GLOBULIN 0.9 0.5 - 1.1 g/dL 05/02/2025 12:54 PM CDT [facility] % GAMMA GLOBULIN 9.1(L) 11.1 - 18.8 % 05/02/2025 12:54 PM CDT [facility] GAMMA 0.6(L) 0.7 - 1.5 g/dL 05/02/2025 12:54 PM CDT [facility] IMMUNOGLOBULIN G 454(L) 552 - 1,631 mg/dL 05/02/2025 12:54 PM CDT [facility] IMMUNOGLOBULIN A 72 69 - 517 mg/dL 05/02/2025 12:54 PM CDT [facility] IMMUNOGLOBULIN M 85 33 - 293 mg/dL 05/02/2025 12:54 PM CDT [facility] INTERPRETATION SERUM No abnormal protein band is detected by serum protein electrophoresis. Serum immunofixation electrophoresis is negative for monoclonal immunoglobulins. Reviewed by Rancho Alan M.D. 05/02/2025 12:54 PM CDT [facility] A/G RATIO, SERUM 1.4 05/02/20 12:54 PM CDT [facility] Blood Venipuncture / Unknown 04/29/2025 10:20 AM CDT 04/29/2025 10:20 AM CDT [facility] PAC CHEMISTRY ORDERABLES Aure l Result [facility] [address] [place] [address], * FOLIC ACID (FOLATE) (04/29/2025 10:20 AM CDT) FOLATE 31.4 7.0 - 31.4 ng/mL 04/29/2025 2:52 PM CDT [facility] IS THE PATIENT REQUIRED TO BE FASTING? No 04/29/2025 2:52 PM CDT [facility] Blood Venipuncture / Unknown 04/29/2025 10:20 AM CDT 04/29/2025 10:20 AM CDT [facility] PAC CHEMISTRY ORDERABLES Aure l Result [facility] [address] [place] [address] * FERRITIN (04/29/2025 10:20 AM CDT) Pathologist [facility] FERRITIN 150 5 - 204 ng/mL 04/29/2025 12:24 PM CDT [facility] Blood Venipuncture / Unknown 04/29/2025 10:20 AM CDT 04/29/2025 10:20 AM CDT Krystin Ramirez PAC CHEMISTRY ORDERABLES Aure l Result [facility] [address] [place] [address] * (ABNORMAL) CMP (COMPREHENSIVE METABOLIC PANEL) (04/29/2025 10:20 AM CDT) Pathologist [facility] SODIUM 134(L) 136 - 145 mmol/L 04/29/2025 12:03 PM CDT [facility] POTASSIUM 4.0 3.5 - 5.1 mmol/L 04/29/2025 12:03 PM CDT [facility] CHLORIDE 101 98 - 107 mmol/L 04/29/2025 12:03 PM CDT [facility] CO2, VENOUS 26 22 - 30 mmol/L 04/29/2025 12:03 PM CDT [facility] ANION GAP 11.0 <18.0 mmol/L 04/29/2025 12:03 PM CDT [facility] GLUCOSE 92 70 - 99 mg/dL 04/29/2025 12:03 PM CDT [facility] BUN 15 10 - 20 mg/dL 04/29/2025 12:03 PM CDT [facility] CREATININE, BLOOD 0.62 0.60 - 1.00 mg/dL 04/29/2025 12:03 PM CDT [facility] BUN/CREATININE RATIO 24(H) 12 - 20 ratio 04/29/2025 12:03 PM CDT [facility] TOTAL PROTEIN 6.8 6.0 - 8.0 g/dL 04/29/2025 12:03 PM CDT [facility] ALBUMIN 4.4 3.5 - 5.0 g/dL 04/29/2025 12:03 PM CDT [facility] A/G RATIO 1.8 1.0 - 2.2 04/29/2025 12:03 PM CDT [facility] CALCIUM 9.3 8.7 - 10.5 mg/dL 04/29/2025 12:03 PM CDT [facility] T BILI 0.2 0.2 - 1.2 mg/dL 04/29/2025 12:03 PM CDT [facility] SGOT (AST) 29 <43 U/L 04/29/2025 12:03 PM CDT [facility] SGPT (ALT) 21 <56 U/L 04/29/2025 12:03 PM CDT [facility] ALKALINE PHOSPHATASE 77 40 - 150 U/L 04/29/2025 12:03 PM CDT [facility] IS THE PATIENT REQUIRED TO BE FASTING? No 04/29/2025 12:03 PM CDT [facility] GFR, ESTIMATED >60 >=60 04/29/2025 12:03 PM CDT [facility] Comment: Creatinine Clearance is the preferred criteria for selecting drug dose adjustments in renally impaired patients. The GFR is provided as additional pertinent clinical information. GFR is reported in mL/min/1.73 sq m. Calculation based on the Chronic Kidney Disease Epidemiology Collaboration (CKD- EPI) equation refit without adjustment for race. GFR, EST. >60 >=60 025 12:03 PM CDT [facility] GFR, EST. NONAFRICAN >60 >=60 04/29/2025 12:03 PM CDT [facility] Blood Venipuncture / Unknown 04/29/2025 10:20 AM CDT 04/29/2025 10:20 AM CDT us Krystin Ramirez PAC CHEMISTRY ORDERABLES Aure l Result [facility] [address] [facility] [place] [address] from Last 3 Months Insurance MEDICARE C [facility] Care Teams Django Developer Relationship Specialty Start Date End Date Aniceto Otero MD [address] [place] [address] PCP - General Internal Medicine 04/16/25
--- OUTSIDE RECORDS SUMMARY | 2025-06-13 10:21 | XMS_ITS | Encounter Summary ---
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 Gender Identity Female 09/19/2019 7:09 AM BEAUTY PARLOR CLEANER Sexual Orientation Not on file documented as [...] on filedocumented in this encounter Care Teams Paper Cup Machine Operator Relationship Specialty Start Date End Date Aniceto Otero MD PCP - General 01/25/18 Venancio Trinidad MD [address] [place] [address] Referring Physician Obstetrics and Gynecology 01/26/23 Vaishnavi Tran MD [address] [place] [address] Consulting Physician Rheumatology 01/26/23 Brittany Harrison MD [address] [place] [address] Radiation Oncologist Radiation Oncology 03/22/23 documented as of this encounter
--- OUTSIDE RECORDS SUMMARY | 2025-06-13 10:21 | XMS_ITS | Encounter Summary ---
Author Organization [facility] Address [address] [place] [address] Phone Care Team Providers Care Cleaners Name Role Phone Aniceto Otero MD Primary Care Provider + [phone] Venancio Trinidad MD Unavailable [phone] Vaishnavi Tran MD Unavailable [phone] Brittany Harrison MD Unavailable [phone] Encounter Details Date Type Department Care Team [...] on file Legal 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:35 AM WELDING EQUIPMENT REPAIRER Gender Identity Female 09/19/2019 7:09 AM WELDING EQUIPMENT REPAIRER Sexual Orientation Not on file documented as [...] on filedocumented in this encounter Care Teams Cleaners Relationship Specialty Start Date End Date Aniceto Otero MD PCP - General 01/25/18 Venancio Trinidad MD [address] [place] [address] Referring Physician Obstetrics and Gynecology 01/26/23 Vaishnavi Tran MD [address] [place] [address] Consulting Physician Rheumatology 01/26/23 Brittany Harrison MD [address] [place] [address] Radiation Oncologist Radiation Oncology 03/22/23 documented as of this encounter
--- OUTSIDE RECORDS SUMMARY | 2025-06-13 10:21 | XMS_ITS | Encounter Summary ---
Author Organization [facility] Address [address] [place] [address] Phone Care Team Providers Care Surgeon/President Name Role Phone Aniceto Otero MD Primary Care Provider + [phone] Venancio Trinidad MD Unavailable [phone] Vaishnavi Tran MD Unavailable [phone] Brittany Harrison MD Unavailable [phone] Encounter Details Date Type Department Care Team [...] on file Legal 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:35 AM FIRE PATROL Gender Identity Female 09/19/2019 7:09 AM FIRE PATROL Sexual Orientation Not on file documented as [...] on filedocumented in this encounter Care Teams Surgeon/President Relationship Specialty Start Date End Date Aniceto Otero MD PCP - General 01/25/18 Venancio Trinidad MD [address] [place] [address] Referring Physician Obstetrics and Gynecology 01/26/23 Vaishnavi Tran MD [address] [facility] [facility] [address] [place] [address] Consulting Physician Rheumatology 01/26/23 Brittany Harrison MD [address] [facility] [address] [place] [address] Radiation Oncologist Radiation Oncology 03/22/23 documented as of this encounter
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
--- OUTSIDE RECORDS SUMMARY | 2025-06-13 10:21 | XMS_ITS ---
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 No medications schedul ed. Past Treatment and Therapy Plans
--- OUTSIDE RECORDS SUMMARY | 2025-06-13 10:21 | XMS_ITS ---
Author Organization [facility] Address [address] [place] [address] Care Team Providers Care College And Career Counselor Name Role Phone Aniceto Otero MD Primary Care Provider + [phone] Venancio Trinidad MD Unavailable [phone] Vaishnavi Tran MD Unavailable [phone] Brittany Harrison MD Unavailable [phone] Active Problems Problem Noted Date Diagnosed Date [...]
== END 2025-06-13 10:17 | disposition home or self-care (01) ==
PROVIDERS: PCP Internal Medicine; Visit Provider Internal Medicine Gastroenterology
DX: D50.9 Iron deficiency anemia, unspecified (principal)
CPT/HCPCS: 74018

== ENCOUNTER 2025-06-17 11:36 | Outpatient (CLI) | payer MEDICARE, SELFPAY ==
--- NOTE | ~2025-06-17 | MM_ITS ---
EXAMINATION: MM screening [facility] BI w charli HISTORY: Screening TECHNIQUE: Craniocaudal and mediolateral oblique 3-D tomosynthesis images were obtained and synthetic 2-D images were generated. CAD analysis was submitted and interpreted. COMPARISON: Comparison to multiple prior studies sequentially, with oldest reviewed study dated 06/20/2018. BREAST PARENCHYMAL COMPOSITION: Not dense: There are scattered areas of fibroglandular density. FINDINGS: There is no evidence of suspicious mass, calcification, or architectural distortion to suggest malignancy in either breast. There has been no suspicious interval change. IMPRESSION: 1. No mammographic evidence of malignancy. 2. Recommend routine screening mammography in one year. BI-RADS Category 1: Negative Reviewed, dictated and finalized at location B.
== END 2025-06-17 11:37 | disposition home or self-care (01) ==
PROVIDERS: Visit Provider Obstetrics & Gynecology
DX: Z12.31 Encounter for screening mammogram for malignant neoplasm of breast (principal)
CPT/HCPCS: 77063; 77067

== ENCOUNTER 2025-06-25 05:39 | Outpatient (CLI) | payer MEDICARE, SELFPAY ==
--- OUTSIDE RECORDS SUMMARY | 2010-03-25 08:00 | XMS_ITS | Continuity of Care Document ---
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 Name Role Phone Alexandr PRATT FACS, Leopoldo Unavailable Unavailab le Procedures Procedure Date Optic Nerve Topography Optic Nerve Topography Contact Lens Hydrophilic, Spherical Contact Lens Hydrophilic, Spherical Delivery Fee/S&H Office/outpatient Visit, Est CL Replacement - [facility] Other 009 Delivery Fee Eye Exam Established Pt CL Replacement - [facility] Other 008 Delivery Fee CL Replacement - [facility] Other 008 Delivery Fee Eye Exam & Treatment Fundus Photography W/ Report CL Replacement - [facility] Other 007 Delivery Fee CL Replacement - [facility] Other 007 Delivery Fee Advance Directives Directive Yes / No Effective Date File Name No Information Encounters Encounter Description Practice Location Reason(s) For Visit Diagnoses Date Provider Providers Copied on Encounter [facility], [address] [facility] [address], [place], [place], [address], [place] tel:[phone] SEC Alan Castellanos No Information 0 Alexandr Mina. [address] [facility], [address], [place], [place], [address], [place]. tel:[phone] Referring Provider: Leopoldo Adame [address] [place] [address], [place], [address] . tel:[phone] [facility], [address] [place] [address] [address], [place], [place], [address], [place] tel:[phone] SEC Alan Rodríguezbergbarbara No Information Ant-1 0-201 0 [facility] . [address] [facility], [address], [place], [address], . tel:[phone] Referring Provider: Jesse Hassan, [address] [facility] [address], [place], [address] . tel:[phone] sulting Provider: Latha Reyes, [address] [place] [address], [address]. tel:[phone] [facility], [address] [place] [address] [address], [place], [place], [address], [place] tel:[phone] SEC Alan Castellanos No Information Mar-2 3-201 0 [facility] . [address] [facility], [address], [place], [address], . tel:[phone] Referring Provider: Jesse Hassan, [address] [facility] [address], [place], [address] . tel:[phone] sulting Provider: Latha Reyes, [address] [place] [address], [address]. tel:[phone] [facility], [address] [place] [address] [address], [place], [place], [address], [place] tel:[phone] SEC Alan Castellanos No Information Dec-0 7-200 9 Alexandr Mina. [address] [place] [address], [address], [place], [place], [address], [place]. tel:[phone] [facility], [address] [place] [address] [address], [place], [place], [address], [place] tel:[phone] SEC Alan N Lindbergh No Information Dale-3 0-200 9 [facility] . [address], [id number], . tel:[phone] Referring Provider: Jesse Hassan, [address], [address] . tel:[phone] sulting Provider: Latha Reyes, [address] [place] [address], [address]. tel:[phone] [facility], [address] [place] [address] [address], [place], [place], [address], [place] tel:[phone] SEC [place] N [place] No Information Ant-0 4-200 9 Nany Molina. [address] [place] [address], [id number], [place]. tel:[phone] [facility], [address] [place] [address] [address], [place], [place], [address], [place] tel:[phone] SEC [place] N [place] No Information Oct-2 7-200 8 [facility] . [address] [place] [address], [id number], [place]. tel:[phone] Referring Provider: Jesse Hassan, [address] [place] [address], [address] . tel:[phone] sulting Provider: Latha Reyes, [address] [place] [address], [address]. tel:[phone] [facility], [address] [place] [address] [address], [place], [place], [address], [place] tel:[phone] SEC Alan N [place] No Information Feb-0 4-200 8 [facility] . [address] [place] [address], [id number], . tel:[phone] Referring Provider: Jesse Hassan, [address], [address] . tel:[phone] sulting Provider: Latha Reyes, [address] [place], [address]. tel:[phone] [facility], [address] [place] [address] [address], [place], [place], [address], [place] tel:[phone] SEC [place] N [place] No Information Feb-0 4-200 8 Alexandr Mina. [address] [place] [address], [address], [place], [place], [address], [place]. tel:[phone] Referring Provider: Leopoldo Adame, [address] [place] [address] [address], [place], [address] . tel:[phone] [facility], [address] [place] [address] [address], [place], [place], [address], [place] tel:[phone] SEC Alan N [place]berg[place] No Information Dale-0 6-200 7 [facility] . [address] [place] [address], [address], [id number], [place]. tel:[phone] Referring Provider: Jesse Hassan, [address], [address] . tel:[phone] sulting Provider: Latha Reyes, [address] [place] [address], [address]. tel:[phone] [facility], [address] [place] [address] [address], [place], [place], [address], [place] tel:[phone] SEC Alan N [place]berg[place] No Information Feb-0 6-200 7 [facility] . [address] [place] [address], [address], [id number], . tel:[phone] Referring Provider: Jesse Hassan, [address] [facility] [address], [place], [address] . tel:[phone] sulting Provider: Latha Reyes, [address] [place], [address]. tel:[phone] Family History Family Member Type Diagnosis Age At Onset No Information Payers Payer name Insurance type Covered republican ID Authoriza tion(s) No Information Social History Type Description Quantity Date Captured Comments Sex Female Smoking Status No Information Chief Complaint And Reason For Visit No Information Reason For Referral Reason For Referral No Information History Of Present Illness Encounter Date Complaint History Of Prese nt Illness No Information Functional Status Date Functional Assessmen t No Information Instructions Date Instruction Additional Infor mation No Information Assessments Type Assessment Date No Information Patient Care Teams Name Effective Dates (start - stop) Status Members No Information
--- OUTSIDE RECORDS SUMMARY | 2025-06-25 05:41 | XMS_ITS | Encounter Summary ---
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 Gender Identity Female 09/19/2019 7:09 AM KNITTING MACHINE FIXER Sexual Orientation Not on file documented as [...] on filedocumented in this encounter Care Teams Stock Pitcher Relationship Specialty Start Date End Date Aniceto Otero MD PCP - General 01/25/18 Venancio Trinidad MD [address] [place] [address] Referring Physician Obstetrics and Gynecology 01/26/23 Vaishnavi Tran MD [address] [facility] [address] [place] [address] Consulting Physician Rheumatology 01/26/23 Brittany Harrison MD [address] [facility] [address] [place] [address] Radiation Oncologist Radiation Oncology 03/22/23 documented as of this encounter
--- OUTSIDE RECORDS SUMMARY | 2025-06-25 05:41 | XMS_ITS | Encounter Summary ---
Author Organization [facility] Address [address] [place] [address] Phone Care Team Providers Care Tube Molder Fiberglass Name Role Phone Aniceto Otero MD Primary Care Provider + [phone] Venancio Trinidad MD Unavailable [phone] Vaishnavi Tran MD Unavailable [phone] Brittany Harrison MD Unavailable [phone] Encounter Details Date Type Department Care Team [...] on file Legal 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:35 AM E COMMERCE DEVELOPER Gender Identity Female 09/19/2019 7:09 AM E COMMERCE DEVELOPER Sexual Orientation Not on file documented as [...] on filedocumented in this encounter Care Teams Tube Molder Fiberglass Relationship Specialty Start Date End Date Aniceto Otero MD PCP - General 01/25/18 Venancio Trinidad MD [address] [place] [address] Referring Physician Obstetrics and Gynecology 01/26/23 Vaishnavi Tran MD [address] [place] [address] Consulting Physician Rheumatology 01/26/23 Brittany Harrison MD [address] [place] [address] Radiation Oncologist Radiation Oncology 03/22/23 documented as of this encounter
--- OUTSIDE RECORDS SUMMARY | 2025-06-25 05:41 | XMS_ITS | Encounter Summary ---
Author Organization [facility] Address [address] [place] [address] Phone Care Team Providers Care Washer Machine Name Role Phone Aniceto Otero MD Primary Care Provider + [phone] Venancio Trinidad MD Unavailable [phone] Vaishnavi Tran MD Unavailable [phone] Brittany Harrison MD Unavailable [phone] Encounter Details Date Type Department Care Team [...] on file Legal 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:35 AM OUTBOUND SALES AGENT Gender Identity Female 09/19/2019 7:09 AM OUTBOUND SALES AGENT Sexual Orientation Not on file documented as [...] on filedocumented in this encounter Care Teams Washer Machine Relationship Specialty Start Date End Date Aniceto Otero MD PCP - General 01/25/18 Venancio Trinidad MD [address] [place] [address] Referring Physician Obstetrics and Gynecology 01/26/23 Vaishnavi Tran MD [address] [place] [address] Consulting Physician Rheumatology 01/26/23 Brittany Harrison MD [address] [place] [address] Radiation Oncologist Radiation Oncology 03/22/23 documented as of this encounter
--- OUTSIDE RECORDS SUMMARY | 2025-06-25 05:41 | XMS_ITS | Encounter Summary ---
Author Organization [facility] Address [address] [place] [address] Phone Care Team Providers Care Patent Solicitor Name Role Phone Aniceto Otero MD Primary Care Provider + [phone] Venancio Trinidad MD Unavailable [phone] Vaishnavi Tran MD Unavailable [phone] Brittany Harrison MD Unavailable [phone] Encounter Details Date Type Department Care Team [...] on file Legal 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:35 AM HEDIS COORDINATOR Gender Identity Female 09/19/2019 7:09 AM HEDIS COORDINATOR Sexual Orientation Not on file documented as [...] on filedocumented in this encounter Care Teams Patent Solicitor Relationship Specialty Start Date End Date Aniceto Otero MD PCP - General 01/25/18 Venancio Trinidad MD [address] [place] [address] Referring Physician Obstetrics and Gynecology 01/26/23 Vaishnavi Tran MD [address] [place] [address] Consulting Physician Rheumatology 01/26/23 Brittany Harrison MD [address] [place] [address] Radiation Oncologist Radiation Oncology 03/22/23 documented as of this encounter
--- OUTSIDE RECORDS SUMMARY | 2025-06-25 05:41 | XMS_ITS | Encounter Summary ---
Author Organization [facility] Address [address] [place] [address] Phone Care Team Providers Care Digital Art Director Name Role Phone Aniceto Otero MD Primary Care Provider + [phone] Venancio Trinidad MD Unavailable [phone] Vaishnavi Tran MD Unavailable [phone] Brittany Harrison MD Unavailable [phone] Encounter Details Date Type Department Care Team [...] on file Legal 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:35 AM PHYSICAL THERAPY PROFESSOR Gender Identity Female 09/19/2019 7:09 AM PHYSICAL THERAPY PROFESSOR Sexual Orientation Not on file documented as [...] on filedocumented in this encounter Care Teams Digital Art Director Relationship Specialty Start Date End Date Aniceto Otero MD PCP - General 01/25/18 Venancio Trinidad MD [address] [place] [address] Referring Physician Obstetrics and Gynecology 01/26/23 Vaishnavi Tran MD [address] [facility] [address] [place] [address] Consulting Physician Rheumatology 01/26/23 Brittany Harrison MD [address] [facility] [address] [place] [address] Radiation Oncologist Radiation Oncology 03/22/23 documented as of this encounter
--- OUTSIDE RECORDS SUMMARY | 2025-06-25 05:41 | XMS_ITS | Encounter Summary ---
Author Organization [facility] Address [address] [place] [address] Phone Care Team Providers Care C D Reactor Operator Name Role Phone Aniceto Otero MD Primary Care Provider + [phone] Venancio Trinidad MD Unavailable [phone] Vaishnavi Tran MD Unavailable [phone] Brittany Harrison MD Unavailable [phone] Encounter Details Date Type Department Care Team [...] on file Legal 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:35 AM WIRE LATHER Gender Identity Female 09/19/2019 7:09 AM WIRE LATHER Sexual Orientation Not on file documented as [...] on filedocumented in this encounter Care Teams C D Reactor Operator Relationship Specialty Start Date End Date Aniceto Otero MD PCP - General 01/25/18 Venancio Trinidad MD [address] [place] [address] Referring Physician Obstetrics and Gynecology 01/26/23 Vaishnavi Tran MD [address] [facility] [address] [place] [address] Consulting Physician Rheumatology 01/26/23 Brittany Harrison MD [address] [facility] [address] [place] [address] Radiation Oncologist Radiation Oncology 03/22/23 documented as of this encounter
--- OUTSIDE RECORDS SUMMARY | 2025-06-25 05:41 | XMS_ITS | Encounter Summary ---
Author Organization [facility] Address [address] [place] [address] Phone Care Team Providers Care Lathe Operator Name Role Phone Aniceto Otero MD Primary Care Provider + [phone] Venancio Trinidad MD Unavailable [phone] Vaishnavi Tran MD Unavailable [phone] Brittany Harrison MD Unavailable [phone] Encounter Details Date Type Department Care Team (Late st Contact Info) Description 05/06/2025 Results Follow-Up [facility] Medicine Rheumatology [address] [facility] 5th [place] [address] [place] [address] Micheal Toro MD [address] [place] [address] Lipid panel Social History Tobacco Use Types [...] on file Legal 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:35 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 Gender Identity Female 09/19/2019 7:09 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 CONSULTANT Sexual Orientation Not on file documented as of this encounter Plan of Treatment Scheduled Procedures Name Priority Associated Diagnoses Date/Ti me COLONOSCOPY Open Access Cancer of endocervix (HCC) Pain, abdominal Loose bowel movements documented as of this encounter Visit Diagnoses Not on filedocumented in this encounter Care Teams Lathe Operator Relationship Specialty Start Date End Date Aniceto Otero MD PCP - General 01/25/18 Venancio Trinidad MD [address] [place] [address] Referring Physician Obstetrics and Gynecology 01/26/23 Vaishnavi Tran MD [address] [place] [address] Consulting Physician Rheumatology 01/26/23 Brittany Harrison MD [address] [place] [address] Radiation Oncologist Radiation Oncology 03/22/23 documented as of this encounter
--- OUTSIDE RECORDS SUMMARY | 2025-06-25 05:41 | XMS_ITS ---
Author Organization [facility] Address [address] [place] [address] Care Team Providers Care Direct Care Professional Name Role Phone Aniceto Otero MD Primary Care Provider + [phone] Venancio Trinidad MD Unavailable [phone] Vaishnavi Tran MD Unavailable [phone] Brittany Harrison MD Unavailable [phone] Active Problems Problem Noted Date Diagnosed Date [...]
--- OUTSIDE RECORDS SUMMARY | 2025-06-25 05:41 | XMS_ITS | Encounter Summary ---
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 Gender Identity Female 09/19/2019 7:09 AM PRODUCT/DEVICE TECHNOLOGIST Sexual Orientation Not on file documented as [...] on filedocumented in this encounter Care Teams Converter Operator Relationship Specialty Start Date End Date Aniceto Otero MD PCP - General 01/25/18 Venancio Trinidad MD [address] [place] [address] Referring Physician Obstetrics and Gynecology 01/26/23 Vaishnavi Tran MD [address] [place] [address] Consulting Physician Rheumatology 01/26/23 Brittany Harrison MD [address] [place] [address] Radiation Oncologist Radiation Oncology 03/22/23 documented as of this encounter
--- OUTSIDE RECORDS SUMMARY | 2025-06-25 05:41 | XMS_ITS | Encounter Summary ---
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:35 AM COLOR TECHNICIAN Gender Identity Female 09/19/2019 7:09 AM COLOR TECHNICIAN Sexual Orientation Not on file documented [...] on filedocumented in this encounter Care Teams Strapper Relationship Specialty Start Date End Date Aniceto Otero MD PCP - General 01/25/18 Venancio Trinidad MD [address] [place] [address] Referring Physician Obstetrics and Gynecology 01/26/23 Vaishnavi Tran MD [address] [facility] [address] [place] [address] Consulting Physician Rheumatology 01/26/23 Brittany Harrison MD [address] [facility] [address] [place] [address] Radiation Oncologist Radiation Oncology 03/22/23 documented as of this encounter
--- OUTSIDE RECORDS SUMMARY | 2025-06-25 05:42 | XMS_ITS ---
Author Organization [facility] Address [address] [place] [address] Phone Care Team Providers Care Healthcare Customer Service Name Role Phone Aniceto Otero MD Primary Care Provider [phone] Active Problems Problem Noted Date Diagnosed Date [...]
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
--- OUTSIDE RECORDS SUMMARY | 2025-06-25 05:42 | XMS_ITS | Clinical Summary ---
Author Organization 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 Oncology Services [address] [place] [address] Aniceto Otero MD 04/18/2025 10:00 AM CDT Clinical Support [facility] Oncology Services [address] [place] [address] Aniceto Otero MD Iron deficiency anemia due [...] Care Team (Late st Contact Info) Description 07/07/2025 9:20 AM CDT Office Visit [facility] Oncology Services [address] [place] [address] Krystin Ramirez Veronica, [facility] [address] [place] [address] Discharge Disposition: Discharged to home or Selfcare Health Maintenance Due Date Last Done Comments DEXA Bone Density 1955 Hepatitis C Virus (HCV) Screening 1955 Mammogram 1955 Cologuard 2000 Immunochemical Fecal Occult Blood 2000 Pneumococcal Immunization (50+ years) (3 of 3 - PCV20 or PCV21) 07/27/2021 06/01/2021, 01/02/2015 Welcome to Medicare (IPPE) G0402 09/18/2024 Influenza Immunization (#1) 05/19/202505/19, 06/08/2023, 06/21/2022, Additional [...] * (ABNORMAL) IRON,TRANSFERN,CALC.TIBC,%SAT (04/29/2025 10:20 AM CDT) IRON 38 25 - 156 mcg/dL 04/29/2025 12:03 PM CDT [facility] TRANSFERRIN 297 173 - 360 mg/dL 04/29/2025 12:03 PM CDT [facility] TIBC, CALCULATED 371 265 - 497 mcg/dL 04/29/2025 12:03 PM CDT [facility] % SATURATION * 10(L) 15 - 62 % 04/29/2025 12:03 PM CDT [facility] Blood Venipuncture / Unknown 04/29/2025 10:20 AM CDT 04/29/2025 10:20 AM CDT Krystin Ramirez PAC CHEMISTRY ORDERABLES Aure l Result [facility] [address] [place] [address] * (ABNORMAL) CBC WITH AUTO DIFFERENTIAL (04/29/2025 10:20 AM CDT) [facility] WBC 6.32 4.00 - 12.00 10(3)/mcL 04/29/2025 11:32 AM CDT [facility] RBC 3.43(L) 3.80 - 5.30 10(6)/mcL 04/29/2025 11:32 AM CDT [facility] HEMOGLOBIN (HGB) 9.5(L) 12.0 - 15.8 g/dL 04/29/2025 11:32 AM CDT [facility] HEMATOCRIT (HCT) 29.9(L) 36.0 - 47.0 % 04/29/2025 11:32 AM CDT [facility] MCV 87.2 82.0 - 96.0 fL 04/29/2025 11:32 AM CDT [facility] MCH 27.7 26.0 - 34.0 pg 04/29/2025 11:32 AM CDT [facility] MCHC 31.8 31.0 - 36.0 g/dL 04/29/2025 11:32 AM CDT [facility] PLATELET COUNT 496(H) 140 - 440 10(3)/[facility] 04/29/2025 11:32 AM CDT [facility] RDW 17.3(H) 11.8 - 15.5 % 04/29/2025 11:32 AM CDT [facility] MPV 9.3(L) 9.7 - 12.4 fL 04/29/2025 11:32 AM CDT [facility] NEUTROPHILS 70.5 47.0 - 73.0 % 04/29/2025 11:32 AM CDT [facility] LYMPHOCYTES 16.9(L) 18.0 - 42.0 % 04/29/2025 11:32 AM CDT [facility] MONOCYTES 9.5 4.0 - 12.0 % 04/29/2025 11:32 AM CDT [facility] EOSINOPHILS 1.7 0.0 - 5.0 % 04/29/2025 11:32 AM CDT [facility] BASOPHILS 0.8 0.0 - 1.0 % 04/29/2025 11:32 AM CDT [facility] ABSOLUTE NEUTROPHILS 4.45 1.60 - 7.70 10(3)/[facility] 04/29/2025 11:32 AM CDT [facility] ABSOLUTE LYMPHOCYTES 1.07(L) 1.30 - 3.20 10(3)/[facility] 04/29/2025 11:32 AM CDT [facility] ABSOLUTE MONOCYTES 0.60 0.20 - 1.00 10(3)/[facility] 04/29/2025 11:32 AM CDT [facility] ABSOLUTE EOSINOPHIL 0.11 0.00 - 0.40 10(3)/[facility] 04/29/2025 11:32 AM CDT [facility] ABSOLUTE BASOPHILS 0.05 0.00 - 0.10 10(3)/[facility] 04/29/2025 11:32 AM CDT [facility] NRBC PER 100 WBC 0 04/29/20 11:32 AM CDT [facility] Blood Venipuncture / Unknown 04/29/2025 10:20 AM CDT 04/29/2025 10:20 AM CDT us Krystin Ramirez PAC HEMATOLOGY ORDERABLES Fin al Result [facility] [address] [place] [address] * FREE KAPPA & LAMBDA LIGHT CHAINS SERUM (04/29/2025 10:20 AM CDT) Free [place] Lt Chn 18.66 3.30 - 19.40 mg/L 04/30/2025 9:27 AM CDT [facility] Free Lambda Lt Chn 12.12 5.71 - 26.30 mg/L 04/30/2025 9:27 AM CDT [facility] free sofia guzmán ratio 1.54 0.26 - 1.65 04/30/2025 9:27 AM CDT [facility] Blood Venipuncture / Unknown 04/29/2025 10:20 AM CDT 04/29/2025 10:20 AM CDT [facility] PAC CHEMISTRY ORDERABLES Aure l Result Performing Organization Address City/[facility]/ZIP Co de Phone Number [facility] [address] [place] [address], [place] * VITAMIN B12 (04/29/2025 10:20 AM CDT) VITAMIN B12 644 213 - 816 pg/mL 04/29/2025 1:27 PM CDT [facility] Blood Venipuncture / Unknown 04/29/2025 10:20 AM CDT 04/29/2025 10:20 AM CDT [facility] CHEMISTRY ORDERABLES Aure l Result Performing Organization Address [facility]/ZIP Co de Phone Number [facility] [address] [place] [address] * RETICULOCYTE COUNT (RETIC) (04/29/2025 10:20 AM CDT) RETICULOCYTES 1.8 0.5 - 2.0 % 04/29/2025 11:32 AM CDT [facility] Blood Venipuncture / Unknown 04/29/2025 10:20 AM CDT 04/29/2025 10:20 AM CDT [facility] PAC HEMATOLOGY ORDERABLES Fin al Result Performing Organization Address City/[facility]/ZIP Co de Phone Number [facility] [address] [place] [address] * LACTATE DEHYDROGENASE (LD) (04/29/2025 10:20 AM CDT) LDH 212 125 - 220 U/L 04/29/2025 12:03 PM CDT [facility] Blood Venipuncture / Unknown 04/29/2025 10:20 AM CDT 04/29/2025 10:20 AM CDT us Krystin Ramirez PAC CHEMISTRY ORDERABLES Aure l Result [facility] [address] [place] [address] * (ABNORMAL) IMMUNOFIXATION W/ ELECTROPHORESIS SERUM (04/29/2025 10:20 AM CDT) TOTAL PROTEIN 6.3 6.0 - 8.0 g/dL 05/02/2025 12:54 PM CDT [facility] % ALBUMIN 59.1 55.8 - 66.7 % 05/02/2025 12:54 PM CDT [facility] ALBUMIN SERUM 3.7 2.5 - 5.4 g/dL 05/02/2025 12:54 PM CDT [facility] % ALPHA 1 GLOBULIN 5.0(H) 2.9 - 4.9 % 05/02/2025 12:54 PM CDT [facility] ALPHA 1 0.3 0.2 - 0.4 g/dL 05/02/2025 12:54 PM CDT [facility] % ALPHA 2 GLOBULIN 13.2(H) 7.1 - 11.8 % 05/02/2025 12:54 PM CDT [facility] ALPHA 2 0.8 0.5 - 1.0 g/dL 05/02/2025 12:54 PM CDT [facility] % BETA 13.5(H) 8.4 - 13.1 % 05/02/2025 12:54 PM CDT [facility] BETA-GLOBULIN 0.9 0.5 - 1.1 g/dL 05/02/2025 12:54 PM CDT [facility] % GAMMA GLOBULIN 9.1(L) 11.1 - 18.8 % 05/02/2025 12:54 PM CDT [facility] GAMMA 0.6(L) 0.7 - 1.5 g/dL 05/02/2025 12:54 PM CDT [facility] IMMUNOGLOBULIN G 454(L) 552 - 1,631 mg/dL 05/02/2025 12:54 PM CDT [facility] IMMUNOGLOBULIN A 72 69 - 517 mg/dL 05/02/2025 12:54 PM CDT [facility] IMMUNOGLOBULIN M 85 33 - 293 mg/dL 05/02/2025 12:54 PM CDT [facility] INTERPRETATION SERUM No abnormal protein band is detected by serum protein electrophoresis. Serum immunofixation electrophoresis is negative for monoclonal immunoglobulins. Reviewed by Rancho Alan M.D. 05/02/2025 12:54 PM CDT [facility] A/G RATIO, SERUM 1.4 05/02/20 12:54 PM CDT [facility] Blood Venipuncture / Unknown 04/29/2025 10:20 AM CDT 04/29/2025 10:20 AM CDT [facility] PAC CHEMISTRY ORDERABLES Aure l Result [facility] [address] [place] [address], * FOLIC ACID (FOLATE) (04/29/2025 10:20 AM CDT) FOLATE 31.4 7.0 - 31.4 ng/mL 04/29/2025 2:52 PM CDT [facility] IS THE PATIENT REQUIRED TO BE FASTING? No 04/29/2025 2:52 PM CDT [facility] Blood Venipuncture / Unknown 04/29/2025 10:20 AM CDT 04/29/2025 10:20 AM CDT [facility] PAC CHEMISTRY ORDERABLES Aure l Result [facility] [address] [place] [address] * FERRITIN (04/29/2025 10:20 AM CDT) Pathologist [facility] FERRITIN 150 5 - 204 ng/mL 04/29/2025 12:24 PM CDT [facility] Blood Venipuncture / Unknown 04/29/2025 10:20 AM CDT 04/29/2025 10:20 AM CDT Krystin Martin Ramirez PAC CHEMISTRY ORDERABLES Aure l Result [facility] [address] [place] [address] * (ABNORMAL) CMP (COMPREHENSIVE METABOLIC PANEL) (04/29/2025 10:20 AM CDT) Pathologist [facility] SODIUM 134(L) 136 - 145 mmol/L 04/29/2025 12:03 PM CDT [facility] POTASSIUM 4.0 3.5 - 5.1 mmol/L 04/29/2025 12:03 PM CDT [facility] CHLORIDE 101 98 - 107 mmol/L 04/29/2025 12:03 PM CDT [facility] CO2, VENOUS 26 22 - 30 mmol/L 04/29/2025 12:03 PM CDT [facility] ANION GAP 11.0 <18.0 mmol/L 04/29/2025 12:03 PM CDT [facility] GLUCOSE 92 70 - 99 mg/dL 04/29/2025 12:03 PM CDT [facility] BUN 15 10 - 20 mg/dL 04/29/2025 12:03 PM CDT [facility] CREATININE, BLOOD 0.62 0.60 - 1.00 mg/dL 04/29/2025 12:03 PM CDT [facility] BUN/CREATININE RATIO 24(H) 12 - 20 ratio 04/29/2025 12:03 PM CDT [facility] TOTAL PROTEIN 6.8 6.0 - 8.0 g/dL 04/29/2025 12:03 PM CDT [facility] ALBUMIN 4.4 3.5 - 5.0 g/dL 04/29/2025 12:03 PM CDT [facility] A/G RATIO 1.8 1.0 - 2.2 04/29/2025 12:03 PM CDT [facility] CALCIUM 9.3 8.7 - 10.5 mg/dL 04/29/2025 12:03 PM CDT [facility] T BILI 0.2 0.2 - 1.2 mg/dL 04/29/2025 12:03 PM CDT [facility] SGOT (AST) 29 <43 U/L 04/29/2025 12:03 PM T [facility] SGPT (ALT) 21 <56 U/L 04/29/2025 12:03 PM T [facility] ALKALINE PHOSPHATASE 77 40 - 150 U/L 04/29/2025 12:03 PM T [facility] IS THE PATIENT REQUIRED TO BE FASTING? No 04/29/2025 12:03 PM CDT [facility] GFR, ESTIMATED >60 >=60 04/29/2025 12:03 PM T [facility] Comment: Creatinine Clearance is the preferred criteria for selecting drug dose adjustments in renally impaired patients. The GFR is provided as additional pertinent clinical information. GFR is reported in mL/min/1.73 sq m. Calculation based on the Chronic Kidney Disease Epidemiology Collaboration (CKD- EPI) equation refit without adjustment for race. GFR, EST. >60 >=60 025 12:03 PM CDT [facility] GFR, EST. NONAFRICAN >60 >=60 04/29/2025 12:03 PM [facility] Blood Venipuncture / Unknown 04/29/2025 10:20 AM CDT 04/29/2025 10:20 AM CDT Krystin Ramirez PAC CHEMISTRY ORDERABLES Aure sydney Result [facility] [address] [facility] [place] [address] from Last [address] [place] [address] MEDICARE [address] [facility] Care Teams Bilingual Student Tutor Relationship Specialty Start Date End Date Aniceto Otero MD [address] [place] [address] PCP - General Internal Medicine 04/16/25
== END 2025-06-25 05:40 | disposition home or self-care (01) ==
PROVIDERS: Referring Provider Nurse Practitioner; Visit Provider Internal Medicine Gastroenterology
PROC: (CPT 91110; principal; 2025-06-25 07:00)
DX: Z01.818 Encounter for other preprocedural examination (principal); D50.9 Iron deficiency anemia, unspecified
CPT/HCPCS: 91110